=== PATIENT | male | born 1950 | race Caucasian/White ===

== ENCOUNTER 2020-01-12 07:52 | Outpatient (REF) | payer MEDICARE, MEDICAID, SELFPAY ==
[2020-01-12 09:15] LABS: MANUAL DIFF FLAG NO
[2020-01-12 09:18] LABS: Basophils Percent Auto 0.4 % (0-2); Eosinophils Percent Auto 0.8 % (0-4); Hematocrit 39.1 % (42-52); Imm Gran Abs Auto 0.02 X10*3/uL (0.00-0.03); Imm Gran Pct Auto 0.4 % (0.0-0.4); Lymphocytes Percent Auto 39.5 % (20-40); Mean Corpuscular HGB Conc 33.2 g/dl (31.0-36.0); Mean Corpuscular Hemoglobin 30.1 pg (27.0-33.0); Mean Corpuscular Volume 90.5 fL (80-98); Mean Platelet Volume 9.6 fL (9.4-12.4); Monocytes Absolute Auto 0.5 X10*3/uL (0.1-1.2); Monocytes Percent Auto 10.1 % (2-11); Neutrophils Absolute Auto 2.5 X10*3/uL (2.0-8.3); Neutrophils Percent Auto 48.8 % (45-73); Platelet Count 199 X10*3/uL (160-400); Red Blood Count 4.32 X10*6/uL (4.60-5.80); Red Cell Distribution Width 13.1 % (11.0-16.0); White Blood Count 5.2 X10*3/uL (4.8-10.8)
[2020-01-12 09:48] LABS: Creatinine Urine 92.76 mg/dL; Microalbum/Creatinine Ratio Ur 150.9 ug/mg cr
[2020-01-12 09:52] LABS: Alanine Aminotransferase 14 U/L (0-40); Albumin Level 4.2 g/dL (3.5-5.0); Alkaline Phosphatase 77 U/L (39-117); Anion Gap 11 (12-20); Aspartate Amino Transferase 18 U/L (5-37); Bilirubin Total 0.4 mg/dL (0.0-1.0); Blood Urea Nitrogen 15 mg/dL (9-16); Carbon Dioxide 27 mmol/L (22-29); Chloride 103 mmol/L (96-108); Estimated Glomerular Filt Rate > 60; Glucose Random 216 mg/dL (60-115); Potassium 4.4 mmol/l (3.3-5.1); Sodium 137 mmol/L (135-145); Total Protein 7.3 g/dL (6.5-8.0)
[2020-01-12 10:06] LABS: Thyroid Stimulating Hormone 3.19 mIU/mL (0.32-4.0)
[2020-01-12 10:07] LABS: Cholesterol 88 mg/dL; HDL Cholesterol 32 mg/dL; LDL Cholesterol Calculated 35 mg/dl; Triglycerides 107 mg/dL
[2020-01-12 10:44] LABS: Estimated Average Glucose 240 mg/dL
== END 2020-01-12 07:53 | disposition home or self-care (01) ==
LOC: HO.LAB 07:52
PROVIDERS: PCP Internal Medicine; Visit Provider Internal Medicine
DX: E11.69 Type 2 diabetes mellitus with other specified complication (principal); M54.2 Cervicalgia; N43.3 Hydrocele, unspecified
CPT/HCPCS: 36415; 80053; 80061; 82043; 83036; 84443; 85025

== ENCOUNTER → 2020-03-01 14:32 | Outpatient (BNVA) | payer MEDICARE, MEDICAID, SELFPAY | PROVIDERS: Visit Provider Student in an Organized Health Care Education/Training Program | DX: M65.312 Trigger thumb, left thumb (principal) | CPT/HCPCS: 20550; 99211 ==

== ENCOUNTER 2020-05-03 15:25 | Emergency (ER) | payer MEDICARE, MEDICAID, SELFPAY ==
[2020-05-03 15:38] VITALS: BP 126/69; BP 128/60; PULSE 85; PULSE 86; RESP 16; TEMP 37.4; O2SAT 97; O2SAT 99; BMI 25.8
--- NOTE | 2020-05-03 16:22 | XR_ITS ---
EXAMINATION: XR CHEST CLINICAL INFORMATION: Cough, assess for pneumonia. COMPARISON: None TECHNIQUE: Portable upright AP view of the chest was obtained. FINDINGS: Patient is slightly rotated. There is no airspace consolidation or groundglass opacity. Tapering right cardiophrenic angle is consistent with areolar tissue on slightly rotated image. The heart is normal in size. The vascularity is normal. The costophrenic sulci are clear. The hilar and mediastinal contours are normal. There are degenerative changes thoracic spine. XR/XR chest 1V IMPRESSION: Unremarkable examination.
--- NOTE | 2020-05-03 16:27 | ED.GENADULT ---
HPI - General Adult General Chief complaint: General Medical Stated complaint: fever chills Time Seen by Provider: 05/03/20 16:17 Source: patient Mode of arrival: ambulatory Limitations: no limitations History of Present Illness HPI narrative: 69-year-old male with a past medical history of diabetes and high cholesterol here with tactile temp, chills, headache, cough, body aches times 24 hours. No shortness of breath, chest pain, vomiting, diarrhea, abdominal pain. Onset (ago): hour(s) Related Data Home Medications Medication Instructions Recorded Confirmed clonazepam 1 mg tablet 1 mg PO BEDTIME 03/01/20 03/01/20 gabapentin 300 mg capsule 300 mg PO TID 03/01/20 03/01/20 insulin glargine 100 unit/mL 1 unit SUBCUT DIRECTED ml 03/01/20 03/01/20 subcutaneous solution insulin lispro 100 unit/mL 1 sliding scale dose SUBCUT 03/01/20 03/01/20 subcutaneous solution USEASDIRECTD lisinopril 10 mg tablet 10 mg PO DAILY 03/01/20 03/01/20 metformin 1,000 mg tablet 1,000 mg PO BID 03/01/20 03/01/20 quetiapine 100 mg tablet 100 mg PO BEDTIME 03/01/20 03/01/20 rosuvastatin 10 mg tablet 10 mg PO DAILY 03/01/20 03/01/20 Allergies Allergy/AdvReac Type Severity Reaction Status Date / Time No Known Allergies Allergy Verified 05/03/20 15:41 [No Known Allergies*] Review of Systems Review of Systems: Yes all other systems are reviewed and are negative Constitutional: Constitutional: Reports no additional constitutional complaints, Reports body ache(s), Reports chills, Reports fever(s), Reports headache(s) and Denies weakness Eyes: Eyes: Reports no additional eye complaints and Denies change in vision ENT: Reports system reviewed and no additional complaints, except as documented, Denies dizziness, Reports headache(s), Denies nasal congestion, Denies nasal discharge and Denies neck pain Cardiovascular: Cardiovascular: Reports no additional cardiovascular complaints, Denies chest pain, Denies leg edema and Denies dyspnea Respiratory: Respiratory: Reports no additional respiratory complaints, Reports cough and Denies dyspnea Gastrointestinal: Gastrointestinal: Reports no additional gastrointestinal complaints, Denies abdominal pain, Denies diarrhea, Denies nausea and Denies vomiting Genitourinary: Genitourinary: Denies urinary incontinence Musculoskeletal: Musculoskeletal: Reports no additional musculoskeletal complaints, Denies back pain, Denies arthralgias, Denies joint swelling, Denies neck pain, Denies numbness and Denies tingling Integumentary/Breasts: Skin/Breast: Reports system reviewed and no additional complaints, except as docu and Denies rash Neurologic: Reports system reviewed and no additional complaints, except as documented, Denies Abnormal speech present, Denies dizziness, Reports headache(s), Denies numbness, Denies tingling and Denies weakness REPLACED BY [facility] Past Medical History Attestation statement: The following information was validated with the patient. Source: old records reviewed and nursing notes reviewed Medical History Diabetes High cholesterol Social History Social History Alcohol intake: never Smoking Status: Never smoker Use of substances other than those prescribed or required for medical reasons: No Advance Directives: No Advance Directives Information Provided: Yes Physical Exam Vital Signs: Vital Signs: Last Vital Signs Temp 99.3 F 05/03/20 15:38 Pulse 86 05/03/20 15:38 Resp 16 05/03/20 15:38 BP 126/69 05/03/20 15:38 Pulse Ox 99 05/03/20 15:38 Body Mass Index 25.8 Const: General: cooperative, healthy appearing, comfortable and no acute distress Orientation/consciousness: patient oriented x3 Limitations: no limitations HENMT: Head: Yes normal to inspection Ears: hearing grossly normal bilaterally General nose exam: Normal external nose present Face and sinus: Yes normal facial exam Mouth: Normal oral and palatal mucosa present Throat: Yes posterior oropharynx normal Eyes: General: appearance normal, both eyes and all related structures Pupils: Equal, round and reactive pupils present Neck: Neck: Yes normal visual inspection Chest: Chest palpation & inspection: normal inspection of the chest Resp: Effort & Inspection: normal respiratory effort Auscultation: clear to auscultation bilaterally Cardio: Rate: regular rate Rhythm: regular rhythm Peripheral pulses: Peripheral pulses 2+ throughout GI: Inspection: Yes normal to inspection Palpation (GI): Soft to palpation and nontender Auscultation: normal bowel sounds Back/Spine/Pelvis: Thoracic/Lumbar Spine: thoracic and lumbar spine normal to inspection Skin: General skin exam: no rashes or lesions noted Neuro: General: patient oriented x3, no focal motor deficits and normal sensation to monofilament Cranial nerves: Yes Equal, round and reactive pupils present Cognition (Neuro): normal cognition Speech: No Abnormal speech present Gait exam (Neuro): Normal gait present Motor exam (neuro): 5/5 motor strength present throughout Extrem: General: Yes normal to inspection Course Course Course Narrative: 69-year-old male here with tactile temps, chills, cough, body aches x1 day. Will need COVID test, chest x-ray, labs. 1745-COVID test positive. Chest x-ray unremarkable for underlying infection. Labs show mild leukopenia and mild thrombocytopenia which are consistent with a viral infection. No other acute findings. Stable saturations with oxygen greater than 98%. No tachypnea. Well appearing. Reviewed worrisome signs and symptoms and when to return to the emergency department. Comfortable discharge home. Medical Decision Making Medical Records Medical records reviewed: Yes I reviewed the patient's medical records. Lab Data Lab results reviewed: Yes I reviewed the patient's lab results. Result diagrams: 05/03/20 17:00 05/03/20 17:00 Labs: Lab Results 05/03/20 05/03/20 05/03/20 Range/Units 16:29 17:00 17:00 WBC 3.2 L (4.8-10.8) X10*3/uL RBC 4.05 L (4.60-5.80) X10*6/uL Hgb 12.3 L (14.0-18.0) g/dl Hct 37.0 L (42-52) % MCV 91.4 (80-98) fL MCH 30.4 (27.0-33.0) pg MCHC 33.2 (31.0-36.0) g/dl RDW 13.2 (11.0-16.0) % Plt Count 152 L (160-400) X10*3/uL MPV 9.5 (9.4-12.4) fL Immature Gran % (Auto) 0.3 (0.0-0.4) % Neut % (Auto) 57.1 (45-73) % Lymph % (Auto) 23.5 (20-40) % [place] % (Auto) 17.9 H (2-11) % Eos % (Auto) 0.3 (0-4) % Baso % (Auto) 0.9 (0-2) % Lymph # (Auto) 0.8 L (1.2-4.9) X10*3/uL [place] # (Auto) 0.6 (0.1-1.2) X10*3/uL Eos # (Auto) 0.0 (0.0-0.4) X10*3/uL Baso # (Auto) 0.0 (0.0-0.2) X10*3/uL Abs Immat Gran (auto) 0.01 (0.00-0.03) X10*3/uL Absolute Neuts (auto) 1.8 L (2.0-8.3) X10*3/uL Absolute Nucleated RBC 0.000 (0.0-0.012) X10*3/uL Nucleated RBC % (auto) 0.0 (0.0-0.2) /100WBC Sodium 135 (135-145) mmol/L Potassium 4.6 (3.3-5.1) mmol/l Chloride 102 (96-108) mmol/L Carbon Dioxide 26 (22-29) mmol/L Anion Gap 12 (12-20) BUN 17 H (9-16) mg/dL Creatinine 0.92 (0.5-1.4) mg/dL Estim Creat Clear Calc 75.3 Estimated GFR > 60 Random Glucose 218 H (60-115) mg/dL Calcium 8.6 (8.4-10.2) mg/dL COVID-19 (MYRNA) Positive A (Negative) COVID-19 Clin Com See Note Imaging Data Chest x-ray: Attestation: I personally reviewed and interpreted this imaging study as follows: Radiologist's impression: [address] [id number] ReportSigned Patient: Sudhakar GarciaDominick#: [id number]: 3Acct:[id number]/Sex: 69 / MADM Date: 05/03/20Loc: Rachna Alvarez: Ordering Physician: POOJA GOMEZ NP Date of Service: 05/03/20 Procedure(s): XR chest 1V Accession Number(s): [id number] cc: POOJA GOMEZ NP~ EXAMINATION: XR CHEST CLINICAL INFORMATION: Cough, assess for pneumonia. COMPARISON: None TECHNIQUE: Portable upright AP view of the chest was obtained. FINDINGS: Patient is slightly rotated. There is no airspace consolidation or groundglass opacity. Tapering right cardiophrenic angle is consistent with areolar tissue on slightly rotated image. The heart is normal in size. The vascularity is normal. The costophrenic sulci are clear. The hilar and mediastinal contours are normal. There are degenerative changes thoracic spine. XR/XR chest 1V IMPRESSION: Unremarkable examination. Discharge Plan Discharge Clinical Impression: COVID-19 Patient Disposition: Home, Self-Care Instructions: COVID-19 (Coronavirus Disease 2019) (ED) Additional Instructions: You tested positive today for COVID-19. This is a viral infection will self resolve. You need to quarantine in your home for 10 days and your symptoms resolve for 24 hours. Take Motrin or Tylenol if able as needed for pain or fever Increase fluids, rest Return for severe shortness of breath or chest pain or fever which does not respond to Motrin or Tylenol Consider buying a pulse oximeter and monitoring your oxygen levels at home and returning to the emergency department if your levels drop below 90% Prescriptions: No Action quetiapine [Seroquel] 100 mg tablet 100 mg PO BEDTIME RF: 0 lisinopril 10 mg tablet 10 mg PO DAILY RF: 0 metformin 1,000 mg tablet 1,000 mg PO BID RF: 0 gabapentin 300 mg capsule 300 mg PO TID RF: 0 rosuvastatin 10 mg tablet 10 mg PO DAILY RF: 0 clonazepam 1 mg tablet 1 mg PO BEDTIME RF: 0 insulin lispro [Humalog U-100 Insulin] 100 unit/mL solution 1 sliding scale dose subcut USEASDIRECTD RF: 0 Lantus U-100 Insulin 100 unit/mL solution 1 unit subcut DIRECTED RF: 0 Referrals: Carine Chamberlain MD [Primary Care Provider] - 2 days Interventions: ED Discharge Assessment Last Done: 05/03/20 18:18 Discharge Date/Time: 05/03/20 18:10 Print Language: American
[2020-05-03 16:51] LABS: COVID-19 Test Positive (Negative); IDNOW Serial# 9DD0AD1C
[2020-05-03 17:20] LABS: MANUAL DIFF FLAG NO
[2020-05-03 17:23] LABS: Basophils Percent Auto 0.9 % (0-2); Eosinophils Percent Auto 0.3 % (0-4); Hemoglobin 12.3 g/dl (14.0-18.0); Imm Gran Abs Auto 0.01 X10*3/uL (0.00-0.03); Imm Gran Pct Auto 0.3 % (0.0-0.4); Lymphocytes Absolute Auto 0.8 X10*3/uL (1.2-4.9); Lymphocytes Percent Auto 23.5 % (20-40); Mean Corpuscular HGB Conc 33.2 g/dl (31.0-36.0); Mean Corpuscular Hemoglobin 30.4 pg (27.0-33.0); Mean Corpuscular Volume 91.4 fL (80-98); Mean Platelet Volume 9.5 fL (9.4-12.4); Monocytes Absolute Auto 0.6 X10*3/uL (0.1-1.2); Monocytes Percent Auto 17.9 % (2-11); Neutrophils Absolute Auto 1.8 X10*3/uL (2.0-8.3); Neutrophils Percent Auto 57.1 % (45-73); Platelet Count 152 X10*3/uL (160-400); Red Blood Count 4.05 X10*6/uL (4.60-5.80); Red Cell Distribution Width 13.2 % (11.0-16.0); White Blood Count 3.2 X10*3/uL (4.8-10.8)
[2020-05-03 17:43] LABS: Anion Gap 12 (12-20); Blood Urea Nitrogen 17 mg/dL (9-16); Calcium 8.6 mg/dL (8.4-10.2); Carbon Dioxide 26 mmol/L (22-29); Chloride 102 mmol/L (96-108); Creatinine Clr Calc Pharmacy 75.3; Estimated Glomerular Filt Rate > 60; Glucose Random 218 mg/dL (60-115); Potassium 4.6 mmol/l (3.3-5.1); Sodium 135 mmol/L (135-145)
== END 2020-05-03 18:10 | disposition home or self-care (01) ==
PROVIDERS: Nurse Practitioner Family; Emergency Provider Internal Medicine; PCP Internal Medicine
DX: U07.1 COVID-19 (principal); E11.9 Type 2 diabetes mellitus without complications; Z79.4 Long term (current) use of insulin
CPT/HCPCS: 36415; 71045; 80048; 85025; 87635; 99283; 99284

== ENCOUNTER 2020-05-10 15:58 | Emergency (ER) | payer MEDICARE, MEDICAID, SELFPAY ==
[2020-05-10 16:01] VITALS: BP 119/70; BP 140/72; PULSE 106; PULSE 115; RESP 35; TEMP 37.9; O2SAT 96; BMI 27.4
--- NOTE | 2020-05-10 16:08 | ED.SOB ---
HPI - SOB/Dyspnea General Stated Complaint: tachycardia covid Time Seen by Provider: 05/10/20 16:00 Related Data Home Medications Medication Instructions Recorded Confirmed clonazepam 1 mg tablet 1 mg PO BEDTIME 03/01/20 03/01/20 gabapentin 300 mg capsule 300 mg PO TID 03/01/20 03/01/20 insulin glargine 100 unit/mL 1 unit SUBCUT DIRECTED ml 03/01/20 03/01/20 subcutaneous solution insulin lispro 100 unit/mL 1 sliding scale dose SUBCUT 03/01/20 03/01/20 subcutaneous solution USEASDIRECTD lisinopril 10 mg tablet 10 mg PO DAILY 03/01/20 03/01/20 metformin 1,000 mg tablet 1,000 mg PO BID 03/01/20 03/01/20 quetiapine 100 mg tablet 100 mg PO BEDTIME 03/01/20 03/01/20 rosuvastatin 10 mg tablet 10 mg PO DAILY 03/01/20 03/01/20 Allergies Allergy/AdvReac Type Severity Reaction Status Date / Time No Known Allergies Allergy Verified 05/03/20 15:41 [No Known Allergies*] [facility] Past Medical History Medical History Diabetes High cholesterol Social History Social History Alcohol intake: never Smoking Status: Never smoker Discharge Plan Discharge Prescriptions: No Action quetiapine [Seroquel] 100 mg tablet 100 mg PO BEDTIME RF: 0 lisinopril 10 mg tablet 10 mg PO DAILY RF: 0 metformin 1,000 mg tablet 1,000 mg PO BID RF: 0 gabapentin 300 mg capsule 300 mg PO TID RF: 0 rosuvastatin 10 mg tablet 10 mg PO DAILY RF: 0 clonazepam 1 mg tablet 1 mg PO BEDTIME RF: 0 insulin lispro [Humalog U-100 Insulin] 100 unit/mL solution 1 sliding scale dose subcut USEASDIRECTD RF: 0 Lantus U-100 Insulin 100 unit/mL solution 1 unit subcut DIRECTED RF: 0
--- NOTE | 2020-05-10 16:20 | ED_ITS ---
HPI - General Adult General Chief complaint: Fever Stated complaint: tachycardia covid Time Seen by Provider: 05/10/20 16:00 Source: patient Mode of arrival: EMS Limitations: language barrier History of Present Illness HPI narrative: Patient COVID positive for last 1 week comes here for weakness body aches fever of reaching to 103 degrees F dry cough mild shortness of breath malaise and not feeling good checked his blood sugar was less than 200. Patient denies any nausea/vomiting/diarrhea no loss of taste sensations no loss of smell ambulatory as such Related Data Home Medications Medication Instructions Recorded Confirmed clonazepam 1 mg tablet 1 mg PO BEDTIME 03/01/20 03/01/20 gabapentin 300 mg capsule 300 mg PO TID 03/01/20 03/01/20 insulin glargine 100 unit/mL 1 unit SUBCUT DIRECTED ml 03/01/20 03/01/20 subcutaneous solution insulin lispro 100 unit/mL 1 sliding scale dose SUBCUT 03/01/20 03/01/20 subcutaneous solution USEASDIRECTD lisinopril 10 mg tablet 10 mg PO DAILY 03/01/20 03/01/20 metformin 1,000 mg tablet 1,000 mg PO BID 03/01/20 03/01/20 quetiapine 100 mg tablet 100 mg PO BEDTIME 03/01/20 03/01/20 rosuvastatin 10 mg tablet 10 mg PO DAILY 03/01/20 03/01/20 Allergies Allergy/AdvReac Type Severity Reaction Status Date / Time No Known Allergies Allergy Verified 05/03/20 15:41 [No Known Allergies*] Review of Systems Review of Systems: Constitutional : No Weight loss, ++ Fever, No Chills ENT/Mouth : No sore throat, No Rhinorrhea Eyes: No Eye Pain, No Swelling Cardiovascular : No Chest Pain, no palpitations Respiratory : No Cough, No Sputum, no shortness of breath Gastrointestinal : no Nausea, No Vomiting, No Diarrhea, No abdominal Pain, no black stools Genitourinary : No Dysuria, No Urinary Frequency Musculoskeletal : No joint pain, No Myalgias, No Joint Swelling Skin : No Skin Lesions, No rash Neuro : ++ Weakness, No Numbness, No Dizziness, No Headache Psych : No Anxiety/Panic, No Depression Heme/Lymph: No Bruising, No Lymphadenopathy Endocrine : No Polyuria, No Polydipsia All other systems reviewed and are negative PMFSH Past Medical History Medical History Anxiety Arthritis Diabetes High cholesterol HTN (hypertension) Social History Social History Alcohol intake: never Smoking Status: Never smoker Use of substances other than those prescribed or required for medical reasons: No Advance Directives: No Advance Directives Information Provided: No Physical Exam Vital Signs: Vital Signs: Last Vital Signs Temp 99.4 F 05/10/20 17:56 Pulse 89 05/10/20 17:56 Resp 16 05/10/20 17:56 BP 134/89 05/10/20 17:56 Pulse Ox 99 05/10/20 17:56 Body Mass Index 27.4 Appearance: Alert. Oriented X3. No acute distress. Febrile Eyes: Pupils equal, round and reactive to light. ENT: Pharynx normal. Neck: Normal inspection. Neck supple. CVS: Sinus tachycardia no murmur. Pulses normal. Respiratory: No respiratory distress. Breath sounds normal. Abdomen: Soft and nontender. Bowel sounds are present, no mass palpable, no CVA tenderness Skin: Skin warm and dry. Normal skin color. Normal skin turgor. Extremities: No lower extremity edema. Neuro: Oriented X 3. No motor deficit. No sensory deficit. Course Course Course Narrative: Patient with COVID infection for last 1 week x-ray negative no shortness of breath labs are stable still having the fever and malaise which is part of the COVID infection patient advised to rest at home drink plenty of fluid will discharge patient home Medical Decision Making MDM Narrative Medical decision making narrative: Patient with COVID-19 infection workup is essentially negative chest x-ray negative no shortness of breath saturating 96% at room air will discharge patient home Lab Data Lab results reviewed: Yes I reviewed the patient's lab results. Result diagrams: 05/10/20 16:54 05/10/20 16:54 Labs: Lab Results 05/10/20 05/10/20 05/10/20 Range/Units 16:54 16:54 16:54 WBC 2.9 L (4.8-10.8) X10*3/uL RBC 3.80 L (4.60-5.80) X10*6/uL Hgb 11.5 L (14.0-18.0) g/dl Hct 35.1 L (42-52) % MCV 92.4 (80-98) fL MCH 30.3 (27.0-33.0) pg MCHC 32.8 (31.0-36.0) g/dl RDW 13.2 (11.0-16.0) % Plt Count 152 L (160-400) X10*3/uL MPV 9.2 L (9.4-12.4) fL Immature Gran % (Auto) 0.3 (0.0-0.4) % Neut % (Auto) 59.5 (45-73) % Lymph % (Auto) 29.3 (20-40) % [place] % (Auto) 9.2 (2-11) % Eos % (Auto) 1.4 (0-4) % Baso % (Auto) 0.3 (0-2) % Lymph # (Auto) 0.9 L (1.2-4.9) X10*3/uL [place] # (Auto) 0.3 (0.1-1.2) X10*3/uL Eos # (Auto) 0.0 (0.0-0.4) X10*3/uL Baso # (Auto) 0.0 (0.0-0.2) X10*3/uL Abs Immat Gran (auto) 0.01 (0.00-0.03) X10*3/uL Absolute Neuts (auto) 1.8 L (2.0-8.3) X10*3/uL Absolute Nucleated RBC 0.000 (0.0-0.012) X10*3/uL Nucleated RBC % (auto) 0.0 (0.0-0.2) /100WBC Sodium 136 (135-145) mmol/L Potassium 4.5 (3.3-5.1) mmol/L Chloride 104 (96-108) mmol/L Carbon Dioxide 25 (22-29) mmol/L Anion Gap 12 (12-20) BUN 14 (9-16) mg/dL Creatinine 1.00 (0.5-1.4) mg/dL Estim Creat Clear Calc 69.3 Estimated GFR > 60 Random Glucose 199 H (60-115) mg/dL Lactic Acid 1.1 (0.5-2.0) mmol/L Calcium 7.9 L D (8.4-10.2) mg/dL Total Bilirubin 0.6 (0.0-1.0) mg/dL Direct Bilirubin 0.2 (0.0-0.5) mg/dL AST 46 H D (5-37) U/L ALT 21 (0-40) U/L Alkaline Phosphatase 66 (39-117) U/L Total Protein 6.6 (6.5-8.0) g/dL Albumin 3.7 (3.5-5.0) g/dL Lipase 38 (8-78) U/L 05/10/20 Range/Units 16:54 WBC (4.8-10.8) X10*3/uL RBC (4.60-5.80) X10*6/uL Hgb (14.0-18.0) g/dl Hct (42-52) % MCV (80-98) fL MCH (27.0-33.0) pg MCHC (31.0-36.0) g/dl RDW (11.0-16.0) % Plt Count (160-400) X10*3/uL MPV (9.4-12.4) fL Immature Gran % (Auto) (0.0-0.4) % Neut % (Auto) (45-73) % Lymph % (Auto) (20-40) % [place] % (Auto) (2-11) % Eos % (Auto) (0-4) % Baso % (Auto) (0-2) % Lymph # (Auto) (1.2-4.9) X10*3/uL [place] # (Auto) (0.1-1.2) X10*3/uL Eos # (Auto) (0.0-0.4) X10*3/uL Baso # (Auto) (0.0-0.2) X10*3/uL Abs Immat Gran (auto) (0.00-0.03) X10*3/uL Absolute Neuts (auto) (2.0-8.3) X10*3/uL Absolute Nucleated RBC (0.0-0.012) X10*3/uL Nucleated RBC % (auto) (0.0-0.2) /100WBC Sodium (135-145) mmol/L Potassium (3.3-5.1) mmol/L Chloride (96-108) mmol/L Carbon Dioxide (22-29) mmol/L Anion Gap (12-20) BUN (9-16) mg/dL Creatinine (0.5-1.4) mg/dL Estim Creat Clear Calc Estimated GFR Random Glucose (60-115) mg/dL Lactic Acid (0.5-2.0) mmol/L Calcium (8.4-10.2) mg/dL Total Bilirubin (0.0-1.0) mg/dL Direct Bilirubin (0.0-0.5) mg/dL AST (5-37) U/L ALT (0-40) U/L Alkaline Phosphatase (39-117) U/L Total Protein (6.5-8.0) g/dL Albumin (3.5-5.0) g/dL Lipase Cancelled (8-78) U/L ECG Data Attestation: I personally reviewed and interpreted this ECG as follows: Interpretation: Normal sinus rhythm sinus tachycardia heart rate of 104 normal intervals normal axis no acute ST T wave changes impression sinus tachycardia no acute ischemia Discharge Plan Discharge Clinical Impression: COVID-19 Patient Disposition: Home, Self-Care Instructions: COVID-19 (Coronavirus Disease 2019) (ED) Additional Instructions: Eat well, drink plenty of fluids Take Tylenol for fever and body aches. Report to the ER if any increased shortness of breath Prescriptions: No Action quetiapine [Seroquel] 100 mg tablet 100 mg PO BEDTIME RF: 0 lisinopril 10 mg tablet 10 mg PO DAILY RF: 0 metformin 1,000 mg tablet 1,000 mg PO BID RF: 0 gabapentin 300 mg capsule 300 mg PO TID RF: 0 rosuvastatin 10 mg tablet 10 mg PO DAILY RF: 0 clonazepam 1 mg tablet 1 mg PO BEDTIME RF: 0 insulin lispro [Humalog U-100 Insulin] 100 unit/mL solution 1 sliding scale dose subcut USEASDIRECTD RF: 0 Lantus U-100 Insulin 100 unit/mL solution 1 unit subcut DIRECTED RF: 0 Interventions: ED Discharge Assessment Last Done: 05/10/20 17:58 Discharge Date/Time: 05/10/20 18:10
--- NOTE | 2020-05-10 16:21 | XR_ITS ---
EXAMINATION: XR CHEST CLINICAL INFORMATION: COVID positive. COMPARISON: 05/03/2020 portable chest. TECHNIQUE: Frontal view of the chest was obtained. FINDINGS: No significant abnormality is noted involving the heart, lungs, mediastinum, bony thorax or soft tissues. XR/XR chest 1V IMPRESSION: No acute cardiopulmonary process.
--- NOTE | 2020-05-10 16:21 | ECG_ITS ---
Test Reason : SOB Blood Pressure : / mmHG Vent. Rate : 104 BPM Atrial Rate : 104 BPM P-R Int : 144 ms QRS Dur : 088 ms QT Int : 322 ms P-R-T Axes : 063 047 061 degrees QTc Int : 423 ms Sinus tachycardia Otherwise normal ECG When compared to the previous EKG of Sinus tachycardia present Referred By: Herb Daley Electronically Signed By:Shamir Lozano
[2020-05-10] MEDS: 0.9 % Sodium Chloride 1,000 ML 999 ML IVCONT (16:58)
[2020-05-10] MEDS: Acetaminophen 325 MG TABLET 650 MG PO (17:00)
[2020-05-10 17:01] LABS: MANUAL DIFF FLAG NO
[2020-05-10 17:03] LABS: Basophils Percent Auto 0.3 % (0-2); Eosinophils Percent Auto 1.4 % (0-4); Hematocrit 35.1 % (42-52); Hemoglobin 11.5 g/dl (14.0-18.0); Imm Gran Abs Auto 0.01 X10*3/uL (0.00-0.03); Imm Gran Pct Auto 0.3 % (0.0-0.4); Lymphocytes Absolute Auto 0.9 X10*3/uL (1.2-4.9); Lymphocytes Percent Auto 29.3 % (20-40); Mean Corpuscular HGB Conc 32.8 g/dl (31.0-36.0); Mean Corpuscular Hemoglobin 30.3 pg (27.0-33.0); Mean Corpuscular Volume 92.4 fL (80-98); Mean Platelet Volume 9.2 fL (9.4-12.4); Monocytes Absolute Auto 0.3 X10*3/uL (0.1-1.2); Monocytes Percent Auto 9.2 % (2-11); Neutrophils Absolute Auto 1.8 X10*3/uL (2.0-8.3); Neutrophils Percent Auto 59.5 % (45-73); Platelet Count 152 X10*3/uL (160-400); Red Cell Distribution Width 13.2 % (11.0-16.0); White Blood Count 2.9 X10*3/uL (4.8-10.8)
[2020-05-10 17:22] VITALS: BP 129/74; PULSE 98; RESP 30; O2SAT 97
[2020-05-10 17:25] LABS: Alanine Aminotransferase 21 U/L (0-40); Albumin Level 3.7 g/dL (3.5-5.0); Alkaline Phosphatase 66 U/L (39-117); Anion Gap 12 (12-20); Aspartate Amino Transferase 46 U/L (5-37); Bilirubin Direct 0.2 mg/dL (0.0-0.5); Bilirubin Total 0.6 mg/dL (0.0-1.0); Blood Urea Nitrogen 14 mg/dL (9-16); Calcium 7.9 mg/dL (8.4-10.2); Carbon Dioxide 25 mmol/L (22-29); Chloride 104 mmol/L (96-108); Creatinine Clr Calc Pharmacy 69.3; Estimated Glomerular Filt Rate > 60; Glucose Random 199 mg/dL (60-115); Lipase 38 U/L (8-78); Potassium 4.5 mmol/L (3.3-5.1); Sodium 136 mmol/L (135-145); Total Protein 6.6 g/dL (6.5-8.0)
[2020-05-10 17:33] LABS: Lactic Acid 1.1 mmol/L (0.5-2.0)
[2020-05-10 17:56] VITALS: BP 134/89; PULSE 89; RESP 16; TEMP 37.4; O2SAT 99
== END 2020-05-10 18:10 | disposition home or self-care (01) ==
PROVIDERS: Emergency Provider Internal Medicine
DX: U07.1 COVID-19 (principal); R50.9 Fever, unspecified; M79.10 Myalgia, unspecified site
CPT/HCPCS: 36415; 71045; 80048; 80076; 83605; 83690; 85025; 87040; 93005; 96360; 99284

== ENCOUNTER 2020-05-24 15:15 | Outpatient (REF) | payer MEDICARE, MEDICAID, SELFPAY | END 2020-05-24 15:16 | disposition home or self-care (01) | LOC: HO.LAB 15:15 | PROVIDERS: Visit Provider Internal Medicine | DX: Z20.822 Contact with and (suspected) exposure to COVID-19 (principal) | CPT/HCPCS: 36415; C9803; U0003; U0005 ==

== ENCOUNTER 2020-05-28 11:22 | Outpatient (REF) | payer MEDICARE, MEDICAID, SELFPAY | END 2020-05-28 11:23 | disposition home or self-care (01) | LOC: HO.LAB 11:22 | PROVIDERS: PCP Internal Medicine; Visit Provider Internal Medicine | DX: Z20.822 Contact with and (suspected) exposure to COVID-19 (principal) | CPT/HCPCS: 36415; C9803; U0003; U0005 ==

== ENCOUNTER 2020-06-27 08:20 | Outpatient (REF) | payer MEDICARE, MEDICAID, SELFPAY ==
[2020-06-27 09:07] LABS: MANUAL DIFF FLAG NO
[2020-06-27 09:10] LABS: Basophils Percent Auto 0.6 % (0-2); Eosinophils Absolute Auto 0.1 X10*3/uL (0.0-0.4); Imm Gran Abs Auto 0.01 X10*3/uL (0.00-0.03); Imm Gran Pct Auto 0.2 % (0.0-0.4); Lymphocytes Absolute Auto 2.5 X10*3/uL (1.2-4.9); Mean Corpuscular HGB Conc 33.3 g/dl (31.0-36.0); Mean Platelet Volume 9.6 fL (9.4-12.4); Monocytes Absolute Auto 0.6 X10*3/uL (0.1-1.2); Monocytes Percent Auto 12.2 % (2-11); Neutrophils Absolute Auto 1.8 X10*3/uL (2.0-8.3); Platelet Count 194 X10*3/uL (160-400); Red Cell Distribution Width 13.3 % (11.0-16.0)
[2020-06-27 09:25] LABS: Estimated Average Glucose 252 mg/dL; Hemoglobin A1c % 10.4 %
[2020-06-27 09:49] LABS: Alanine Aminotransferase 8 U/L (0-40); Alkaline Phosphatase 85 U/L (39-117); Anion Gap 13 (12-20); Aspartate Amino Transferase 14 U/L (5-37); Bilirubin Total 0.6 mg/dL (0.0-1.0); Blood Urea Nitrogen 13 mg/dL (9-16); Calcium 8.7 mg/dL (8.4-10.2); Carbon Dioxide 27 mmol/L (22-29); Chloride 99 mmol/L (96-108); Estimated Glomerular Filt Rate > 60; Glucose Fasting 340 mg/dL (60-99); Potassium 4.5 mmol/L (3.3-5.1); Sodium 134 mmol/L (135-145); Total Protein 7.2 g/dL (6.5-8.0)
== END 2020-06-27 08:21 | disposition home or self-care (01) ==
LOC: HO.LAB 08:20
PROVIDERS: PCP Internal Medicine; Visit Provider Internal Medicine
DX: E11.9 Type 2 diabetes mellitus without complications (principal); R05 Cough; R10.30 Lower abdominal pain, unspecified; R21 Rash and other nonspecific skin eruption; R42 Dizziness and giddiness
CPT/HCPCS: 36415; 80053; 83036; 85025

== ENCOUNTER 2020-08-05 08:09 | Outpatient (REF) | payer MEDICARE, MEDICAID, SELFPAY ==
[2020-08-05 08:45] LABS: MANUAL DIFF FLAG NO
[2020-08-05 08:51] LABS: Basophils Percent Auto 0.2 % (0-2); Eosinophils Absolute Auto 0.1 X10*3/uL (0.0-0.4); Eosinophils Percent Auto 2.5 % (0-4); Hematocrit 37.8 % (42-52); Hemoglobin 12.4 g/dl (14.0-18.0); Imm Gran Abs Auto 0.01 X10*3/uL (0.00-0.03); Imm Gran Pct Auto 0.2 % (0.0-0.4); Lymphocytes Percent Auto 41.3 % (20-40); Mean Corpuscular HGB Conc 32.8 g/dl (31.0-36.0); Mean Corpuscular Hemoglobin 29.5 pg (27.0-33.0); Mean Platelet Volume 9.7 fL (9.4-12.4); Monocytes Absolute Auto 0.4 X10*3/uL (0.1-1.2); Monocytes Percent Auto 9.2 % (2-11); Neutrophils Absolute Auto 2.2 X10*3/uL (2.0-8.3); Neutrophils Percent Auto 46.6 % (45-73); Platelet Count 199 X10*3/uL (160-400); Red Cell Distribution Width 13.4 % (11.0-16.0); White Blood Count 4.8 X10*3/uL (4.8-10.8)
[2020-08-05 09:15] LABS: Alanine Aminotransferase 11 U/L (0-40); Albumin Level 4.1 g/dL (3.5-5.0); Alkaline Phosphatase 82 U/L (39-117); Anion Gap 14 (12-20); Aspartate Amino Transferase 21 U/L (5-37); Bilirubin Total 0.4 mg/dL (0.0-1.0); Blood Urea Nitrogen 14 mg/dL (9-16); Calcium 9.2 mg/dL (8.4-10.2); Carbon Dioxide 24 mmol/L (22-29); Chloride 101 mmol/L (96-108); Estimated Glomerular Filt Rate > 60; Glucose Fasting 313 mg/dL (60-99); Potassium 4.1 mmol/L (3.3-5.1); Sodium 135 mmol/L (135-145); Total Protein 7.2 g/dL (6.5-8.0)
[2020-08-05 09:17] LABS: Estimated Average Glucose 255 mg/dL; Hemoglobin A1c % 10.5 %
[2020-08-05 10:39] LABS: Vitamin B12 374 pg/mL (200-900)
== END 2020-08-05 08:10 | disposition home or self-care (01) ==
LOC: HO.LAB 08:09
PROVIDERS: PCP Internal Medicine; Visit Provider Internal Medicine
DX: D64.89 Other specified anemias (principal); E11.65 Type 2 diabetes mellitus with hyperglycemia; I10 Essential (primary) hypertension; R53.83 Other fatigue
CPT/HCPCS: 36415; 80053; 82607; 83036; 85025

== ENCOUNTER 2020-10-29 08:46 | Emergency (ER) | payer MEDICARE, MEDICAID, SELFPAY ==
--- NOTE | ~2020-10-29 | XR_ITS ---
EXAMINATION: XR CHEST CLINICAL INFORMATION: Upper back pain COMPARISON: Previous chest x-ray most recent April 2020 TECHNIQUE: 2 views of the chest were obtained. FINDINGS: The cardiac and mediastinal contours are stable. There is question of mild bronchial wall thickening in the right upper lobe, for example in between the right first and second anterior ribs. The lungs are otherwise clear. There is no pleural effusion or pneumothorax. There are degenerative changes of the spine. Bony structures are otherwise unremarkable. XR/XR chest 2V IMPRESSION: Question mild bronchial wall thickening in the right upper lobe. Degenerative changes of the spine.
--- NOTE | 2020-10-29 09:19 | ED.BACK ---
HPI - Back Pain/Injury General Chief Complaint: Back Pain/Injury Stated Complaint: Severe back Pain Time Seen by Provider: 10/29/20 09:19 Source: patient Mode of arrival: ambulatory Limitations: no limitations History of Present Illness HPI Narrative: Patient with one week of left upper back pain. Denies fever or cough. Denies injury, no prior injury. Patient sugar has been high. Hurts more with movement. MD elicited complaint: back pain Related Data Home Medications Medication Instructions Recorded Confirmed clonazepam 1 mg tablet 1 mg PO BEDTIME 03/01/20 03/01/20 gabapentin 300 mg capsule 300 mg PO TID 03/01/20 03/01/20 insulin glargine 100 unit/mL 1 unit SUBCUT DIRECTED ml 03/01/20 03/01/20 subcutaneous solution insulin lispro 100 unit/mL 1 sliding scale dose SUBCUT 03/01/20 03/01/20 subcutaneous solution USEASDIRECTD lisinopril 10 mg tablet 10 mg PO DAILY 03/01/20 03/01/20 metformin 1,000 mg tablet 1,000 mg PO BID 03/01/20 03/01/20 quetiapine 100 mg tablet 100 mg PO BEDTIME 03/01/20 03/01/20 rosuvastatin 10 mg tablet 10 mg PO DAILY 03/01/20 03/01/20 Previous Rx's Medication Instructions Recorded tamsulosin 0.4 mg capsule 0.4 mg PO DAILY 90 Days #90 cap 08/22/20 naproxen [Naprosyn] 500 mg PO BID #20 tab 10/29/20 Allergies Allergy/AdvReac Type Severity Reaction Status Date / Time No Known Allergies Allergy Verified 05/03/20 15:41 [No Known Allergies*] Review of Systems Constitutional: Constitutional: Reports no additional constitutional complaints Eyes: Eyes: Reports no additional eye complaints ENT: Denies dizziness Cardiovascular: Cardiovascular: Reports no additional cardiovascular complaints Respiratory: Respiratory: Reports as per HPI Gastrointestinal: Gastrointestinal: Reports no additional gastrointestinal complaints Musculoskeletal: Musculoskeletal: Reports no additional musculoskeletal complaints Integumentary/Breasts: Skin/Breast: Denies rash Neurologic: Denies dizziness and Denies Sensory deficit (Neuro) Psychiatric: Psychiatric: Denies anxiety PMFSH Past Medical History Medical History Anxiety Arthritis Diabetes High cholesterol HTN (hypertension) Social History Social History Alcohol intake: never Advance Directives: No Advance Directives Information Provided: No Physical Exam Vital Signs: Vital Signs: Last Vital Signs Temp 98.1 F 10/29/20 09:22 Pulse 84 10/29/20 09:22 Resp 20 10/29/20 09:22 BP 113/53 L 10/29/20 09:22 Pulse Ox 98 10/29/20 09:22 Body Mass Index 30.4 Const: General: healthy appearing Nutritional Appearance: average body habitus Orientation/consciousness: oriented to person and patient oriented x3 Limitations: no limitations HENMT: Head: Yes normal to inspection Ears: external ears normal General nose exam: Normal external nose present Mouth: Normal oral and palatal mucosa present and oropharynx normal Throat: Yes posterior oropharynx normal Eyes: General: appearance normal, both eyes and all related structures Neck: Other: supple Neck: Yes normal visual inspection Chest: Chest palpation & inspection: normal inspection of the chest Resp: Auscultation: clear to auscultation bilaterally Cardio: Jugular venous distension: no JVD Rate: regular rate Rhythm: regular rhythm Heart sounds: S1 normal heart sound present and S2 normal heart sound present GI: Inspection: Yes normal to inspection Palpation (GI): Soft to palpation, nontender and No hepatosplenomegaly present Auscultation: normal bowel sounds : General: Yes no CVA tenderness Back/Spine/Pelvis: Back: no CVA tenderness Skin: General skin exam: no rashes or lesions noted Neuro: General: oriented to person and patient oriented x3 Cranial nerves: Yes CN's II-XII intact bilaterally Motor exam (neuro): 5/5 motor strength present throughout Sensory Exam: No Sensory deficit (Neuro) Extrem: General: Yes normal to inspection Psych: Appearance: grossly normal Course Reevaluation(s) Reevaluation #1: no lung pathology, UA negative, glu 116 will dc patient home on NSAIds for his back pain Time: 11:46 MDM - Back Pain/Injury Lab Data Labs: Lab Results 10/29/20 10/29/20 Range/Units 09:50 09:54 POC Glucose 116 H (60-115) mg/dL Urine Color YELLOW Urine Appearance CLEAR Urine pH 7.0 (5.0-8.0) Ur Specific [place] 1.020 (1.005-1.025) Urine Protein 2+ H (NEG-TRACE) MG/DL Urine Glucose (UA) 250 H (NEG) MG/DL Urine Ketones NEG (NEG) MG/DL Urine Blood NEG (NEG) Urine Nitrite NEG (NEG) Ur Leukocyte Esterase NEG (NEG) Urine RBC 0-2 (0) /HPF Urine WBC 0-2 (0-4) /HPF Ur Squamous Epith Cells NONE /LPF Amorphous Sediment 1+ /LPF Urine Bacteria TRACE /LPF Urine Mucus TRACE /LPF Imaging Data Chest x-ray: Radiologist's impression: IMPRESSION: Question mild bronchial wall thickening in the right upper lobe. Degenerative changes of the spine. Discharge Plan Discharge Clinical Impression: Thoracic back pain Qualifiers: Chronicity: acute Back pain laterality: left Qualified Code(s): M54.6 - Pain in thoracic spine Patient Disposition: Home, Self-Care Instructions: Thoracic Pain (ED) Prescriptions: New naproxen [Naprosyn] 500 mg tablet 500 mg PO BID Qty: 20 RF: 0 No Action tamsulosin 0.4 mg capsule 0.4 mg PO DAILY 90 Days Qty: 90 RF: 2 quetiapine [Seroquel] 100 mg tablet 100 mg PO BEDTIME RF: 0 lisinopril 10 mg tablet 10 mg PO DAILY RF: 0 metformin 1,000 mg tablet 1,000 mg PO BID RF: 0 gabapentin 300 mg capsule 300 mg PO TID RF: 0 rosuvastatin 10 mg tablet 10 mg PO DAILY RF: 0 clonazepam 1 mg tablet 1 mg PO BEDTIME RF: 0 insulin lispro [Humalog U-100 Insulin] 100 unit/mL solution 1 sliding scale dose subcut USEASDIRECTD RF: 0 Lantus U-100 Insulin 100 unit/mL solution 1 unit subcut DIRECTED RF: 0
[2020-10-29 09:22] VITALS: BP 113/53; PULSE 84; RESP 20; TEMP 36.7; O2SAT 98; BMI 30.4
--- NOTE | 2020-10-29 09:43 | PC.NURSE ---
PT ASSESSMENT DONE WITH DR FISHMAN WITH STAFF ACADEMIC ADVISING DIRECTOR PLAN FOR XRAY POC AND URINE
[2020-10-29 09:55] LABS: Glucose, Whole Blood 116 mg/dL (60-115)
[2020-10-29 10:03] LABS: Glucose Urine UA 250 MG/DL (NEG); Leukocyte Esterase Urine NEG (NEG); Nitrite Urine NEG (NEG); Urine Blood NEG (NEG); Urine Ketones NEG (NEG); Urine Protein 2+ MG/DL (NEG-TRACE)
[2020-10-29 10:04] LABS: Appearance Urine CLEAR; Color Urine YELLOW
[2020-10-29 10:15] LABS: Bacteria Urine TRACE /LPF; Mucus Urine TRACE /LPF; RBC Urine 0-2 /HPF (0); WBC Urine 0-2 /HPF (0-4)
[2020-10-29 10:16] LABS: Amorphous Sediment Urine 1+ /LPF
== END 2020-10-29 12:08 | disposition home or self-care (01) ==
PROVIDERS: Emergency Provider Emergency Medicine; PCP Internal Medicine
DX: M54.6 Pain in thoracic spine (principal); E11.9 Type 2 diabetes mellitus without complications; I10 Essential (primary) hypertension; Z79.4 Long term (current) use of insulin; Z79.899 Other long term (current) drug therapy
CPT/HCPCS: 71046; 81001; 81003; 82947; 99283

== ENCOUNTER 2020-11-11 08:40 | Emergency (ER) | payer MEDICARE, MEDICAID, SELFPAY ==
--- NOTE | ~2020-11-11 | US_ITS ---
EXAMINATION: US SCROTUM CLINICAL INFORMATION: Bilateral pain. COMPARISON: None TECHNIQUE: A sonogram of the scrotum was performed assessing barrera-scale appearance and color Doppler flow. Spectral Doppler analysis of the arterial and venous flow were performed in the testes bilaterally. FINDINGS: RIGHT: Right testicle measures 2.9 x 2.4 x 2.6 cm, volume 9.5 mL. No focal testicular parenchymal lesions are visualized. Spectral Doppler analysis of the arterial and venous flow is normal in the right testis. Right epididymal head is normal in size. There is moderate size hydrocele greater than 42 mL.. No Varicocele is seen. Right epididymal Doppler flow is normal. There are echogenic calcifications measuring 0.4 0.4-0.4 cm. LEFT: Left testicle measures 3.0 x 2.1 x 2.2 cm, volume 7.2 mL. No focal testicular parenchymal lesions are visualized except for microlithiasis.. Spectral Doppler analysis of the arterial and venous flow is normal in the left testis. Left epididymal head is normal in size. There are 2 left epididymal cyst measuring 0.6 x 0.6 x 0.5 cm and 0.4 x 0.3 x 0.3 cm. There is a small epididymal appendix measuring 0.5 x 0.5 x 0.7 cm. There is a small left hydrocele measuring 6.2 mL. No varicocele is seen. Left epididymal Doppler flow is normal. US/US scrotum IMPRESSION: Bilateral hydrocele. Left epididymal 2 cysts are seen. Incidental finding of left epididymis appendix. There is bilateral echogenic calcifications and left testicular microlithiasis.
[2020-11-11 09:07] VITALS: BP 127/74; PULSE 86; RESP 18; TEMP 36.1; O2SAT 98; BMI 27.9
--- NOTE | 2020-11-11 09:39 | ED_ITS ---
HPI - Male Genitourinary General Chief complaint: Urogenital-Male Stated complaint: not feeling too good Time Seen by Provider: 11/11/20 09:37 Source: patient and acting section chief Mode of arrival: ambulatory Limitations: no limitations History of Present Illness MD Complaint: testicle pain, dysuria and other (pelvic pain) Onset (ago): day(s) (2) Duration: constant Location: right testicle and left testicle Severity: moderate Quality: aching and burning Relieving factors: none Exacerbating factors: palpation Associated symptoms: Reports dysuria Related Data Home Medications Medication Instructions Recorded Confirmed clonazepam 1 mg tablet 1 mg PO BEDTIME 03/01/20 03/01/20 gabapentin 300 mg capsule 300 mg PO TID 03/01/20 03/01/20 insulin glargine 100 unit/mL 1 unit SUBCUT DIRECTED ml 03/01/20 03/01/20 subcutaneous solution (Lantus U-100 Insulin) insulin lispro 100 unit/mL 1 sliding scale dose SUBCUT 03/01/20 03/01/20 subcutaneous solution (Humalog USEASDIRECTD U-100 Insulin) lisinopril 10 mg tablet 10 mg PO DAILY 03/01/20 03/01/20 metformin 1,000 mg tablet 1,000 mg PO BID 03/01/20 03/01/20 quetiapine 100 mg tablet (Seroquel) 100 mg PO BEDTIME 03/01/20 03/01/20 rosuvastatin 10 mg tablet 10 mg PO DAILY 03/01/20 03/01/20 Previous Rx's Medication Instructions Recorded tamsulosin 0.4 mg capsule 0.4 mg PO DAILY 90 Days #90 cap 08/22/20 naproxen 500 mg tablet (Naprosyn) 500 mg PO BID #20 tab 10/29/20 cefuroxime axetil 500 mg tablet 500 mg PO BID 7 Days #14 tab 11/11/20 hydrocodone 5 mg-acetaminophen 325 1 tab PO Q6H PRN #12 tab 11/11/20 mg tablet Allergies Allergy/AdvReac Type Severity Reaction Status Date / Time No Known Allergies Allergy Verified 05/03/20 15:41 [No Known Allergies*] Review of Systems Review of Systems: Constitutional : No Weight loss, No Fever, No Chills, No Fatigue, No Malaise ENT/Mouth : No sore throat, No Rhinorrhea Eyes: No Eye Pain, No Swelling, No Redness Cardiovascular : No Chest Pain, No SOB, No Dyspnea on Exertion, No Orthopnea, No Edema, No Palpitations Respiratory : No Cough, No Sputum, No Wheezing Gastrointestinal : No Nausea, No Vomiting, No Diarrhea, No Constipation, No abdominal Pain, No Hematochezia, No Melena Genitourinary : pos Dysuria, No Urinary Frequency, No Hematuria, pos pelvic pain, pos testicle pain Musculoskeletal : No joint pain, No Myalgias, No Joint Swelling Skin : No Skin Lesions, No rash Neuro : No Weakness, No Numbness, No Dizziness, No Headache Psych : No Anxiety/Panic, No Depression Heme/Lymph: No Bruising, No Bleeding,No Lymphadenopathy Endocrine : No Polyuria, No Polydipsia All other systems reviewed and are negative [facility] Past Medical History Attestation statement: The following information was validated with the patient. Medical History Anxiety Arthritis Diabetes High cholesterol HTN (hypertension) Social History Social History (Updated 11/11/20 @ 10:02 by Chelly Stanford DO) Alcohol intake: never Patient Tobacco Use Status: Never used Tobacco Advance Directives: Yes Advance Directives Information Provided: Yes Advance Directives on File: No Physical Exam Vital Signs: Vital Signs: Last Vital Signs Temp 98.4 F 11/11/20 12:11 Pulse 72 11/11/20 12:11 Resp 16 11/11/20 12:11 BP 115/71 11/11/20 12:11 Pulse Ox 97 11/11/20 12:11 Body Mass Index 27.9 Appearance: Alert. Oriented X3. No acute distress. Eyes: Pupils equal, round and reactive to light. ENT: Pharynx normal. Neck: Normal inspection. Neck supple. CVS: Normal heart rate and rhythm. Pulses normal. Respiratory: No respiratory distress. Breath sounds normal. Abdomen: Soft and very mild suprapubic ttp no rebound or guarding : normal appearance of scrotum, no mass felt ttp along R spermatic cord Skin: Skin warm and dry. Normal skin color. Normal skin turgor. Extremities: No lower extremity edema. No calf ttp Neuro: Oriented X 3. No motor deficit. No sensory deficit. Course Course Course Narrative: will treat as cystitis, pain control referral to urology [facility] - Male Genitourinary MDM Narrative Medical decision making narrative: 70 yo male with hx of back pain, DM, HLD, BPH here with suprapubic pain that is mild but c/o dysuria and testicular pain - at this time no flank pain no fevers, n/v, overall abdomen is benign he is tender over R epididymis - will obtain basic labs, US of scrotum to assess for inflammation, dispo per results and findings. Lab Data Result diagrams: 11/11/20 10:05 11/11/20 10:05 Labs: Lab Results 11/11/20 11/11/20 11/11/20 Range/Units 10:00 10:05 10:05 WBC 6.7 (4.8-10.8) X10*3/uL RBC 4.39 L (4.60-5.80) X10*6/uL Hgb 12.7 L (14.0-18.0) g/dl Hct 38.2 L (42-52) % MCV 87.0 (80-98) fL MCH 28.9 (27.0-33.0) pg MCHC 33.2 (31.0-36.0) g/dl RDW 13.7 (11.0-16.0) % Plt Count 159 L (160-400) X10*3/uL MPV 9.5 (9.4-12.4) fL Immature Gran % (Auto) 0.3 (0.0-0.4) % Neut % (Auto) 56.8 (45-73) % Lymph % (Auto) 32.2 (20-40) % [place] % (Auto) 9.9 (2-11) % Eos % (Auto) 0.4 (0-4) % Baso % (Auto) 0.4 (0-2) % Lymph # (Auto) 2.2 (1.2-4.9) X10*3/uL [place] # (Auto) 0.7 (0.1-1.2) X10*3/uL Eos # (Auto) 0.0 (0.0-0.4) X10*3/uL Baso # (Auto) 0.0 (0.0-0.2) X10*3/uL Abs Immat Gran (auto) 0.02 (0.00-0.03) X10*3/uL Absolute Neuts (auto) 3.8 (2.0-8.3) X10*3/uL Absolute Nucleated RBC 0.000 (0.0-0.012) X10*3/uL Nucleated RBC % (auto) 0.0 (0.0-0.2) /100WBC Sodium 134 L (135-145) mmol/L Potassium 4.3 (3.3-5.1) mmol/L Chloride 102 (96-108) mmol/L Carbon Dioxide 23 (22-29) mmol/L Anion Gap 13 (12-20) BUN 13 (9-16) mg/dL Creatinine 0.82 (0.5-1.4) mg/dL Estim Creat Clear Calc 84.9 Estimated GFR > 60 POC Glucose (60-115) mg/dL Random Glucose 202 H (60-115) mg/dL Calcium 9.3 (8.4-10.2) mg/dL Urine Color YELLOW Urine Appearance CLEAR Urine pH 6.5 (5.0-8.0) Ur Specific [place] 1.025 (1.005-1.025) Urine Protein 1+ H (NEG-TRACE) MG/DL Urine Glucose (UA) 250 H (NEG) MG/DL Urine Ketones NEG (NEG) MG/DL Urine Blood NEG (NEG) Urine Nitrite NEG (NEG) Ur Leukocyte Esterase NEG (NEG) Urine RBC 0-2 (0) /HPF Urine WBC 0-2 (0-4) /HPF Ur Squamous Epith Cells NONE /LPF Urine Bacteria NONE /LPF 11/11/20 Range/Units 12:07 WBC (4.8-10.8) X10*3/uL RBC (4.60-5.80) X10*6/uL Hgb (14.0-18.0) g/dl Hct (42-52) % MCV (80-98) fL MCH (27.0-33.0) pg MCHC (31.0-36.0) g/dl RDW (11.0-16.0) % Plt Count (160-400) X10*3/uL MPV (9.4-12.4) fL Immature Gran % (Auto) (0.0-0.4) % Neut % (Auto) (45-73) % Lymph % (Auto) (20-40) % [place] % (Auto) (2-11) % Eos % (Auto) (0-4) % Baso % (Auto) (0-2) % Lymph # (Auto) (1.2-4.9) X10*3/uL [place] # (Auto) (0.1-1.2) X10*3/uL Eos # (Auto) (0.0-0.4) X10*3/uL Baso # (Auto) (0.0-0.2) X10*3/uL Abs Immat Gran (auto) (0.00-0.03) X10*3/uL Absolute Neuts (auto) (2.0-8.3) X10*3/uL Absolute Nucleated RBC (0.0-0.012) X10*3/uL Nucleated RBC % (auto) (0.0-0.2) /100WBC Sodium (135-145) mmol/L Potassium (3.3-5.1) mmol/L Chloride (96-108) mmol/L Carbon Dioxide (22-29) mmol/L Anion Gap (12-20) BUN (9-16) mg/dL Creatinine (0.5-1.4) mg/dL Estim Creat Clear Calc Estimated GFR POC Glucose 149 H (60-115) mg/dL Random Glucose (60-115) mg/dL Calcium (8.4-10.2) mg/dL Urine Color Urine Appearance Urine pH (5.0-8.0) Ur Specific [place] (1.005-1.025) Urine Protein (NEG-TRACE) MG/DL Urine Glucose (UA) (NEG) MG/DL Urine Ketones (NEG) MG/DL Urine Blood (NEG) Urine Nitrite (NEG) Ur Leukocyte Esterase (NEG) Urine RBC (0) /HPF Urine WBC (0-4) /HPF Ur Squamous Epith Cells /LPF Urine Bacteria /LPF Discharge Plan Discharge Clinical Impression: Bilateral hydrocele, Cystitis Patient Disposition: Home, Self-Care Instructions: Hydrocele (ED), Urinary Tract Infection in Men (ED) Additional Instructions: return to ED for any worsening symptoms or concerns wear supportive underwear Prescriptions: New hydrocodone-acetaminophen 5-325 mg tablet 1 tab PO Q6H PRN (Reason: pain) Qty: 12 RF: 0 cefuroxime axetil 500 mg tablet 500 mg PO BID 7 Days Qty: 14 RF: 0 No Action tamsulosin 0.4 mg capsule 0.4 mg PO DAILY 90 Days Qty: 90 RF: 2 naproxen [Naprosyn] 500 mg tablet 500 mg PO BID Qty: 20 RF: 0 quetiapine [Seroquel] 100 mg tablet 100 mg PO BEDTIME RF: 0 lisinopril 10 mg tablet 10 mg PO DAILY RF: 0 metformin 1,000 mg tablet 1,000 mg PO BID RF: 0 gabapentin 300 mg capsule 300 mg PO TID RF: 0 rosuvastatin 10 mg tablet 10 mg PO DAILY RF: 0 clonazepam 1 mg tablet 1 mg PO BEDTIME RF: 0 insulin lispro [Humalog U-100 Insulin] 100 unit/mL solution 1 sliding scale dose subcut USEASDIRECTD RF: 0 Lantus U-100 Insulin 100 unit/mL solution 1 unit subcut DIRECTED RF: 0 Referrals: Christian Lopez MD [Physician] - 2 weeks Print Language: Polish
[2020-11-11 10:19] LABS: MANUAL DIFF FLAG NO
[2020-11-11 10:23] LABS: Basophils Percent Auto 0.4 % (0-2); Eosinophils Percent Auto 0.4 % (0-4); Hematocrit 38.2 % (42-52); Hemoglobin 12.7 g/dl (14.0-18.0); Imm Gran Abs Auto 0.02 X10*3/uL (0.00-0.03); Imm Gran Pct Auto 0.3 % (0.0-0.4); Lymphocytes Absolute Auto 2.2 X10*3/uL (1.2-4.9); Lymphocytes Percent Auto 32.2 % (20-40); Mean Corpuscular HGB Conc 33.2 g/dl (31.0-36.0); Mean Corpuscular Hemoglobin 28.9 pg (27.0-33.0); Mean Platelet Volume 9.5 fL (9.4-12.4); Monocytes Absolute Auto 0.7 X10*3/uL (0.1-1.2); Monocytes Percent Auto 9.9 % (2-11); Neutrophils Absolute Auto 3.8 X10*3/uL (2.0-8.3); Neutrophils Percent Auto 56.8 % (45-73); Platelet Count 159 X10*3/uL (160-400); Red Blood Count 4.39 X10*6/uL (4.60-5.80); Red Cell Distribution Width 13.7 % (11.0-16.0); White Blood Count 6.7 X10*3/uL (4.8-10.8)
[2020-11-11 10:26] LABS: Glucose Urine UA 250 MG/DL (NEG); Leukocyte Esterase Urine NEG (NEG); Nitrite Urine NEG (NEG); PH 6.5 (5.0-8.0); Specific Gravity - Urine 1.025 (1.005-1.025); UACC Culture Trigger NO; Urine Blood NEG (NEG); Urine Ketones NEG (NEG); Urine Protein 1+ MG/DL (NEG-TRACE)
[2020-11-11 10:33] LABS: Appearance Urine CLEAR; Color Urine YELLOW
[2020-11-11 10:50] LABS: RBC Urine 0-2 /HPF (0); WBC Urine 0-2 /HPF (0-4)
[2020-11-11 10:59] LABS: Anion Gap 13 (12-20); Blood Urea Nitrogen 13 mg/dL (9-16); Calcium 9.3 mg/dL (8.4-10.2); Carbon Dioxide 23 mmol/L (22-29); Chloride 102 mmol/L (96-108); Creatinine Clr Calc Pharmacy 84.9; Estimated Glomerular Filt Rate > 60; Glucose Random 202 mg/dL (60-115); Potassium 4.3 mmol/L (3.3-5.1); Sodium 134 mmol/L (135-145)
[2020-11-11] MEDS: HYDROcodone Bit/Acetam 5/325 TABLET 1 TAB PO (11:02)
[2020-11-11] MEDS: Ondansetron ODT 4 MG TAB.RAPDIS TRANSLINGU (11:02)
--- NOTE | 2020-11-11 12:08 | PC.NURSE ---
RN aware of POC 149
[2020-11-11 12:11] VITALS: BP 115/71; PULSE 72; RESP 16; TEMP 36.9; O2SAT 97
[2020-11-11 12:15] LABS: Glucose, Whole Blood 149 mg/dL (60-115)
--- NOTE | 2020-11-11 12:37 | PC.NURSE ---
PT HERE FOR TESTICULAR PAIN, LABS DONE, PT CURRENTLY IN ULTRASOUND. LUNCH ORDERED FOR RAO
== END 2020-11-11 14:03 | disposition home or self-care (01) ==
PROVIDERS: Emergency Provider Emergency Medicine; PCP Internal Medicine
DX: N43.3 Hydrocele, unspecified (principal); N30.90 Cystitis, unspecified without hematuria; E11.9 Type 2 diabetes mellitus without complications; I10 Essential (primary) hypertension; Z79.4 Long term (current) use of insulin; Z79.899 Other long term (current) drug therapy
CPT/HCPCS: 36415; 76870; 80048; 81001; 82947; 85025; 99284

== ENCOUNTER → 2020-12-05 14:30 | Outpatient (BNVA) | payer MEDICARE, MEDICAID, SELFPAY | PROVIDERS: PCP Internal Medicine; Visit Provider Urology | DX: N50.811 Right testicular pain (principal); N43.3 Hydrocele, unspecified; E11.9 Type 2 diabetes mellitus without complications; E78.00 Pure hypercholesterolemia, unspecified; I10 Essential (primary) hypertension | CPT/HCPCS: 99202 ==

== ENCOUNTER 2020-12-19 07:44 | Outpatient (REF) | payer MEDICARE, MEDICAID, SELFPAY ==
[2020-12-19 08:27] LABS: Alanine Aminotransferase 10 U/L (0-40); Albumin Level 4.1 g/dL (3.5-5.0); Alkaline Phosphatase 89 U/L (39-117); Anion Gap 12 (12-20); Aspartate Amino Transferase 16 U/L (5-37); Bilirubin Total 0.4 mg/dL (0.0-1.0); Blood Urea Nitrogen 13 mg/dL (9-16); Calcium 9.1 mg/dL (8.4-10.2); Carbon Dioxide 26 mmol/L (22-29); Chloride 102 mmol/L (96-108); Estimated Glomerular Filt Rate > 60; Glucose Random 288 mg/dL (60-115); Potassium 4.8 mmol/L (3.3-5.1); Sodium 135 mmol/L (135-145); Total Protein 6.9 g/dL (6.5-8.0)
[2020-12-19 08:47] LABS: Estimated Average Glucose 249 mg/dL; Hemoglobin A1c % 10.3 %
== END 2020-12-19 07:45 | disposition home or self-care (01) ==
LOC: HO.LAB 07:44
PROVIDERS: PCP Internal Medicine; Visit Provider Internal Medicine
DX: D17.9 Benign lipomatous neoplasm, unspecified (principal); E11.65 Type 2 diabetes mellitus with hyperglycemia; I10 Essential (primary) hypertension; R80.8 Other proteinuria
CPT/HCPCS: 36415; 80053; 83036

== ENCOUNTER 2021-01-13 05:52 | Day surgery (SDC) | payer MEDICARE, MEDICAID, SELFPAY ==
[2021-01-08 10:58] VITALS: BMI 27.9
[2021-01-08 11:22] VITALS: BMI 27.9
[2021-01-13] VITALS (10 sets, daily range): BP systolic 128–158; BP diastolic 69–89; PULSE 59–87; RESP 16–18; TEMP 36.4–36.7; O2SAT 94–99
[2021-01-13 06:33] LABS: Glucose, Whole Blood 217 mg/dL (60-115)
--- NOTE | 2021-01-13 06:52 | PC.NURSE ---
used [employer] [id number] [employer].
[2021-01-13] MEDS: Lactated Ringers 1,000 ML 100 ML IVCONT (06:55)
--- NOTE | 2021-01-13 07:13 | HO.ANESPROP2 ---
[facility] Active Problems Active Problems: All Active Problems (Updated 01/07/21 @ 15:11 by Kim Valadez RN) Trigger thumb of left hand (Acute) COVID-19 (Acute) COVID-19 (Acute) Hydrocele in adult (Acute) Past Medical History Medical History (Updated 01/07/21 @ 15:11 by Kim Valadez RN) Anxiety Arthritis Diabetes High cholesterol History of COVID-19 HTN (hypertension) Surgical History Surgical History (Updated 01/07/21 @ 15:14 by Kim Valadez RN) H/O colonoscopy History of esophagogastroduodenoscopy (EGD) Social History Social History Alcohol intake: never Patient Tobacco Use Status: Never used Tobacco Advance Directives Information Provided: Yes (informational brochure mailed w/pre-op instructions) Advance Directives on File: No Meds Allergies Allergy/AdvReac Type Severity Reaction Status Date / Time No Known Allergies Allergy Verified 12/05/20 14:47 [No Known Allergies*] Home Medications Medication Instructions Recorded Confirmed Last Taken Type clonazepam 1 mg tablet 1 mg PO BEDTIME 03/01/20 03/01/20 Unknown History insulin glargine 100 unit/mL 1 unit SUBCUT DIRECTED ml 03/01/20 03/01/20 Unknown History subcutaneous solution (Lantus U-100 Insulin) insulin lispro 100 unit/mL 1 sliding scale dose SUBCUT 03/01/20 03/01/20 Unknown History subcutaneous solution (Humalog USEASDIRECTD U-100 Insulin) metformin 1,000 mg tablet 1,000 mg PO BID 03/01/20 03/01/20 Unknown History quetiapine 100 mg tablet (Seroquel) 100 mg PO BEDTIME 03/01/20 03/01/20 Unknown History empagliflozin 25 mg tablet 25 mg PO DAILY 12/05/20 Unknown History (Jardiance) gabapentin 600 mg tablet 600 mg PO TID 12/05/20 Unknown History insulin aspart U-100 100 unit/mL 40 unit SUBCUT TID 12/05/20 Unknown History subcutaneous solution (Novolog U-100 Insulin aspart) insulin detemir U-100 100 unit/mL 55 unit SUBCUT BID 12/05/20 Unknown History subcutaneous solution (Levemir U-100 Insulin) insulin syringe-needle U-100 0.5 #10 ea 12/05/20 Unknown History mL 30 gauge x 1/2 (BD Insulin Syringe Ultra-Fine) lisinopril 5 mg tablet 5 mg PO DAILY 12/05/20 Unknown History rosuvastatin 40 mg tablet 40 mg PO BEDTIME 12/05/20 Unknown History sitagliptin 100 mg tablet (Januvia) 100 mg PO DAILY 12/05/20 Unknown History Exam Exam Date and Time: January 13, 202113 Height,Weight and Vital Signs: Height 5 ft 6 in Weight 78.471 kg Last Vital Signs Temp 97.8 F 01/13/21 06:32 Pulse 87 01/13/21 06:32 Resp 16 01/13/21 06:32 BP 128/69 01/13/21 06:32 Pulse Ox 97 01/13/21 06:32 Pertinent Lab Results Pertinent Lab Results: Laboratory Tests 01/13/21 06:25 POC Glucose 217 H Airway Mallampati Class: II TM Dist: >3cm Neck ROM: Full Denture: Upper and Lower
--- NOTE | 2021-01-13 08:16 | MHC.SHP ---
Pre-Procedural Eval Section A Date of Service: 01/13/21 Section B Chief Complaint: hydrocele Details of Present Illness: Hydrocele right sided hydrocele Relevant Social History: None Present Medications: see Short Stay Collaborative assessment Medical History: Significant History History of Previous Operations: No relevant previous surgery Allergies: Allergies Allergy/AdvReac Type Severity Reaction Status Date / Time No Known Allergies Allergy Verified 12/05/20 14:47 [No Known Allergies*] Review of Systems Sugical H&P ROS: Negative: Constitution, Cardiovascular, Respiratory, Neurological, Psychiatric, Hem-Onc, Allergic/Immunologic, Gastrointestinal, Genitourinary, Musculoskeletal, Integumentary, Endocrine and Eyes/Ears/Nose/Throat Exam Surgical H&P Exam: Normal: HEENT, Normal: Heart, Normal: Lungs, Normal: Extremities, Normal: Abdomen, Normal: Skin and Normal: Neurological Plan Diagnosis/Plan: Unchanged (Right-sided hydrocele repair) I have reviewed the history and physical and performed a pertinent physical examination on my patient. No changes have occurred unless specified.
--- NOTE | 2021-01-13 08:17 | W.PM.OPN ---
Operative Note Operative Note Date of Service: 01/13/21 Narrative: PreOperative Diagnosis: Right-sided hydrocele Post Operative Diagnosis: Right-sided hydrocele Procedure: Hydrocelectomy Surgeon: Dr Christian Lopez Anesthesia: General Indications for procedure: Right-sided hydrocele with persistent discomfort Procedure: After informed consent was verified the patient was brought to the operating room and placed in a supine position. Anesthesia was administered per protocol. Patient was appropriately shaved and genitals were prepped and draped in sterile fashion. Safety pause time-out was performed. Antibiotics being given. Local anesthetic was infiltrated under the skin in a horizontal fashion on the scrotum. Skin incision was made using a blade through the subdermal layer. The tunica around the testicle was elevated and dissected free from surrounding tissue. The testicle was delivered out of the scrotum and opened. Fluid was removed. The testicle sac was inverted and a bottle neck procedure was performed using a running 3-0 Vicryl suture. Skin edges of the tunica were cauterized carefully in order to try to minimize postprocedure hematoma. Small accessory appendices were removed from the head of epididymis. Were after excess skin had been trimmed in edges fully controlled the scrotum was placed back into a dependent portion of the scrotum. Overlying layer was closed with a running 3-0 Vicryl suture. Skin was closed with interrupted 4-0 chromic sutures. Patient tolerated procedure well was extubated in operating room transferred in stable condition to the recovery area Pathology: Hydrocele sac Drains: None
[2021-01-13] MEDS: fentaNYL citrate/PF 100 MCG/2 ML VIAL 50 MCG IVPUSH (08:34)
[2021-01-13] MEDS: traMADoL HCL 50 MG TABLET PO (08:48)
== END 2021-01-13 09:42 | disposition home or self-care (01) ==
PROVIDERS: PCP Internal Medicine; Visit Provider Urology
PROC: (CPT 55060; principal; 2021-01-13 07:30)
DX: N43.3 Hydrocele, unspecified (principal); I10 Essential (primary) hypertension; E11.9 Type 2 diabetes mellitus without complications; Z86.16 Personal history of COVID-19; Z79.4 Long term (current) use of insulin; Z79.899 Other long term (current) drug therapy
CPT/HCPCS: 55040; 82947; J0690; J1100; J2250; J2405; J3010

== ENCOUNTER 2021-01-16 11:29 | Emergency (ER) | payer MEDICARE, MEDICAID, SELFPAY ==
--- NOTE | ~2021-01-16 | XR_ITS ---
EXAMINATION: XR CHEST CLINICAL INFORMATION: SOB.. Recent testicular surgery on Wednesday. COMPARISON: None TECHNIQUE: Frontal view of the chest was obtained. FINDINGS: The lungs are well-expanded and clear. Heart size and pulmonary vascularity is normal. No gross bony abnormality seen. XR/XR chest 1V IMPRESSION: Well-expanded lungs without any acute process.
--- NOTE | 2021-01-16 11:34 | ECG_ITS ---
Test Reason : CHEST PAIN Blood Pressure : / mmHG Vent. Rate : 102 BPM Atrial Rate : 102 BPM P-R Int : 136 ms QRS Dur : 090 ms QT Int : 328 ms P-R-T Axes : 067 072 058 degrees QTc Int : 427 ms Sinus tachycardia Otherwise normal ECG When compared with ECG of 10-MAY-2020 16:59, No significant change was found Referred By: Generic ED Physician Electronically Signed By:LORENA THOMAS
[2021-01-16 11:53] LABS: MANUAL DIFF FLAG NO
[2021-01-16 11:54] VITALS: BP 98/57; PULSE 70; RESP 18; TEMP 37.1; O2SAT 98; BMI 28.6
[2021-01-16 11:56] LABS: Basophils Percent Auto 0.4 % (0-2); Eosinophils Percent Auto 0.4 % (0-4); Hematocrit 37.2 % (42-52); Hemoglobin 12.9 g/dl (14.0-18.0); Imm Gran Abs Auto 0.02 X10*3/uL (0.00-0.03); Imm Gran Pct Auto 0.2 % (0.0-0.4); Lymphocytes Absolute Auto 3.2 X10*3/uL (1.2-4.9); Lymphocytes Percent Auto 35.9 % (20-40); Mean Corpuscular HGB Conc 34.7 g/dl (31.0-36.0); Mean Corpuscular Hemoglobin 30.2 pg (27.0-33.0); Mean Corpuscular Volume 87.1 fL (80-98); Mean Platelet Volume 9.5 fL (9.4-12.4); Monocytes Absolute Auto 0.9 X10*3/uL (0.1-1.2); Monocytes Percent Auto 9.5 % (2-11); Neutrophils Absolute Auto 4.8 X10*3/uL (2.0-8.3); Neutrophils Percent Auto 53.6 % (45-73); Platelet Count 206 X10*3/uL (160-400); Red Blood Count 4.27 X10*6/uL (4.60-5.80); Red Cell Distribution Width 13.3 % (11.0-16.0); White Blood Count 8.9 X10*3/uL (4.8-10.8)
[2021-01-16 12:10] LABS: Alanine Aminotransferase 12 U/L (0-40); Albumin Level 4.2 g/dL (3.5-5.0); Alkaline Phosphatase 98 U/L (39-117); Anion Gap 12 (12-20); Aspartate Amino Transferase 19 U/L (5-37); Bilirubin Total < 0.2 mg/dL (0.0-1.0); Blood Urea Nitrogen 15 mg/dL (9-16); Calcium 9.3 mg/dL (8.4-10.2); Carbon Dioxide 24 mmol/L (22-29); Chloride 101 mmol/L (96-108); Creatinine Clr Calc Pharmacy 54.4; Estimated Glomerular Filt Rate 57; Glucose Random 239 mg/dL (60-115); Potassium 3.9 mmol/L (3.3-5.1); Sodium 133 mmol/L (135-145); Total Protein 7.2 g/dL (6.5-8.0)
[2021-01-16 12:20] LABS: Troponin-I High Sensitivity < 3.5 ng/L (<3.5-35.0)
[2021-01-16 12:26] VITALS: BP 105/64; PULSE 101; RESP 16; TEMP 37; O2SAT 98
--- NOTE | 2021-01-16 13:01 | ED_ITS ---
HPI - General Adult General Chief complaint: General Medical Stated complaint: chest pain dizzness Time Seen by Provider: 01/16/21 12:18 Source: patient and family History of Present Illness HPI narrative: This is a 70-year-old male who 3 days ago had surgery on a right- sided hydrocele, by Dr. Lopez. Patient went for a follow-up physical exam by his doctor this morning and was found to be hypotensive with a systolic blood pressure of 90. He also felt weak and a little short of breath. He was sweaty at the time. Patient feels a little short of breath. He denies any cough. He denies any chest pain. He denies any abdominal pain. His last bowel movement was this morning, though he had not had 1 since prior to the surgery. Does note some discomfort with urination. He denies any increased pain at the surgery site on his right scrotum. Denies any pain or swelling in his legs. Patient denies any chest pain at the time of the episode Per the daughter, the patient is on Bactrim 1 pill daily since the surgery. Related Data Home Medications Medication Instructions Recorded Confirmed clonazepam 1 mg tablet 1 mg PO BEDTIME 03/01/20 03/01/20 insulin glargine 100 unit/mL 1 unit SUBCUT DIRECTED ml 03/01/20 03/01/20 subcutaneous solution (Lantus U-100 Insulin) insulin lispro 100 unit/mL 1 sliding scale dose SUBCUT 03/01/20 03/01/20 subcutaneous solution (Humalog USEASDIRECTD U-100 Insulin) metformin 1,000 mg tablet 1,000 mg PO BID 03/01/20 03/01/20 quetiapine 100 mg tablet (Seroquel) 100 mg PO BEDTIME 03/01/20 03/01/20 empagliflozin 25 mg tablet 25 mg PO DAILY 12/05/20 (Jardiance) gabapentin 600 mg tablet 600 mg PO TID 12/05/20 insulin aspart U-100 100 unit/mL 40 unit SUBCUT TID 12/05/20 subcutaneous solution (Novolog U-100 Insulin aspart) insulin detemir U-100 100 unit/mL 55 unit SUBCUT BID 12/05/20 subcutaneous solution (Levemir U-100 Insulin) insulin syringe-needle U-100 0.5 #10 ea 12/05/20 mL 30 gauge x 1/2 (BD Insulin Syringe Ultra-Fine) lisinopril 5 mg tablet 5 mg PO DAILY 12/05/20 rosuvastatin 40 mg tablet 40 mg PO BEDTIME 12/05/20 sitagliptin 100 mg tablet (Januvia) 100 mg PO DAILY 12/05/20 Previous Rx's Medication Instructions Recorded tamsulosin 0.4 mg capsule 0.4 mg PO DAILY 90 Days #90 cap 08/22/20 naproxen 500 mg tablet (Naprosyn) 500 mg PO BID #20 tab 10/29/20 cefuroxime axetil 500 mg tablet 500 mg PO BID 7 Days #14 tab 11/11/20 hydrocodone 5 mg-acetaminophen 325 1 tab PO Q6H PRN #12 tab 11/11/20 mg tablet sulfamethoxazole 400 1 tab PO DAILY 5 Days #5 tab 01/13/21 mg-trimethoprim 80 mg tablet (Bactrim) tramadol 50 mg tablet 50 mg PO Q6H PRN #14 tab 01/13/21 Allergies Allergy/AdvReac Type Severity Reaction Status Date / Time No Known Allergies Allergy Verified 01/16/21 11:54 [No Known Allergies*] Review of Systems Review of Systems: Yes all other systems are reviewed and are negative Constitutional: Constitutional: Reports as per HPI and Denies fever(s) Eyes: Eyes: Reports as per HPI and Reports no additional eye complaints ENT: Reports system reviewed and no additional complaints, except as documented, Reports as per HPI, Denies nasal congestion, Denies nasal discharge and Denies sore throat Cardiovascular: Cardiovascular: Reports as per HPI, Denies chest pain and Reports dyspnea (Mild) Respiratory: Respiratory: Reports as per HPI, Denies cough and Reports dyspnea (Mild) Gastrointestinal: Gastrointestinal: Reports as per HPI, Denies abdominal pain, Denies diarrhea and Denies vomiting Genitourinary: Genitourinary: Reports as per HPI, Denies hematuria, Reports dysuria and Denies urinary frequency Comments: Pain at surgical site right scrotum Musculoskeletal: Musculoskeletal: Reports no additional musculoskeletal co mplaints and Denies numbness Integumentary/Breasts: Skin/Breast: Reports as per HPI and Denies rash Neurologic: Reports as per HPI, Denies focal weakness and Denies numbness Psychiatric: Psychiatric: Reports no additional psychiatric complaints and Reports as per HPI Endocrine: Endocrine: Reports no additional endocrine complaints and Reports as per HPI Hematologic/Lymphatic: Hematologic/Lymphatic: Reports no additional hematologic/lymphatic complaints, Reports as per HPI and Reports other (No peripheral edema) PENDING SALE TO [facility] Past Medical History Medical History (Updated 01/16/21 @ 14:51 by Lino Ramos MD) Anxiety Arthritis Diabetes High cholesterol History of COVID-19 HTN (hypertension) Surgical History H/O colonoscopy History of esophagogastroduodenoscopy (EGD) Social History Social History Alcohol intake: never Patient Tobacco Use Status: Former Tobacco user Advance Directives: Yes Advance Directives Information Provided: Yes Advance Directives on File: No Physical Exam Vital Signs: Vital Signs: Last Vital Signs Temp 98.6 F 01/16/21 12:26 Pulse 94 01/16/21 14:03 Resp 15 01/16/21 14:03 BP 114/60 01/16/21 14:03 Pulse Ox 99 01/16/21 14:03 Body Mass Index 28.6 : Penis: normal penis Scrotum: scrotum abnormal (Mild erythema to right lateral scrotum an area of recent procedure) Medical Decision Making MDM Narrative Medical decision making narrative: Patient was re-evaluated at approximately 14:00, felt better except for some feeling of heartburn. Patient's heart rate is improved, and he is generally feeling better. First troponin and EKG were unremarkable except for borderline tachycardia. Will repeat the troponin. Urinalysis showed 5-10 white cells and red cells per high-power field. Patient is uncircumcised and this may be a slightly contaminated specimen. Discussed case with Dr. Lopez who did not feel any change in management was necessary from a urologic perspective. Patient's 2nd troponin is negative. Patient overall feels better. Patient may have had a vasovagal episode, though he was initially tachycardic. No shortness of breath, EKG normal, do not suspect pulmonary embolism. Recent surgery was on the scrotum and was minimally invasive Lab Data Result diagrams: 01/16/21 11:45 01/16/21 11:45 Labs: Lab Results 01/16/21 01/16/21 01/16/21 Range/Units 11:45 11:45 11:45 WBC 8.9 (4.8-10.8) X10*3/uL RBC 4.27 L (4.60-5.80) X10*6/uL Hgb 12.9 L (14.0-18.0) g/dl Hct 37.2 L (42-52) % MCV 87.1 (80-98) fL MCH 30.2 (27.0-33.0) pg MCHC 34.7 (31.0-36.0) g/dl RDW 13.3 (11.0-16.0) % Plt Count 206 D (160-400) X10*3/uL MPV 9.5 (9.4-12.4) fL Immature Gran % (Auto) 0.2 (0.0-0.4) % Neut % (Auto) 53.6 (45-73) % Lymph % (Auto) 35.9 (20-40) % [place] % (Auto) 9.5 (2-11) % Eos % (Auto) 0.4 (0-4) % Baso % (Auto) 0.4 (0-2) % Lymph # (Auto) 3.2 (1.2-4.9) X10*3/uL [place] # (Auto) 0.9 (0.1-1.2) X10*3/uL Eos # (Auto) 0.0 (0.0-0.4) X10*3/uL Baso # (Auto) 0.0 (0.0-0.2) X10*3/uL Abs Immat Gran (auto) 0.02 (0.00-0.03) X10*3/uL Absolute Neuts (auto) 4.8 (2.0-8.3) X10*3/uL Absolute Nucleated RBC 0.000 (0.0-0.012) X10*3/uL Nucleated RBC % (auto) 0.0 (0.0-0.2) /100WBC Sodium 133 L (135-145) mmol/L Potassium 3.9 (3.3-5.1) mmol/L Chloride 101 (96-108) mmol/L Carbon Dioxide 24 (22-29) mmol/L Anion Gap 12 (12-20) BUN 15 (9-16) mg/dL Creatinine 1.25 (0.5-1.4) mg/dL Estim Creat Clear Calc 54.4 Estimated GFR 57 Random Glucose 239 H (60-115) mg/dL Calcium 9.3 (8.4-10.2) mg/dL Total Bilirubin < 0.2 (0.0-1.0) mg/dL AST 19 (5-37) U/L ALT 12 (0-40) U/L Alkaline Phosphatase 98 (39-117) U/L Troponin I High Sens < 3.5 (<3.5-35.0) ng/L Total Protein 7.2 (6.5-8.0) g/dL Albumin 4.2 (3.5-5.0) g/dL Urine Color Urine Appearance Urine pH (5.0-8.0) Ur Specific [place] (1.005-1.025) Urine Protein (NEG-TRACE) MG/DL Urine Glucose (UA) (NEG) MG/DL Urine Ketones (NEG) MG/DL Urine Blood (NEG) Urine Nitrite (NEG) Ur Leukocyte Esterase (NEG) Urine RBC (0) /HPF Urine WBC (0-4) /HPF Ur Squamous Epith Cells /LPF Urine Bacteria /LPF Urine Mucus /LPF 01/16/21 01/16/21 Range/Units 13:10 14:14 WBC (4.8-10.8) X10*3/uL RBC (4.60-5.80) X10*6/uL Hgb (14.0-18.0) g/dl Hct (42-52) % MCV (80-98) fL MCH (27.0-33.0) pg MCHC (31.0-36.0) g/dl RDW (11.0-16.0) % Plt Count (160-400) X10*3/uL MPV (9.4-12.4) fL Immature Gran % (Auto) (0.0-0.4) % Neut % (Auto) (45-73) % Lymph % (Auto) (20-40) % [place] % (Auto) (2-11) % Eos % (Auto) (0-4) % Baso % (Auto) (0-2) % Lymph # (Auto) (1.2-4.9) X10*3/uL [place] # (Auto) (0.1-1.2) X10*3/uL Eos # (Auto) (0.0-0.4) X10*3/uL Baso # (Auto) (0.0-0.2) X10*3/uL Abs Immat Gran (auto) (0.00-0.03) X10*3/uL Absolute Neuts (auto) (2.0-8.3) X10*3/uL Absolute Nucleated RBC (0.0-0.012) X10*3/uL Nucleated RBC % (auto) (0.0-0.2) /100WBC Sodium (135-145) mmol/L Potassium (3.3-5.1) mmol/L Chloride (96-108) mmol/L Carbon Dioxide (22-29) mmol/L Anion Gap (12-20) BUN (9-16) mg/dL Creatinine (0.5-1.4) mg/dL Estim Creat Clear Calc Estimated GFR Random Glucose (60-115) mg/dL Calcium (8.4-10.2) mg/dL Total Bilirubin (0.0-1.0) mg/dL AST (5-37) U/L ALT (0-40) U/L Alkaline Phosphatase (39-117) U/L Troponin I High Sens < 3.5 (<3.5-35.0) ng/L Total Protein (6.5-8.0) g/dL Albumin (3.5-5.0) g/dL Urine Color YELLOW Urine Appearance CLEAR Urine pH 7.0 (5.0-8.0) Ur Specific [place] 1.020 (1.005-1.025) Urine Protein 2+ H (NEG-TRACE) MG/DL Urine Glucose (UA) 250 H (NEG) MG/DL Urine Ketones NEG (NEG) MG/DL Urine Blood 1+ H (NEG) Urine Nitrite NEG (NEG) Ur Leukocyte Esterase NEG (NEG) Urine RBC 5-9 H (0) /HPF Urine WBC 5-9 H (0-4) /HPF Ur Squamous Epith Cells TRACE /LPF Urine Bacteria NONE /LPF Urine Mucus 1+ /LPF Imaging Data Chest x-ray: Radiologist's impression: FINDINGS: The lungs are well-expanded and clear. Heart size and pulmonary vascularity is normal. No gross bony abnormality seen. ECG Data Attestation: I personally reviewed and interpreted this ECG as follows: Interpretation: Sinus rhythm with a rate of 102. No ST elevation or depression. No T-wave changes. No ectopy. Normal QRS axis Discharge Plan Discharge Clinical Impression: Acute hypotension, Vaso vagal episode Patient Disposition: Home, Self-Care Instructions: Hypotension (ED), Near Syncope (ED) Additional Instructions: Drink plenty of fluids. Continue current medications. Return for any new or worsened symptoms such as shortness of breath, chest pain, fever, increased redness or swelling at the surgical site. Follow up with Dr. Lopez as instructed after surgery. Make sure to take your insulin and other medicines for diabetes to keep your sugar well controlled Prescriptions: No Action tamsulosin 0.4 mg capsule 0.4 mg PO DAILY 90 Days Qty: 90 RF: 2 naproxen [Naprosyn] 500 mg tablet 500 mg PO BID Qty: 20 RF: 0 sulfamethoxazole-trimethoprim [Bactrim] 400-80 mg tablet 1 tab PO DAILY 5 Days Qty: 5 RF: 0 tramadol 50 mg tablet 50 mg PO Q6H PRN (Reason: pain (scale score 4-6)) Qty: 14 RF: 0 hydrocodone-acetaminophen 5-325 mg tablet 1 tab PO Q6H PRN (Reason: pain) Qty: 12 RF: 0 cefuroxime axetil 500 mg tablet 500 mg PO BID 7 Days Qty: 14 RF: 0 quetiapine [Seroquel] 100 mg tablet 100 mg PO BEDTIME RF: 0 metformin 1,000 mg tablet 1,000 mg PO BID RF: 0 clonazepam 1 mg tablet 1 mg PO BEDTIME RF: 0 insulin lispro [Humalog U-100 Insulin] 100 unit/mL solution 1 sliding scale dose subcut USEASDIRECTD RF: 0 Lantus U-100 Insulin 100 unit/mL solution 1 unit subcut DIRECTED RF: 0 Interventions: ED Discharge Assessment Last Done: 01/16/21 15:11 Discharge Date/Time: 01/16/21 15:11
[2021-01-16] MEDS: 0.9 % Sodium Chloride 1,000 ML 999 ML IV (13:36)
[2021-01-16 13:37] VITALS: BP 106/59; PULSE 97; RESP 20; O2SAT 99
[2021-01-16 13:37] LABS: Appearance Urine CLEAR; Color Urine YELLOW; Glucose Urine UA 250 MG/DL (NEG); Leukocyte Esterase Urine NEG (NEG); Nitrite Urine NEG (NEG); UACC Culture Trigger NO; Urine Blood 1+ (NEG); Urine Ketones NEG (NEG); Urine Protein 2+ MG/DL (NEG-TRACE)
--- NOTE | 2021-01-16 13:42 | PC.NURSE ---
pt states he has heartburn. no chest no sob.
[2021-01-16 13:43] LABS: Mucus Urine 1+ /LPF; Squamous Epithelial Cell Urine TRACE /LPF; UACC CULT YES
[2021-01-16 14:03] VITALS: BP 114/60; PULSE 94; RESP 15; O2SAT 99
[2021-01-16] MEDS: Magnesium Hydrox/Alum Hydrox 30 ML ORAL.SUSP PO (14:46)
[2021-01-16 14:48] LABS: Troponin-I High Sensitivity < 3.5 ng/L (<3.5-35.0)
== END 2021-01-16 15:11 | disposition home or self-care (01) ==
PROVIDERS: Emergency Provider Emergency Medicine; PCP Internal Medicine
DX: I95.9 Hypotension, unspecified (principal); R55 Syncope and collapse; E11.9 Type 2 diabetes mellitus without complications; I10 Essential (primary) hypertension
CPT/HCPCS: 36415; 71045; 80053; 81001; 84484; 85025; 87086; 93005; 96360; 99284

== ENCOUNTER → 2021-01-29 14:48 | Outpatient (BNVA) | payer MEDICARE, MEDICAID, SELFPAY | PROVIDERS: PCP Internal Medicine; Visit Provider Urology ==

== ENCOUNTER → 2021-02-14 10:48 | Outpatient (BNVA) | payer MEDICARE, MEDICAID, SELFPAY | PROVIDERS: PCP Internal Medicine; Visit Provider Urology | DX: N43.3 Hydrocele, unspecified (principal) | CPT/HCPCS: 99212 ==

== ENCOUNTER 2021-06-12 07:44 | Outpatient (REF) | payer MEDICARE, MEDICAID, SELFPAY ==
[2021-06-12 08:34] LABS: Estimated Average Glucose 255 mg/dL; Hemoglobin A1c % 10.5 %
[2021-06-12 08:46] LABS: Alanine Aminotransferase 11 U/L (0-40); Albumin Level 4.2 g/dL (3.5-5.0); Alkaline Phosphatase 82 U/L (39-117); Anion Gap 12 (12-20); Aspartate Amino Transferase 17 U/L (5-37); Bilirubin Total 0.4 mg/dL (0.0-1.0); Blood Urea Nitrogen 15 mg/dL (9-16); Calcium 9.7 mg/dL (8.4-10.2); Carbon Dioxide 27 mmol/L (22-29); Chloride 103 mmol/L (96-108); Estimated Glomerular Filt Rate > 60; Glucose Random 229 mg/dL (60-115); Potassium 4.7 mmol/L (3.3-5.1); Sodium 137 mmol/L (135-145); Total Protein 7.4 g/dL (6.5-8.0)
== END 2021-06-12 07:45 | disposition home or self-care (01) ==
LOC: HO.LAB 07:44
PROVIDERS: PCP Internal Medicine; Visit Provider Internal Medicine
DX: E11.65 Type 2 diabetes mellitus with hyperglycemia (principal); E78.00 Pure hypercholesterolemia, unspecified; I10 Essential (primary) hypertension; R80.8 Other proteinuria
CPT/HCPCS: 36415; 80053; 83036

== ENCOUNTER 2021-07-21 09:24 | Outpatient (REF) | payer MEDICARE, MEDICAID, SELFPAY ==
[2021-07-21 09:48] LABS: MANUAL DIFF FLAG NO
[2021-07-21 10:02] LABS: Basophils Percent Auto 0.6 % (0-2); Eosinophils Absolute Auto 0.2 X10*3/uL (0.0-0.4); Eosinophils Percent Auto 3.1 % (0-4); Hematocrit 38.2 % (42.0-52.0); Imm Gran Abs Auto 0.02 X10*3/uL (0.00-0.03); Imm Gran Pct Auto 0.3 % (0.0-0.4); Lymphocytes Absolute Auto 2.6 X10*3/uL (1.2-4.9); Lymphocytes Percent Auto 40.6 % (20-40); Mean Corpuscular Hemoglobin 30.3 pg (27.0-33.0); Mean Platelet Volume 9.5 fL (9.4-12.4); Monocytes Absolute Auto 0.7 X10*3/uL (0.1-1.2); Monocytes Percent Auto 10.4 % (2-11); Neutrophils Absolute Auto 2.9 x10*3/uL (2.0-8.3); Platelet Count 188 X10*3/uL (160-400); Red Blood Count 4.29 X10*6/uL (4.60-5.80); Red Cell Distribution Width 13.7 % (11.0-16.0); White Blood Count 6.4 X10*3/uL (4.8-10.8)
[2021-07-21 10:19] LABS: Estimated Average Glucose 252 mg/dL; Hemoglobin A1c % 10.4 %
[2021-07-21 10:24] LABS: Alanine Aminotransferase 12 U/L (0-40); Albumin Level 4.2 g/dL (3.5-5.0); Alkaline Phosphatase 78 U/L (39-117); Anion Gap 13 (12-20); Aspartate Amino Transferase 18 U/L (5-37); Bilirubin Total 0.2 mg/dL (0.0-1.0); Blood Urea Nitrogen 14 mg/dL (9-16); Calcium 9.6 mg/dL (8.4-10.2); Carbon Dioxide 26 mmol/L (22-29); Chloride 101 mmol/L (96-108); Cholesterol 92 mg/dL; Estimated Glomerular Filt Rate > 60; Glucose Random 229 mg/dL (60-115); HDL Cholesterol 30 mg/dL; LDL Cholesterol Calculated 36 mg/dl; Potassium 4.7 mmol/L (3.3-5.1); Sodium 135 mmol/L (135-145); Total Protein 7.2 g/dL (6.5-8.0); Triglycerides 134 mg/dL
[2021-07-21 10:45] LABS: Erythrocyte Sedimentation Rate 25 MM/HR (0-15)
[2021-07-21 12:47] LABS: Creatinine Urine 81.76 mg/dL; Microalbum/Creatinine Ratio Ur 185.9 ug/mg cr
[2021-07-23 15:06] LABS: Anti Nuclear Antibody Screen NEGATIVE (NEGATIVE)
== END 2021-07-21 09:25 | disposition home or self-care (01) ==
LOC: HO.LAB 09:24
PROVIDERS: PCP Internal Medicine; Visit Provider Internal Medicine
DX: E11.65 Type 2 diabetes mellitus with hyperglycemia (principal); E78.00 Pure hypercholesterolemia, unspecified; I30.8 Other forms of acute pericarditis; R80.8 Other proteinuria
CPT/HCPCS: 36415; 80053; 80061; 82043; 83036; 85025; 85652; 86038; 86039

== ENCOUNTER 2021-07-21 09:50 | Emergency (ER) | payer MEDICARE, MEDICAID, SELFPAY ==
[2021-07-21 09:52] VITALS: BP 123/72; PULSE 88; RESP 20; TEMP 36.7; O2SAT 100; BMI 27.9
--- NOTE | 2021-07-21 10:10 | ED_ITS ---
HPI - General Adult General Chief complaint: General Medical Stated complaint: rash Time Seen by Provider: 07/21/21 10:10 Source: patient, family (daughter) and technical internship Mode of arrival: ambulatory Limitations: language barrier History of Present Illness HPI narrative: Patient is a 70 year old male presenting to the emergency department today with a rash. Patient states that for the last 2 months, he has had a rash across his whole body that has been itchy. Patient states that he has seen 2 dermatologists who have done biopsies and have determined that he has severe eczema. Patient states that he has been given multiple medications and creams but nothing seems to help. Patient states that he would like something that will let him sleep. Patient denies any dizziness, lightheadedness, abdominal pain, nausea, vomiting, fever, chills, blurry vision, double vision, loss of vision, chest pain, difficulty breathing, shortness of breath, back pain, night sweats, pain with urination, increased urinary frequency, increased urinary urgency, blood in his urine or stool, syncope or a near syncopal episode, recent trauma or falls, bowel incontinence, bladder incontinence, bowel retention, bladder retention, or any other complaints at this time. Patient states that he has an appointment at a manager freelance this afternoon. Onset (ago): month(s) (2) Severity: mild Relieving factors: none Exacerbating factors: none Associated symptoms: denies other symptoms Related Data Home Medications Medication Instructions Recorded Confirmed clonazepam 1 mg tablet 1 mg PO BEDTIME 03/01/20 03/01/20 insulin glargine 100 unit/mL 1 unit SUBCUT DIRECTED ml 03/01/20 03/01/20 subcutaneous solution (Lantus U-100 Insulin) insulin lispro 100 unit/mL 1 sliding scale dose SUBCUT 03/01/20 03/01/20 subcutaneous solution (Humalog USEASDIRECTD U-100 Insulin) metformin 1,000 mg tablet 1,000 mg PO BID 03/01/20 03/01/20 quetiapine 100 mg tablet (Seroquel) 100 mg PO BEDTIME 03/01/20 03/01/20 empagliflozin 25 mg tablet 25 mg PO DAILY 12/05/20 (Jardiance) gabapentin 600 mg tablet 600 mg PO TID 12/05/20 insulin aspart U-100 100 unit/mL 40 unit SUBCUT TID 12/05/20 subcutaneous solution (Novolog U-100 Insulin aspart) insulin detemir U-100 100 unit/mL 55 unit SUBCUT BID 12/05/20 subcutaneous solution (Levemir U-100 Insulin) insulin syringe-needle U-100 0.5 #10 ea 12/05/20 mL 30 gauge x 1/2 (BD Insulin Syringe Ultra-Fine) lisinopril 5 mg tablet 5 mg PO DAILY 12/05/20 rosuvastatin 40 mg tablet 40 mg PO BEDTIME 12/05/20 sitagliptin 100 mg tablet (Januvia) 100 mg PO DAILY 12/05/20 blood sugar diagnostic (FreeStyle #10 ea 02/14/21 Lite Strips) lancets 28 gauge (FreeStyle #100 ea 02/14/21 Lancets) Previous Rx's Medication Instructions Recorded tamsulosin 0.4 mg capsule 0.4 mg PO DAILY 90 Days #90 cap 08/22/20 naproxen 500 mg tablet (Naprosyn) 500 mg PO BID #20 tab 10/29/20 cefuroxime axetil 500 mg tablet 500 mg PO BID 7 Days #14 tab 11/11/20 hydrocodone 5 mg-acetaminophen 325 1 tab PO Q6H PRN #12 tab 11/11/20 mg tablet sulfamethoxazole 400 1 tab PO DAILY 5 Days #5 tab 01/13/21 mg-trimethoprim 80 mg tablet (Bactrim) tramadol 50 mg tablet 50 mg PO Q6H PRN #14 tab 01/17/21 Allergies Allergy/AdvReac Type Severity Reaction Status Date / Time No Known Allergies Allergy Verified 02/14/21 10:55 [No Known Allergies*] Review of Systems Constitutional: Constitutional: Reports no additional constitutional complaints, Denies chills, Denies fever(s) and Denies night sweats Eyes: Eyes: Reports no additional eye complaints, Denies blurry vision, Denies change in vision, Denies diplopia, Denies eye discharge, Denies loss of vision and Denies eye pain ENT: Denies dizziness Cardiovascular: Cardiovascular: Reports no additional cardiovascular complaints, Denies chest pain, Denies lightheadedness, Denies Loss of Consciousness and Denies dyspnea Respiratory: Respiratory: Reports no additional respiratory complaints and Denies dyspnea Gastrointestinal: Gastrointestinal: Reports no additional gastrointestinal complaints, Denies abdominal pain, Denies melena, Denies hematochezia, Denies change in bowel habits and Denies change in stool character Genitourinary: Genitourinary: Reports no additional male genitourinary complaints, Denies hematuria, Denies oliguria, Denies difficulty urinating, Denies dysuria, Denies urinary frequency, Denies urinary hesitancy, Denies urinary incontinence and Denies urinary urgency Musculoskeletal: Musculoskeletal: Reports no additional musculoskeletal complaints, Denies numbness and Denies tingling Integumentary/Breasts: Skin/Breast: Reports pruritus and Reports rash Neurologic: Denies dizziness, Denies loss of vision, Denies numbness and Denies tingling Psychiatric: Psychiatric: Reports no additional psychiatric complaints Endocrine: Endocrine: Reports no additional endocrine complaints Hematologic/Lymphatic: Hematologic/Lymphatic: Reports no additional hematologic/lymphatic complaints Allergic/Immunologic: Allergic/Immunologic: Reports no additional allergic/immunologic complaints PMFSH Past Medical History Attestation statement: The following information was validated with the patient. Source: old records reviewed Medical History Anxiety Arthritis Diabetes High cholesterol History of COVID-19 HTN (hypertension) Surgical History H/O colonoscopy History of esophagogastroduodenoscopy (EGD) Social History Social History Alcohol intake: never Patient Tobacco Use Status: Former Tobacco user Physical Exam ED Vital Signs: Vital Signs - 24 hr 07/21/21 09:52 Temperature 98.0 F Pulse Rate 88 Respiratory Rate 20 Blood Pressure 123/72 Pulse Oximetry 100 BMI result Body Mass Index 27.9 Const General: cooperative, no acute distress, alert and awake Nutritional Appearance: well nourished Orientation/consciousness: patient oriented x3 Limitations: no limitations HENMT Head: Yes normal to inspection and Yes atraumatic Ears: hearing grossly normal bilaterally and external ears normal General nose exam: Normal external nose present, no nasal discharge noted and no epistaxis Face and sinus: Yes normal facial exam, No abrasion and No laceration Mouth: Normal oral and palatal mucosa present, no drooling and no muffled voice Eyes General: appearance normal, both eyes and all related structures Periorbital: periorbital findings normal Eyelids: Yes eyelids normal Conjunctivae: conjunctivae normal Pupils: Equal, round and reactive pupils present EOM: EOMs intact bilaterally Neck Neck: Yes normal visual inspection, Yes full ROM and Yes no lymphadenopathy Chest Chest palpation & inspection: normal inspection of the chest Resp Effort & Inspection: normal respiratory effort and able to speak in complete sentences Auscultation: clear to auscultation bilaterally Cardio Rate: regular rate Rhythm: regular rhythm GI Inspection: Yes normal to inspection Skin Other: multiple patches of dry skin on the patients scalp, back, face, bilateral arms, bilateral legs, and torso. No sign of infection around any of the skin lesions. Neuro General: patient oriented x3 and moves all extremities Cranial nerves: Yes Equal, round and reactive pupils present Cognition (Neuro): normal cognition Motor exam (neuro): 5/5 motor strength present throughout Sensory Exam: Normal double simultaneous stimulation for sensation Coordination: [id number] test normal Extrem General: Yes normal to inspection, Yes full ROM and Yes capillary refill normal Psych Appearance: grossly normal Mental Status: mental status grossly normal Affect: normal affect Attitude: cooperative Thought process: Normal thought process present Thought content: Normal thought content present Insight: Good insight present (Psych) Medical Decision Making MDM Narrative Medical decision making narrative: Patient is a 70 year old male presenting to the emergency department today with itching and a rash. Patient's physical exam showed multiple areas of skin across the patient's body consistent with atopic dermatitis. I explained my physical exam findings to the patient and the patient's daughter. I answered all questions asked by the patient and the patient's daughter. I explained to the patient and his daughter that having and seeing that manager freelance is the correct course of action for this rash. I explained to the patient and his daughter that all I can offer them at this time is a dose of IM steroids to assist with the itching but that the manager freelance would have to be the one to provide them with a course of action for treatment of this chronic condition. Patient received IM Solu-medrol which he stated helped his itching significantly. I stressed the importance of the patient taking his medication as prescribed. I stressed the importance of the patient following up with his manager freelance and primary care provider. I stressed the importance of the patient returning to the emergency department immediately if his symptoms were to worsen or if he were to develop any dizziness, shortness of breath, difficulty breathing, chest pain, blurry vision, loss of vision, nausea, vomiting, abdominal pain, fever, chills, back pain, or any other complaints. Patient and the patient's daughter verbalized agreement and understanding with this treatment plan and discharge. Differential Diagnosis Differential Diagnosis: Atopic dermatitis, rash Medical Records Medical records reviewed: Yes I reviewed the patient's medical records. Discharge Plan Discharge Clinical Impression: Atopic dermatitis Patient Disposition: Home, Self-Care Instructions: Eczema (ED), Dermatitis (ED) Additional Instructions: Follow up with your primary care provider and manager freelance later today, as scheduled. Return to the emergency department immediately if your symptoms worsen or if you develop any dizziness, shortness of breath, difficulty breathing, chest pain, blurry vision, loss of vision, nausea, vomiting, abdominal pain, fever, chills, back pain, or any other complaints. Prescriptions: No Action tamsulosin 0.4 mg capsule 0.4 mg PO DAILY 90 Days Qty: 90 2RF tramadol 50 mg tablet 50 mg PO Q6H PRN (Reason: pain (scale score 4-6)) Qty: 14 0RF naproxen [Naprosyn] 500 mg tablet 500 mg PO BID Qty: 20 0RF sulfamethoxazole-trimethoprim [Bactrim] 400-80 mg tablet 1 tab PO DAILY 5 Days Qty: 5 0RF hydrocodone-acetaminophen 5-325 mg tablet 1 tab PO Q6H PRN (Reason: pain) Qty: 12 0RF cefuroxime axetil 500 mg tablet 500 mg PO BID 7 Days Qty: 14 0RF quetiapine [Seroquel] 100 mg tablet 100 mg PO BEDTIME 0RF metformin 1,000 mg tablet 1,000 mg PO BID 0RF clonazepam 1 mg tablet 1 mg PO BEDTIME 0RF Rx Instructions: administer 30 minutes before bedtime insulin lispro [Humalog U-100 Insulin] 100 unit/mL solution 1 sliding scale dose subcut USEASDIRECTD 0RF Lantus U-100 Insulin 100 unit/mL solution 1 unit subcut DIRECTED 0RF Referrals: Carine Chamberlain MD [Primary Care Provider] - (Follow up with your PCP. ) Print Language: [place]
[2021-07-21] MEDS: methylPREDNISolone Sod Succ 125 MG/2 ML VIAL 120 MG IM (10:34)
== END 2021-07-21 11:12 | disposition home or self-care (01) ==
LOC: HO.ED 10:55
PROVIDERS: Emergency Provider Emergency Medicine; PCP Internal Medicine
DX: L20.9 Atopic dermatitis, unspecified (principal); I10 Essential (primary) hypertension; E11.9 Type 2 diabetes mellitus without complications; E78.5 Hyperlipidemia, unspecified; Z79.4 Long term (current) use of insulin; Z79.02 Long term (current) use of antithrombotics/antiplatelets
CPT/HCPCS: 96372; 99283; 99284; J2930

== ENCOUNTER → 2021-12-17 10:43 | Outpatient (BNVA) | payer MEDICARE, MEDICAID, SELFPAY | PROVIDERS: PCP Internal Medicine; Visit Provider Orthopaedic Surgery | DX: M65.312 Trigger thumb, left thumb (principal) | CPT/HCPCS: 20550; 99202; J1100 ==

== ENCOUNTER 2022-02-02 10:42 | Outpatient (REF) | payer MEDICARE, MEDICAID, SELFPAY ==
[2022-02-02 11:04] LABS: MANUAL DIFF FLAG NO
[2022-02-02 11:43] LABS: Basophils Percent Auto 0.7 % (0-2); Eosinophils Absolute Auto 0.1 X10*3/uL (0.0-0.4); Eosinophils Percent Auto 1.7 % (0-4); Hematocrit 39.7 % (42.0-52.0); Hemoglobin 13.2 g/dl (14.0-18.0); Imm Gran Abs Auto 0.01 X10*3/uL (0.00-0.03); Imm Gran Pct Auto 0.2 % (0.0-0.4); Lymphocytes Absolute Auto 2.6 X10*3/uL (1.2-4.9); Lymphocytes Percent Auto 42.7 % (20-40); Mean Corpuscular HGB Conc 33.2 g/dl (31.0-36.0); Mean Corpuscular Hemoglobin 29.5 pg (27.0-33.0); Mean Corpuscular Volume 88.6 fL (80.0-98.0); Mean Platelet Volume 9.4 fL (9.4-12.4); Monocytes Absolute Auto 0.6 X10*3/uL (0.1-1.2); Monocytes Percent Auto 10.1 % (2-11); Neutrophils Absolute Auto 2.7 x10*3/uL (2.0-8.3); Neutrophils Percent Auto 44.6 % (45-73); Platelet Count 209 X10*3/uL (160-400); Red Blood Count 4.48 X10*6/uL (4.60-5.80); Red Cell Distribution Width 13.5 % (11.0-16.0)
[2022-02-02 11:45] LABS: Creatinine Urine 89.73 mg/dL; Microalbum/Creatinine Ratio Ur 203.9 ug/mg cr
[2022-02-02 11:53] LABS: Estimated Average Glucose 258 mg/dL; Hemoglobin A1c % 10.6 %
[2022-02-02 12:32] LABS: Prostate Specific Antigen Scr 0.75 ng/mL (<0.05-4.0)
[2022-02-02 12:33] LABS: Alanine Aminotransferase 11 U/L (0-40); Albumin Level 4.5 g/dL (3.5-5.0); Alkaline Phosphatase 87 U/L (39-117); Anion Gap 16 (12-20); Aspartate Amino Transferase 19 U/L (5-37); Bilirubin Total 0.4 mg/dL (0.0-1.0); Blood Urea Nitrogen 13 mg/dL (9-16); Calcium 9.7 mg/dL (8.4-10.2); Carbon Dioxide 25 mmol/L (22-29); Chloride 102 mmol/L (96-108); Cholesterol 96 mg/dL; Estimated Glomerular Filt Rate > 60; Glucose Random 92 mg/dL (60-115); HDL Cholesterol 34 mg/dL; LDL Cholesterol Calculated 39 mg/dl; Potassium 4.2 mmol/L (3.3-5.1); Sodium 139 mmol/L (135-145); Total Protein 7.6 g/dL (6.5-8.0); Triglycerides 119 mg/dL
[2022-02-02 12:52] LABS: Vitamin B12 416 pg/mL (200-900)
== END 2022-02-02 10:43 | disposition home or self-care (01) ==
LOC: HO.LAB 10:42
PROVIDERS: PCP Internal Medicine; Visit Provider Internal Medicine
DX: E11.65 Type 2 diabetes mellitus with hyperglycemia (principal); I10 Essential (primary) hypertension; E78.00 Pure hypercholesterolemia, unspecified; R80.8 Other proteinuria; Z12.5 Encounter for screening for malignant neoplasm of prostate
CPT/HCPCS: 36415; 80053; 80061; 82043; 82607; 83036; 84153; 85025

== ENCOUNTER 2022-03-29 17:23 | Emergency (ER) | payer MEDICARE, MEDICAID, SELFPAY ==
--- NOTE | ~2022-03-29 | US_ITS ---
EXAMINATION: US SCROTUM CLINICAL INFORMATION: Suprapubic and testicular pain bilaterally for 4 days. COMPARISON: Scrotal ultrasound 11/11/2020 TECHNIQUE: A sonogram of the scrotum was performed assessing barrera-scale appearance and color Doppler flow. Spectral Doppler analysis of the arterial and venous flow were performed in the testes bilaterally. FINDINGS: RIGHT: Right testicle measures 3.7 x 1.8 x 2.9 cm, volume 9.9 mL. No focal testicular parenchymal lesions are visualized. Spectral Doppler analysis of the arterial and venous flow is normal in the right testis. Right epididymal head was not visualized. No right hydrocele or varicocele is seen. Right epididymal Doppler flow is normal. LEFT: Left testicle measures 3.2 x 2.3 x 2.2 cm, volume 8.4 mL. No focal testicular parenchymal lesions are visualized. Spectral Doppler analysis of the arterial and venous flow is normal in the left testis. Left epididymal head is normal in size. No left varicocele is seen. Small hydrocele containing low-level echoes. Left epididymal Doppler flow is normal. Couple small anechoic epididymal head cysts are seen measuring 0.5 and 0.6 cm in size. US/US scrotum IMPRESSION: 1. No evidence of testicular torsion or epididymoorchitis. 2. Small left hydrocele. 3. Small left epididymal head cysts.
--- NOTE | ~2022-03-29 | US_ITS ---
EXAMINATION: US SCROTUM CLINICAL INFORMATION: Suprapubic and testicular pain bilaterally for 4 days. COMPARISON: Scrotal ultrasound 11/11/2020 TECHNIQUE: A sonogram of the scrotum was performed assessing barrera-scale appearance and color Doppler flow. Spectral Doppler analysis of the arterial and venous flow were performed in the testes bilaterally. FINDINGS: RIGHT: Right testicle measures 3.7 x 1.8 x 2.9 cm, volume 9.9 mL. No focal testicular parenchymal lesions are visualized. Spectral Doppler analysis of the arterial and venous flow is normal in the right testis. Right epididymal head was not visualized. No right hydrocele or varicocele is seen. Right epididymal Doppler flow is normal. LEFT: Left testicle measures 3.2 x 2.3 x 2.2 cm, volume 8.4 mL. No focal testicular parenchymal lesions are visualized. Spectral Doppler analysis of the arterial and venous flow is normal in the left testis. Left epididymal head is normal in size. No left varicocele is seen. Small hydrocele containing low-level echoes. Left epididymal Doppler flow is normal. Couple small anechoic epididymal head cysts are seen measuring 0.5 and 0.6 cm in size. US/US scrotum doppler IMPRESSION: 1. No evidence of testicular torsion or epididymoorchitis. 2. Small left hydrocele. 3. Small left epididymal head cysts.
--- NOTE | ~2022-03-29 | CT_ITS ---
EXAMINATION: CT ABDOMEN AND PELVIS WITHOUT CONTRAST CLINICAL INFORMATION: Pelvic pain COMPARISON: CT abdomen and pelvis 12/12/2018 TECHNIQUE: Multidetector volumetric imaging was performed from the superior aspect of the liver through the pubic symphysis. Sagittal and coronal reformatted images were obtained on the technologist's workstation. This CT examination was performed using dose optimization techniques as appropriate, variously including the following: *Automated exposure control *Adjustment of mA and/or kV according to patient size (this includes techniques or standardized protocols for targeted exams where dose is matched to indication/reason for exam; i.e. extremities or head) *Use of iterative reconstruction technique DLP: 458 mGy-cm FINDINGS: LUNG BASES: Minimal subpleural atelectasis or mild fibrosis in the dependent lower lobes. Lung bases otherwise clear. Three-vessel coronary artery vascular calcifications present LIVER, GALLBLADDER, AND BILIARY TREE: . The gallbladder is unremarkable with no evidence of radiopaque gallstones, gallbladder wall thickening, or obvious pericholecystic inflammatory changes. PANCREAS: Unremarkable. SPLEEN: Unremarkable. ADRENAL GLANDS: Unremarkable. KIDNEYS AND URETERS: The kidneys are normal in size, shape, and attenuation. No hydronephrosis, hydroureter, or calculi seen. No perinephric stranding. BLADDER: Prominently distended. No bladder wall thickening or calculi. Right aspect of urinary bladder protrudes into the proximal right inguinal canal. GASTROINTESTINAL TRACT: Colonic diverticulosis. No findings of acute diverticulitis. No dilated bowel loops. No bowel wall thickening. Normal appendix. No ascites or free air. ABDOMINAL WALL: No significant hernia is appreciated. LYMPH NODES: No lymphadenopathy. VASCULAR: Normal caliber abdominal aorta. Moderate vascular calcifications. PELVIC VISCERA: Prostate gland appears relatively normal in size. Seminal vesicles grossly unremarkable. No pelvic fluid collection seen. OSSEOUS STRUCTURES: No acute fracture or suspicious osseous lesion. CT/CT abdomen pelvis wo IV con IMPRESSION: 1. No acute intra-abdominal process identified. 2. Prominently distended urinary bladder. Correlate clinically with signs or symptoms of bladder outlet obstruction. 3. Colonic diverticulosis. No evidence of acute diverticulitis.
[2022-03-29 17:27] VITALS: BP 138/66; PULSE 93; RESP 18; TEMP 36.5; O2SAT 100; BMI 27.9
--- NOTE | 2022-03-29 17:30 | ED_ITS ---
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 He denies any testicular swelling. He denies any dysuria, urinary frequency or urgency. Denies any constipation or diarrhea. He has not had any nausea vomiting. Denies fever. Denies upper abdominal pain. Denies any chest pain shortness of breath <Lino Ramos MD - Last Filed: 03/30/22 00:49> Related Data Home medications: Home Medications Medication Instructions Recorded Confirmed clonazepam 1 mg tablet 1 mg PO BEDTIME 03/01/20 03/01/20 insulin glargine 100 unit/mL 1 unit subcut DIRECTED 03/01/20 03/01/20 subcutaneous solution (Lantus U-100 Insulin) insulin lispro 100 unit/mL 1 sliding scale dose subcut 03/01/20 03/01/20 subcutaneous solution (Humalog USEASDIRECTD U-100 Insulin) metformin 1,000 mg tablet 1,000 mg PO BID 03/01/20 03/01/20 quetiapine 100 mg tablet (Seroquel) 100 mg PO BEDTIME 03/01/20 03/01/20 empagliflozin 25 mg tablet 25 mg PO DAILY 12/05/20 (Jardiance) gabapentin 600 mg tablet 600 mg PO TID 12/05/20 insulin aspart U-100 100 unit/mL 40 unit subcut TID 12/05/20 subcutaneous solution (Novolog U-100 Insulin aspart) insulin detemir U-100 100 unit/mL 55 unit subcut BID 12/05/20 subcutaneous solution (Levemir U-100 Insulin) insulin syringe-needle U-100 0.5 #10 ea 12/05/20 mL 30 gauge x 1/2 (BD Insulin Syringe Ultra-Fine) lisinopril 5 mg tablet 5 mg PO DAILY 12/05/20 rosuvastatin 40 mg tablet 40 mg PO BEDTIME 12/05/20 sitagliptin phosphate 100 mg 100 mg PO DAILY 12/05/20 tablet (Januvia) blood sugar diagnostic (FreeStyle #10 ea 02/14/21 Lite Strips) lancets 28 gauge (FreeStyle #100 ea 02/14/21 Lancets) Previous Rx's Medication Instructions Recorded tamsulosin 0.4 mg capsule 0.4 mg PO DAILY 90 days #90 caps 08/22/20 naproxen 500 mg tablet (Naprosyn) 500 mg PO BID #20 tabs 10/29/20 cefuroxime axetil 500 mg tablet 500 mg PO BID 7 days #14 tabs 11/11/20 hydrocodone 5 mg-acetaminophen 325 1 tab PO Q6H PRN pain #12 tabs 11/11/20 mg tablet sulfamethoxazole 400 1 tab PO DAILY 5 days #5 tabs 01/13/21 mg-trimethoprim 80 mg tablet (Bactrim) tramadol 50 mg tablet 50 mg PO Q6H PRN pain (scale score 01/17/21 4-6) #14 tabs <CHARITO Mensah - Last Filed: 03/29/22 17:31> Allergies/Adverse reactions: Allergies Allergy/AdvReac Type Severity Reaction Status Date / Time No Known Allergies Allergy Verified 12/17/21 10:47 [No Known Allergies*] <CHARITO Mensah - Last Filed: 03/29/22 17:31> Review of Systems Review of Systems: Yes all other systems are reviewed and are negative <Lino Ramos MD - Last Filed: 03/30/22 00:49> Constitutional: Constitutional: Reports as per HPI and Denies fever(s) <Lino Ramos MD - Last Filed: 03/30/22 00:49> Eyes: Eyes: Reports as per HPI and Reports no additional eye complaints <Lino Ramos MD - Last Filed: 03/30/22 00:49> ENT: Reports system reviewed and no additional complaints, except as documented, Reports as per HPI, Denies nasal congestion, Denies nasal discharge and Denies sore throat <Lino Ramos MD - Last Filed: 03/30/22 00:49> Cardiovascular: Cardiovascular: Reports as per HPI, Denies chest pain and Denies dyspnea <Lino Ramos MD - Last Filed: 03/30/22 00:49> Respiratory: Respiratory: Reports as per HPI, Denies cough and Denies dyspnea <Lino Ramos MD - Last Filed: 03/30/22 00:49> Gastrointestinal: Gastrointestinal: Reports as per HPI, Denies abdominal pain, Denies diarrhea and Denies vomiting <Lino Ramos MD - Last Filed: 03/30/22 00:49> Genitourinary: Genitourinary: Reports as per HPI, Denies hematuria, Denies dysuria, Denies scrotal swelling, Reports testicular pain, Denies urinary frequency and Denies urinary urgency <Lino Ramos MD - Last Filed: 03/30/22 00:49> Musculoskeletal: Musculoskeletal: Reports no additional musculoskeletal complaints and Denies numbness <Lino Ramos MD - Last Filed: 03/30/22 00:49> Integumentary/Breasts: Skin/Breast: Reports as per HPI and Denies rash <Lino Ramos MD - Last Filed: 03/30/22 00:49> Neurologic: Reports as per HPI, Denies focal weakness and Denies numbness <Lino Ramos MD - Last Filed: 03/30/22 00:49> Psychiatric: Psychiatric: Reports no additional psychiatric complaints and Re ports as per HPI <Lino Ramos MD - Last Filed: 03/30/22 00:49> Endocrine: Endocrine: Reports no additional endocrine complaints and Reports as per HPI <Lino Ramos MD - Last Filed: 03/30/22 00:49> Hematologic/Lymphatic: Hematologic/Lymphatic: Reports no additional hematologic/lymphatic complaints, Reports as per HPI and Reports other (No peripheral edema) <Lino Ramos MD - Last Filed: 03/30/22 00:49> PMFSH Past Medical History Medical History: Medical History Anxiety Arthritis Diabetes High cholesterol History of COVID-19 HTN (hypertension) <CHARITO Mensah - Last Filed: 03/29/22 17:31> Surgical History: Surgical History H/O colonoscopy History of esophagogastroduodenoscopy (EGD) <CHARITO Mensah - Last Filed: 03/29/22 17:31> Social History Social History: Social History (Updated 12/17/21 @ 10:58 by PHILL Nunes) Alcohol intake: never Patient Tobacco Use Status: Former Tobacco user Advance Directives: No Advance Directives Information Provided: Yes Current occupational status: disabled 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 <CHARITO Mensah - Last Filed: 03/29/22 17:31> Physical Exam Vital Signs: Vital Signs: Last Vital Signs Temp 98.4 F 03/29/22 22:59 Pulse 79 03/29/22 22:59 Resp 16 03/29/22 22:59 BP 123/69 03/29/22 22:59 Pulse Ox 97 03/29/22 22:59 O2 Del Method 03/29/22 22:59 BMI result Body Mass Index 27.9 <CHARITO Mensah - Last Filed: 03/29/22 17:31> Vital Signs: Last Vital Signs Temp 98.4 F 03/29/22 22:59 Pulse 79 03/29/22 22:59 Resp 16 03/29/22 22:59 BP 123/69 03/29/22 22:59 Pulse Ox 97 03/29/22 22:59 O2 Del Method 03/29/22 22:59 BMI result Body Mass Index 27.9 <Lino Ramos MD - Last Filed: 03/30/22 00:49> Const: Other: PERRLA Conj [place] Mucous membranes moist Throat clear Neck supple Lungs CTA Heart RRR no murmurs rubs or gallops Abd soft, non distended, mild tenderness over bladder. Scrotum normal, lorenzo ticles nontender. No inguinal adenopathy or mass Extremities no pitting edema Neuro alert and oriented x 3, non focal <Lino Ramos MD - Last Filed: 03/30/22 00:49> Course Course Course Narrative: MYNOR17:30PM - 71yoM who is Romansh-speaking presenting to the ED with his daughter at bedside who is translating for him with complaints of suprapubic abdominal pain/bilateral testicular pain for the past 4 days. Denies any other symptoms related to this. Denies any thoughts of STDs. Plan: Patient is stable to go back to the waiting room. Ultrasound of testicles along with blood work and urine and gonorrhea chlamydia urine ordered at this time. <CHARITO Mensah - Last Filed: 03/29/22 17:31> Medications Administered Discontinued Medications Generic Name Dose Route Start Last Admin Trade Name Freq PRN Reason Stop Dose Admin Sodium Chloride 1,000 mls @ 999 mls/hr 03/29/22 21:00 03/29/22 22:58 Ns IV 03/29/22 22:00 Infused .Q1H1M [facility] Ketorolac Tromethamine 15 mg 03/29/22 20:53 03/29/22 21:04 Ketorolac Tromethamine 15 Mg/Ml Vial IVPUSH 03/29/22 20:54 15 mg ONCE ONE Administration <CHARITO Mensah - Last Filed: 03/29/22 17:31> Medications Administered Discontinued Medications Generic Name Dose Route Start Last Admin Trade Name Freq PRN Reason Stop Dose Admin Sodium Chloride 1,000 mls @ 999 mls/hr 03/29/22 21:00 03/29/22 22:58 Ns IV 03/29/22 22:00 Infused .Q1H1M [facility] Ketorolac Tromethamine 15 mg 03/29/22 20:53 03/29/22 21:04 Ketorolac Tromethamine 15 Mg/Ml Vial IVPUSH 03/29/22 20:54 15 mg ONCE ONE Administration <Lino Ramos MD - Last Filed: 03/30/22 00:49> Medical Decision Making Medical Decision Making MDM Narrative: Patient with pelvic pain for 4 days, midline with associated testicular pain. Scrotal/testicular exam is normal. Patient did have tenderness over the bladder. Rectal exam was done to evaluate the prostate and there was no prostatic tenderness, no concerning enlargement. If postvoid residual was checked on the patient and the patient had no urine in his bladder after voiding. CT scan of the abdomen pelvis was negative for any concerning findings. No ureterolith. Urinalysis showed a large amount of protein, also was positive for glucose, but there is no evidence of infection, no pyuria. CBC and chemistry panel unremarkable. Ultrasound of the scrotum was negative for anything concerning. Etiology of the patient's pain is unclear. No evidence of UTI, prostatitis, ureterolith, testicular torsion, epididymitis, orchitis, ureteral stone. <Lino Ramos MD - Last Filed: 03/30/22 00:49> Differential Diagnosis Differential Diagnoses: The differential diagnosis associated with the presentation includes <Lino Ramos MD - Last Filed: 03/30/22 00:49> UTI, prostatitis, ureterolith, testicular torsion, epididymitis, orchitis, ureteral stone. <Lino Ramos MD - Last Filed: 03/30/22 00:49> Lab Data MDM Lab Attestation statement: I reviewed the patient's lab results. <Lino Ramos MD - Last Filed: 03/30/22 00:49> Result Diagrams: : 03/29/22 18:06 03/29/22 18:06 <CHARITO Mensah - Last Filed: 03/29/22 17:31> Labs: Lab Results 03/29/22 03/29/22 03/29/22 Range/Units 18:06 18:06 18:06 WBC 6.4 (4.8-10.8) X10*3/uL RBC 4.30 L (4.60-5.80) X10*6/uL Hgb 12.7 L (14.0-18.0) g/dl Hct 38.1 L (42.0-52.0) % MCV 88.6 (80.0-98.0) fL MCH 29.5 (27.0-33.0) pg MCHC 33.3 (31.0-36.0) g/dl RDW 13.5 (11.0-16.0) % Plt Count 191 (160-400) X10*3/uL MPV 9.1 L (9.4-12.4) fL Immature Gran % (Auto) 0.2 (0.0-0.4) % Neut % (Auto) 46.4 (45-73) % Lymph % (Auto) 42.9 H (20-40) % [place] % (Auto) 9.1 (2-11) % Eos % (Auto) 0.9 (0-4) % Baso % (Auto) 0.5 (0-2) % Lymph # (Auto) 2.7 (1.2-4.9) X10*3/uL [place] # (Auto) 0.6 (0.1-1.2) X10*3/uL Eos # (Auto) 0.1 (0.0-0.4) X10*3/uL Baso # (Auto) 0.0 (0.0-0.2) X10*3/uL Abs Immat Gran (auto) 0.01 (0.00-0.03) X10*3/uL Absolute Neuts (auto) 3.0 (2.0-8.3) x10*3/uL Absolute Nucleated RBC 0.000 (0.0-0.012) X10*3/uL Nucleated RBC % (auto) 0.0 (0.0-0.2) /100WBC PT 13.3 H (10.0-13.1) SEC INR 1.2 H (0.9-1.1) Sodium 137 (135-145) mmol/L Potassium 4.2 (3.3-5.1) mmol/L Chloride 103 (96-108) mmol/L Carbon Dioxide 25 (22-29) mmol/L Anion Gap 13 (12-20) BUN 15 (9-16) mg/dL Creatinine 0.98 (0.5-1.4) mg/dL Estim Creat Clear Calc 70.1 Estimated GFR > 60 Random Glucose 97 (60-115) mg/dL Calcium 9.6 (8.4-10.2) mg/dL Magnesium 2.0 (1.6-2.6) mg/dL Total Bilirubin 0.3 (0.0-1.0) mg/dL AST 19 (5-37) U/L ALT 13 (0-40) U/L Alkaline Phosphatase 86 (39-117) U/L Total Protein 7.2 (6.5-8.0) g/dL Albumin 4.3 (3.5-5.0) g/dL Urine Color Urine Appearance Urine pH (5.0-9.0) Ur Specific [place] (1.005-1.025) Urine Protein (Neg-Trace) mg/dL Urine Glucose (UA) (Negative) mg/dL Urine Ketones (Negative) mg/dL Urine Blood (Negative) Urine Nitrite (Negative) Ur Leukocyte Esterase (Negative) Urine RBC (0-2) /HPF Urine WBC (0-5) /HPF Ur Squamous Epith Cells (0-2) /HPF Urine Bacteria (None Seen) Hyaline Casts (0-2) /LPF Granular Casts 03/29/22 Range/Units 18:06 WBC (4.8-10.8) X10*3/uL RBC (4.60-5.80) X10*6/uL Hgb (14.0-18.0) g/dl Hct (42.0-52.0) % MCV (80.0-98.0) fL MCH (27.0-33.0) pg MCHC (31.0-36.0) g/dl RDW (11.0-16.0) % Plt Count (160-400) X10*3/uL MPV (9.4-12.4) fL Immature Gran % (Auto) (0.0-0.4) % Neut % (Auto) (45-73) % Lymph % (Auto) (20-40) % [place] % (Auto) (2-11) % Eos % (Auto) (0-4) % Baso % (Auto) (0-2) % Lymph # (Auto) (1.2-4.9) X10*3/uL [place] # (Auto) (0.1-1.2) X10*3/uL Eos # (Auto) (0.0-0.4) X10*3/uL Baso # (Auto) (0.0-0.2) X10*3/uL Abs Immat Gran (auto) (0.00-0.03) X10*3/uL Absolute Neuts (auto) (2.0-8.3) x10*3/uL Absolute Nucleated RBC (0.0-0.012) X10*3/uL Nucleated RBC % (auto) (0.0-0.2) /100WBC PT (10.0-13.1) SEC INR (0.9-1.1) Sodium (135-145) mmol/L Potassium (3.3-5.1) mmol/L Chloride (96-108) mmol/L Carbon Dioxide (22-29) mmol/L Anion Gap (12-20) BUN (9-16) mg/dL Creatinine (0.5-1.4) mg/dL Estim Creat Clear Calc Estimated GFR Random Glucose (60-115) mg/dL Calcium (8.4-10.2) mg/dL Magnesium (1.6-2.6) mg/dL Total Bilirubin (0.0-1.0) mg/dL AST (5-37) U/L ALT (0-40) U/L Alkaline Phosphatase (39-117) U/L Total Protein (6.5-8.0) g/dL Albumin (3.5-5.0) g/dL Urine Color Dark Yellow Urine Appearance Clear Urine pH 6.0 (5.0-9.0) Ur Specific [place] >= 1.030 H (1.005-1.025) Urine Protein >=1000 (4+) H (Neg-Trace) mg/dL Urine Glucose (UA) 100 H (Negative) mg/dL Urine Ketones Trace (Negative) mg/dL Urine Blood Moderate (2+) H (Negative) Urine Nitrite Negative (Negative) Ur Leukocyte Esterase Negative (Negative) Urine RBC 0-2 (0-2) /HPF Urine WBC 0-5 (0-5) /HPF Ur Squamous Epith Cells 0-2 (0-2) /HPF Urine Bacteria None Seen (None Seen) Hyaline Casts 6-10 (0-2) /LPF Granular Casts Present <CHARITO Mensah - Last Filed: 03/29/22 17:31> Lab Results 03/29/22 03/29/22 03/29/22 Range/Units 18:06 18:06 18:06 WBC 6.4 (4.8-10.8) X10*3/uL RBC 4.30 L (4.60-5.80) X10*6/uL Hgb 12.7 L (14.0-18.0) g/dl Hct 38.1 L (42.0-52.0) % MCV 88.6 (80.0-98.0) fL MCH 29.5 (27.0-33.0) pg MCHC 33.3 (31.0-36.0) g/dl RDW 13.5 (11.0-16.0) % Plt Count 191 (160-400) X10*3/uL MPV 9.1 L (9.4-12.4) fL Immature Gran % (Auto) 0.2 (0.0-0.4) % Neut % (Auto) 46.4 (45-73) % Lymph % (Auto) 42.9 H (20-40) % [place] % (Auto) 9.1 (2-11) % Eos % (Auto) 0.9 (0-4) % Baso % (Auto) 0.5 (0-2) % Lymph # (Auto) 2.7 (1.2-4.9) X10*3/uL [place] # (Auto) 0.6 (0.1-1.2) X10*3/uL Eos # (Auto) 0.1 (0.0-0.4) X10*3/uL Baso # (Auto) 0.0 (0.0-0.2) X10*3/uL Abs Immat Gran (auto) 0.01 (0.00-0.03) X10*3/uL Absolute Neuts (auto) 3.0 (2.0-8.3) x10*3/uL Absolute Nucleated RBC 0.000 (0.0-0.012) X10*3/uL Nucleated RBC % (auto) 0.0 (0.0-0.2) /100WBC PT 13.3 H (10.0-13.1) SEC INR 1.2 H (0.9-1.1) Sodium 137 (135-145) mmol/L Potassium 4.2 (3.3-5.1) mmol/L Chloride 103 (96-108) mmol/L Carbon Dioxide 25 (22-29) mmol/L Anion Gap 13 (12-20) BUN 15 (9-16) mg/dL Creatinine 0.98 (0.5-1.4) mg/dL Estim Creat Clear Calc 70.1 Estimated GFR > 60 Random Glucose 97 (60-115) mg/dL Calcium 9.6 (8.4-10.2) mg/dL Magnesium 2.0 (1.6-2.6) mg/dL Total Bilirubin 0.3 (0.0-1.0) mg/dL AST 19 (5-37) U/L ALT 13 (0-40) U/L Alkaline Phosphatase 86 (39-117) U/L Total Protein 7.2 (6.5-8.0) g/dL Albumin 4.3 (3.5-5.0) g/dL Urine Color Urine Appearance Urine pH (5.0-9.0) Ur Specific [place] (1.005-1.025) Urine Protein (Neg-Trace) mg/dL Urine Glucose (UA) (Negative) mg/dL Urine Ketones (Negative) mg/dL Urine Blood (Negative) Urine Nitrite (Negative) Ur Leukocyte Esterase (Negative) Urine RBC (0-2) /HPF Urine WBC (0-5) /HPF Ur Squamous Epith Cells (0-2) /HPF Urine Bacteria (None Seen) Hyaline Casts (0-2) /LPF Granular Casts 03/29/22 Range/Units 18:06 WBC (4.8-10.8) X10*3/uL RBC (4.60-5.80) X10*6/uL Hgb (14.0-18.0) g/dl Hct (42.0-52.0) % MCV (80.0-98.0) fL MCH (27.0-33.0) pg MCHC (31.0-36.0) g/dl RDW (11.0-16.0) % Plt Count (160-400) X10*3/uL MPV (9.4-12.4) fL Immature Gran % (Auto) (0.0-0.4) % Neut % (Auto) (45-73) % Lymph % (Auto) (20-40) % [place] % (Auto) (2-11) % Eos % (Auto) (0-4) % Baso % (Auto) (0-2) % Lymph # (Auto) (1.2-4.9) X10*3/uL [place] # (Auto) (0.1-1.2) X10*3/uL Eos # (Auto) (0.0-0.4) X10*3/uL Baso # (Auto) (0.0-0.2) X10*3/uL Abs Immat Gran (auto) (0.00-0.03) X10*3/uL Absolute Neuts (auto) (2.0-8.3) x10*3/uL Absolute Nucleated RBC (0.0-0.012) X10*3/uL Nucleated RBC % (auto) (0.0-0.2) /100WBC PT (10.0-13.1) SEC INR (0.9-1.1) Sodium (135-145) mmol/L Potassium (3.3-5.1) mmol/L Chloride (96-108) mmol/L Carbon Dioxide (22-29) mmol/L Anion Gap (12-20) BUN (9-16) mg/dL Creatinine (0.5-1.4) mg/dL Estim Creat Clear Calc Estimated GFR Random Glucose (60-115) mg/dL Calcium (8.4-10.2) mg/dL Magnesium (1.6-2.6) mg/dL Total Bilirubin (0.0-1.0) mg/dL AST (5-37) U/L ALT (0-40) U/L Alkaline Phosphatase (39-117) U/L Total Protein (6.5-8.0) g/dL Albumin (3.5-5.0) g/dL Urine Color Dark Yellow Urine Appearance Clear Urine pH 6.0 (5.0-9.0) Ur Specific [place] >= 1.030 H (1.005-1.025) Urine Protein >=1000 (4+) H (Neg-Trace) mg/dL Urine Glucose (UA) 100 H (Negative) mg/dL Urine Ketones Trace (Negative) mg/dL Urine Blood Moderate (2+) H (Negative) Urine Nitrite Negative (Negative) Ur Leukocyte Esterase Negative (Negative) Urine RBC 0-2 (0-2) /HPF Urine WBC 0-5 (0-5) /HPF Ur Squamous Epith Cells 0-2 (0-2) /HPF Urine Bacteria None Seen (None Seen) Hyaline Casts 6-10 (0-2) /LPF Granular Casts Present <Lino Ramos MD - Last Filed: 03/30/22 00:49> Radiology Impression Discussion of test interpretation with radiology: I have reviewed the radiologist's reading. <Lino Ramos MD - Last Filed: 03/30/22 00:49> Radiologist Impression: IMPRESSION: 1.? No evidence of testicular torsion or epididymoorchitis. 2.? Small left hydrocele. 3.? Small left epididymal head cysts. CT abdomen pelvis without contrast IMPRESSION: 1.? No acute intra-abdominal process identified. 2.? Prominently distended urinary bladder. Correlate clinically with signs or symptoms of bladder outlet obstruction. 3.? Colonic diverticulosis. No evidence of acute diverticulitis. <Lino Ramos MD - Last Filed: 03/30/22 00:49> Prescription Management I considered prescription management with: Pain Medication and Antibiotic <Lino Ramos MD - Last Filed: 03/30/22 00:49> Chronic Conditions Patient?s care impacted by: Diabetes <Lino Ramos MD - Last Filed: 03/30/22 00:49> Discharge Plan Discharge Clinical Impression: Male pelvic pain, Pain in both testicles <CHARITO Mensah - Last Filed: 03/29/22 17:31> Patient Disposition: Home, Self-Care <CHARITO Mensah - Last Filed: 03/29/22 17:31> Instructions: Testicle Pain (ED), Pelvic Pain (ED) <CHARITO Mensah - Last Filed: 03/29/22 17:31> Additional Instructions: Follow-up with urology. Use acetaminophen and or ibuprofen for pain. Return for any new or worsened symptoms. <CHARITO Mensah - Last Filed: 03/29/22 17:31> Prescriptions: No Action tamsulosin 0.4 mg capsule 0.4 mg PO DAILY 90 Days Qty: 90 2RF tramadol 50 mg tablet 50 mg PO Q6H PRN (Reason: pain (scale score 4-6)) Qty: 14 0RF naproxen [Naprosyn] 500 mg tablet 500 mg PO BID Qty: 20 0RF sulfamethoxazole-trimethoprim [Bactrim] 400-80 mg tablet 1 tab PO DAILY 5 Days Qty: 5 0RF hydrocodone-acetaminophen 5-325 mg tablet 1 tab PO Q6H PRN (Reason: pain) Qty: 12 0RF cefuroxime axetil 500 mg tablet 500 mg PO BID 7 Days Qty: 14 0RF quetiapine [Seroquel] 100 mg tablet 100 mg PO BEDTIME metformin 1,000 mg tablet 1,000 mg PO BID clonazepam 1 mg tablet 1 mg PO BEDTIME Rx Instructions: administer 30 minutes before bedtime insulin lispro [Humalog U-100 Insulin] 100 unit/mL solution 1 sliding scale dose subcut USEASDIRECTD Lantus U-100 Insulin 100 unit/mL solution 1 unit subcut DIRECTED (DME) insulin syringe-needle U-100 [BD Insulin Syringe Ultra-Fine] 0.5 mL 30 gauge x 1/2 syringe See Rx Instructions .ROUTE .MEDSUPPLY Qty: 10 Rx Instructions: As directed insulin aspart U-100 [Novolog U-100 Insulin aspart] 100 unit/mL solution 40 unit subcut TID Jardiance 25 mg tablet 25 mg PO DAILY Januvia 100 mg tablet 100 mg PO DAILY gabapentin 600 mg tablet 600 mg PO TID Levemir U-100 Insulin 100 unit/mL solution 55 unit subcut BID rosuvastatin 40 mg tablet 40 mg PO BEDTIME lisinopril 5 mg tablet 5 mg PO DAILY (DME) lancets [FreeStyle Lancets] 28 gauge misc See Rx Instructions topical TID Qty: 100 Rx Instructions: As directed (DME) FreeStyle Lite Strips Strip See Rx Instructions Not Applicable TID Qty: 10 Rx Instructions: As directed <CHARITO Mensah - Last Filed: 03/29/22 17:31> Referrals: Christian Lopez MD [Physician] - <CHARITO Mensah - Last Filed: 03/29/22 17:31> Interventions: ED Discharge Assessment Last Done: 03/30/22 00:13 <CHARITO Mensah - Last Filed: 03/29/22 17:31> Discharge Date/Time: 03/30/22 00:14 <CHARITO Mensah - Last Filed: 03/29/22 17:31>
[2022-03-29 18:11] LABS: MANUAL DIFF FLAG NO
[2022-03-29 18:12] LABS: Basophils Percent Auto 0.5 % (0-2); Eosinophils Absolute Auto 0.1 X10*3/uL (0.0-0.4); Eosinophils Percent Auto 0.9 % (0-4); Hematocrit 38.1 % (42.0-52.0); Hemoglobin 12.7 g/dl (14.0-18.0); Imm Gran Abs Auto 0.01 X10*3/uL (0.00-0.03); Imm Gran Pct Auto 0.2 % (0.0-0.4); Lymphocytes Absolute Auto 2.7 X10*3/uL (1.2-4.9); Lymphocytes Percent Auto 42.9 % (20-40); Mean Corpuscular HGB Conc 33.3 g/dl (31.0-36.0); Mean Corpuscular Hemoglobin 29.5 pg (27.0-33.0); Mean Corpuscular Volume 88.6 fL (80.0-98.0); Mean Platelet Volume 9.1 fL (9.4-12.4); Monocytes Absolute Auto 0.6 X10*3/uL (0.1-1.2); Monocytes Percent Auto 9.1 % (2-11); Neutrophils Percent Auto 46.4 % (45-73); Platelet Count 191 X10*3/uL (160-400); Red Cell Distribution Width 13.5 % (11.0-16.0); White Blood Count 6.4 X10*3/uL (4.8-10.8)
[2022-03-29 18:14] LABS: Appearance Urine Clear; Color Urine Dark Yellow; Glucose Urine UA 100 mg/dL (Negative); Leukocyte Esterase Urine Negative (Negative); Nitrite Urine Negative (Negative); Specific Gravity - Urine >= 1.030 (1.005-1.025); UMIC TRIGGER UACC YES; Urine Blood Moderate (2+) (Negative); Urine Ketones Trace mg/dL (Negative); Urine Protein >=1000 (4+) mg/dL (Neg-Trace)
[2022-03-29 18:19] LABS: INTERNATIONAL NORM RATIO 1.2 (0.9-1.1); Prothrombin Time 13.3 SEC (10.0-13.1)
[2022-03-29 18:22] LABS: Bacteria Urine None Seen (None Seen); Granular Casts Urine Present; RBC Urine 0-2 /HPF (0-2); Squamous Epithelial Cell Urine 0-2 /HPF (0-2); WBC Urine 0-5 /HPF (0-5)
[2022-03-29 18:27] LABS: Alanine Aminotransferase 13 U/L (0-40); Albumin Level 4.3 g/dL (3.5-5.0); Alkaline Phosphatase 86 U/L (39-117); Anion Gap 13 (12-20); Aspartate Amino Transferase 19 U/L (5-37); Bilirubin Total 0.3 mg/dL (0.0-1.0); Blood Urea Nitrogen 15 mg/dL (9-16); Calcium 9.6 mg/dL (8.4-10.2); Carbon Dioxide 25 mmol/L (22-29); Chloride 103 mmol/L (96-108); Creatinine Clr Calc Pharmacy 70.1; Estimated Glomerular Filt Rate > 60; Glucose Random 97 mg/dL (60-115); Potassium 4.2 mmol/L (3.3-5.1); Sodium 137 mmol/L (135-145); Total Protein 7.2 g/dL (6.5-8.0)
[2022-03-29 20:06] VITALS: BP 128/68; PULSE 99; RESP 18; TEMP 36.6; O2SAT 99
[2022-03-29] MEDS: Ketorolac Tromethamine 15 MG/ML VIAL IVPUSH (21:04)
[2022-03-29] MEDS: 0.9 % Sodium Chloride 1,000 ML 999 ML IV (21:06)
[2022-03-29 22:59] VITALS: BP 123/69; PULSE 79; RESP 16; TEMP 36.9; O2SAT 97
[2022-03-30 05:14] LABS: CT PCR NOT DETECTED (Not Detect.); NG PCR NOT DETECTED (Not Detect.)
== END 2022-03-30 00:14 | disposition home or self-care (01) ==
PROVIDERS: Physician Assistant Medical; Emergency Provider Emergency Medicine; PCP Internal Medicine
DX: R10.2 Pelvic and perineal pain (principal); N50.812 Left testicular pain; N50.811 Right testicular pain; R60.0 Localized edema; E11.9 Type 2 diabetes mellitus without complications; Z20.822 Contact with and (suspected) exposure to COVID-19; Z79.899 Other long term (current) drug therapy; Z79.4 Long term (current) use of insulin
CPT/HCPCS: 36415; 74176; 76870; 80053; 81001; 83735; 85025; 85610; 87491; 87591; 93975; 99284; J1885

== ENCOUNTER 2022-07-08 10:03 | Outpatient (REF) | payer MEDICARE, MEDICAID, SELFPAY ==
[2022-07-08 10:57] LABS: Estimated Average Glucose 252 mg/dL; Hemoglobin A1c % 10.4 %
[2022-07-08 11:27] LABS: Alanine Aminotransferase 12 U/L (0-40); Albumin Level 4.1 g/dL (3.5-5.0); Alkaline Phosphatase 90 U/L (39-117); Anion Gap 11 (12-20); Aspartate Amino Transferase 17 U/L (5-37); Bilirubin Total 0.5 mg/dL (0.0-1.0); Blood Urea Nitrogen 13 mg/dL (9-16); Calcium 9.5 mg/dL (8.4-10.2); Carbon Dioxide 29 mmol/L (22-29); Chloride 102 mmol/L (96-108); Estimated Glomerular Filt Rate > 60; Glucose Random 200 mg/dL (60-115); Potassium 5.1 mmol/L (3.3-5.1); Sodium 137 mmol/L (135-145)
== END 2022-07-08 10:04 | disposition home or self-care (01) ==
LOC: HO.LAB 10:03
PROVIDERS: PCP Internal Medicine; Visit Provider Internal Medicine
DX: E11.65 Type 2 diabetes mellitus with hyperglycemia (principal); E78.00 Pure hypercholesterolemia, unspecified; I10 Essential (primary) hypertension; R80.8 Other proteinuria
CPT/HCPCS: 36415; 80053; 83036

== ENCOUNTER 2022-09-03 16:14 | Outpatient (REF) | payer MEDICARE, MEDICAID, SELFPAY ==
[2022-09-03 17:07] LABS: Estimated Average Glucose 220 mg/dL; Hemoglobin A1c % 9.3 %
[2022-09-03 17:50] LABS: Alanine Aminotransferase 10 U/L (0-40); Albumin Level 4.4 g/dL (3.5-5.0); Alkaline Phosphatase 91 U/L (39-117); Anion Gap 14 (12-20); Aspartate Amino Transferase 16 U/L (5-37); Bilirubin Total 0.5 mg/dL (0.0-1.0); Blood Urea Nitrogen 15 mg/dL (9-16); Calcium 9.4 mg/dL (8.4-10.2); Carbon Dioxide 27 mmol/L (22-29); Chloride 103 mmol/L (96-108); Estimated Glomerular Filt Rate > 60; Glucose Random 69 mg/dL (60-115); Potassium 4.1 mmol/L (3.3-5.1); Sodium 140 mmol/L (135-145); Total Protein 7.6 g/dL (6.5-8.0)
== END 2022-09-03 16:15 | disposition home or self-care (01) ==
LOC: HO.LAB 16:14
PROVIDERS: PCP Internal Medicine; Visit Provider Internal Medicine
DX: E11.65 Type 2 diabetes mellitus with hyperglycemia (principal); H81.11 Benign paroxysmal vertigo, right ear; I10 Essential (primary) hypertension; R80.8 Other proteinuria
CPT/HCPCS: 36415; 80053; 83036

== ENCOUNTER 2022-09-04 15:09 | Observation (INO) | payer MEDICARE, MEDICAID, SELFPAY ==
--- NOTE | ~2022-09-04 | CT_ITS ---
EXAMINATION: CT ABDOMEN AND PELVIS WITH CONTRAST CLINICAL INFORMATION: Right lower quadrant pain COMPARISON: Ultrasound appendix august 29 09/29/[address] abdomen pelvis 03/29/2022 TECHNIQUE: Multidetector volumetric images were obtained from the superior aspect of the liver through the pubic symphysis following administration 85 mL of Omnipaque 350 intravenous contrast. Sagittal and coronal reformatted images were obtained on the technologist's workstation. Oral contrast: No This CT examination was performed using dose optimization techniques as appropriate, variously including the following: *Automated exposure control *Adjustment of mA and/or kV according to patient size (this includes techniques or standardized protocols for targeted exams where dose is matched to indication/reason for exam; i.e. extremities or head) *Use of iterative reconstruction technique DLP: 516 mGy-cm FINDINGS: LUNG BASES: Bibasilar atelectasis is seen. Triple-vessel coronary calcifications seen. Heart size normal. No pleural effusions. LIVER, GALLBLADDER, AND BILIARY TREE: The liver is mildly enlarged measuring 17.5 cm in cephalocaudad dimension with a suggestion of decreased attenuation raising the possibility of hepatic steatosis. In size, shape, and attenuation. No focal hepatic lesion or biliary ductal dilatation is present. The gallbladder is unremarkable with no evidence of radiopaque gallstones, or obvious pericholecystic inflammatory changes. A tiny phrygian cap is present with some local wall thickening. PANCREAS: Unremarkable. SPLEEN: Mild splenomegaly at 12.6 cm. ADRENAL GLANDS: Unremarkable. KIDNEYS AND URETERS: The kidneys are normal in size, shape, and attenuation. No hydronephrosis, hydroureter, or calculi seen. No perinephric stranding. BLADDER: Unremarkable. GASTROINTESTINAL TRACT: Extensive diverticulosis is noted in the sigmoid without evidence of diverticulitis. The small and large bowel are otherwise unremarkable. The appendix is unremarkable. ABDOMINAL WALL: No significant hernia is appreciated. LYMPH NODES: No retroperitoneal lymphadenopathy. VASCULAR: Marked calcific plaque present in the aorta and iliac vessels along with common femoral arteries. No aneurysms. PELVIC VISCERA: The prostate and seminal vesicles are unremarkable. OSSEOUS STRUCTURES: Unremarkable. CT/CT abdomen pelvis w IV con IMPRESSION: 1. A cause for the patient's abdominal pain has not been found. The appendix is normal. 2. Incidental note made of mildly enlarged fatty liver with mild splenomegaly. 3. Extensive sigmoid diverticulosis without diverticulitis. Fleischner guidelines were followed.
--- NOTE | ~2022-09-04 | US_ITS ---
EXAMINATION: US ABDOMEN LIMITED CLINICAL INFORMATION: Evaluation of the appendix. COMPARISON: CT abdomen/pelvis 03/29/2022. TECHNIQUE: Imaging of the abdomen was performed with a high-frequency linear transducer using graded compression. FINDINGS: The appendix is not demonstrated due to overlying gas and stool. No inflammatory changes are identified in the right lower quadrant. There is no free fluid. US/US appendix IMPRESSION: Evaluation of the appendix is non-diagnostic due to overlying gas and stool. No inflammatory changes identified in the right lower quadrant. If clinically deemed appropriate, recommend further evaluation with a CT of the abdomen/pelvis.
--- NOTE | 2022-09-04 15:11 | ED_ITS ---
HPI - General Adult General Chief complaint: Abdominal Pain Stated complaint: inflammation of appendix? Time Seen by Provider: 09/04/22 16:10 Source: patient Mode of arrival: ambulatory Limitations: no limitations History of Present Illness HPI narrative: 71-year-old male history of hypertension, diabetes, arthritis, vertigo presenting to the emergency department for concerns of appendicitis, according to patient he has been having 4 days of epigastric and lower quadrant pain progressively worsening, was seen by PCP who ordered an outpatient CT scan which was done today with IV contrast which showed acute appendicitis is advised to come into the emergency department for evaluation. Patient reports fatigue and malaise. Denies fevers, chills, nausea, vomiting, headache, vision changes, chest pain, shortness of breath. Related Data Home Medications Medication Instructions Recorded Confirmed metformin 1,000 mg tablet 1,000 mg PO BID 03/01/20 03/01/20 empagliflozin 25 mg tablet 25 mg PO DAILY 12/05/20 (Jardiance) insulin aspart U-100 100 unit/mL 40 unit subcut TID 12/05/20 subcutaneous solution (Novolog U-100 Insulin aspart) insulin detemir U-100 100 unit/mL 55 unit subcut BID 12/05/20 subcutaneous solution (Levemir U-100 Insulin) insulin syringe-needle U-100 0.5 #10 ea 12/05/20 mL 30 gauge x 1/2 (BD Insulin Syringe Ultra-Fine) lisinopril 5 mg tablet 5 mg PO DAILY 12/05/20 rosuvastatin 40 mg tablet 40 mg PO BEDTIME 12/05/20 blood sugar diagnostic (FreeStyle #10 ea 02/14/21 Lite Strips) lancets 28 gauge (FreeStyle #100 ea 02/14/21 Lancets) dulaglutide 1.5 mg/0.5 mL mg subcut QWEEK 09/04/22 subcutaneous pen injector (Trulicity) dupilumab 300 mg/2 mL subcutaneous mg subcut 09/04/22 pen injector (Dupixent) meclizine 12.5 mg tablet 12.5 mg PO TID PRN vertigo 09/04/22 omeprazole 20 mg capsule,delayed 20 mg PO DAILY 09/04/22 release quetiapine 25 mg tablet 25 mg PO BEDTIME 09/04/22 sertraline 50 mg tablet 50 mg PO DAILY 09/04/22 Previous Rx's Medication Instructions Recorded tamsulosin 0.4 mg capsule 0.4 mg PO DAILY 90 days #90 caps 04/01/22 Allergies Allergy/AdvReac Type Severity Reaction Status Date / Time No Known Allergies Allergy Verified 12/17/21 10:47 [No Known Allergies*] Review of Systems Review of Systems: Constitutional : No Weight loss, No Fever, No Chills, + Fatigue, + Malaise ENT/Mouth : No sore throat, No Rhinorrhea Eyes: No Eye Pain, No Swelling, No Redness Cardiovascular : No Chest Pain, No SOB, No Dyspnea on Exertion, No Orthopnea, No Edema, No Palpitations Respiratory : No Cough, No Sputum, No Wheezing Gastrointestinal : No Nausea, No Vomiting, No Diarrhea, No Constipation, + abdominal Pain, No Hematochezia, No Melena Genitourinary : No Dysuria, No Urinary Frequency, No Hematuria, Musculoskeletal : No joint pain, No Myalgias, No Joint Swelling Skin : No Skin Lesions, No rash Neuro : No Weakness, No Numbness, No Dizziness, No Headache Psych : No Anxiety/Panic, No Depression All other systems reviewed and are negative Yes all other systems are reviewed and are negative [facility] Past Medical History Attestation statement: The following information was validated with the patient. Source: old records reviewed and nursing notes reviewed Medical History Anxiety Arthritis Diabetes High cholesterol History of COVID-19 HTN (hypertension) Surgical History H/O colonoscopy History of esophagogastroduodenoscopy (EGD) Social History Social History Alcohol intake: current Alcohol intake frequency: holidays/special occasions only Patient Tobacco Use Status: Former Tobacco user Smoked in Last 30 Days: No Use of substances other than those prescribed or required for medical reasons: No Advance Directives: No Advance Directives Information Provided: No Current occupational status: disabled 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 Oriented X3.? No acute distress.? Head: Normocephalic, atraumatic, no step-offs or deformities Eyes: Pupils equal, round and reactive to light.? CVS: Normal heart rate and rhythm.? Pulses normal.? Respiratory: No respiratory distress.? Breath sounds normal.? Abdomen: Soft and + TTP to RLQ and suprapubic region. Normo active BS in all 4 quadrants .? Skin: Skin warm and dry.? Normal skin color.? Normal skin turgor.? Extremities: No lower extremity edema.? No calf ttp. 5/5 strength to bilateral upper and lower extremities Neuro: Oriented X 3.? No motor deficit.? No sensory deficit. CN 2-12 intact Course Course Course Narrative: RME performed by Kristin Paiz PA-C. Patient is a 71 year old assigned male at presenting to the emergency department with RLQ pain. Patient states that he got a CT scan elsewhere that showed appendicitis. Labs ordered. Patient placed back in the waiting room pending room availability and results. Reevaluation(s) Reevaluation #1: CBC appears to be around patient's baseline. Chemistry with no acute electrolyte abnormalities requiring intervention. UA clean. COVID negative. Trying to obtain imaging from [place] and facility where patient had imaging done. Waiting to hear back from [place] Time: 17:00 Reevaluation #2: Still waiting to hear back from [place], family informed and they are upset due to the wait. Therefore at this time a new CT will be obtained. I did speak to Dr. Chamberlain who tells me that a CT was done today and she got a verbal report for possible acute appendicitis. Images have not been uploaded in will likely not be uploaded until Wednesday therefore she also recommends repeat CT scan patient has tenderness to palpation Time: 19:09 Reevaluation #3: Records came in which show borderline appendiceal thickening of 8 mm with mild intraluminal fluid in slight. Appendiceal fat stranding. Suggesting early a ppendicitis in the appropriate clinical setting patient does have right lower quadrant tenderness to palpation. Scan here does not show acute appendicitis. This case was discussed with surgery patient will be admitted to the surgical team for observation and evaluation in the morning. Patient aware of plan. Time: 21:08 Medications Administered Generic Name Dose Route Start Last Admin Trade Name Freq PRN Reason Stop Dose Admin Heparin Sodium (Porcine) 5,000 unit 09/04/22 21:00 09/04/22 21:06 Heparin Sodium,Porcine 5,000 Unit/Ml Vial SUBCUT 5,000 unit Q12H [place] Administration Discontinued Medications Generic Name Dose Route Start Last Admin Trade Name Freq PRN Reason Stop Dose Admin Ceftriaxone Sodium 1 gm/ 50 mls @ 100 mls/hr 09/04/22 20:14 09/04/22 21:03 Sodium Chloride IV 09/04/22 20:43 100 mls/hr ONCE ONE Administration Medical Decision Making Medical Decision Making [facility] Narrative: 1610 71-year-old male presents with severe lower abdominal pain for the past 4 days worsening. Had a [address] outpatient done which showed appendicitis. Physical exam with suprapubic and right lower quadrant tenderness to palpation. Vital signs stable. Concerns for appendicitis. Will rule out UTI, cystitis. Unlikely electrolyte abnormalities. I do not suspect pancreatitis, cholecystitis, cholangitis, diverticulitis. Plan labs, imaging, urine. Differential Diagnosis Differential Diagnoses: The differential diagnosis associated with the presentation includes Concerns for appendicitis. Will rule out UTI, cystitis. Unlikely electrolyte abnormalities. I do not suspect pancreatitis, cholecystitis, cholangitis, diverticulitis. Admission/Observation Consideration of admission/observation: Escalation of care including admission/observation considered Likely Consult Healthcare Provider Management of the patient was discussed with: [employer] (Surgery) Lab Data [facility] Lab Attestation statement: I reviewed the patient's lab results. 09/04/22 15:22 09/04/22 15:22 Labs: Lab Results 09/04/22 09/04/22 09/04/22 Range/Units 15:22 15:22 15:22 WBC 5.3 (4.8-10.8) X10*3/uL RBC 3.84 L (4.60-5.80) X10*6/uL Hgb 11.5 L (14.0-18.0) g/dl Hct 34.5 L (42.0-52.0) % MCV 89.8 (80.0-98.0) fL MCH 29.9 (27.0-33.0) pg MCHC 33.3 (31.0-36.0) g/dl RDW 13.8 (11.0-16.0) % Plt Count 177 (160-400) X10*3/uL MPV 9.0 L (9.4-12.4) fL Immature Gran % (Auto) 0.2 (0.0-0.4) % Neut % (Auto) 49.1 (45-73) % Lymph % (Auto) 37.6 (20-40) % [place] % (Auto) 11.4 H (2-11) % Eos % (Auto) 1.3 (0-4) % Baso % (Auto) 0.4 (0-2) % Lymph # (Auto) 2.0 (1.2-4.9) X10*3/uL [place] # (Auto) 0.6 (0.1-1.2) X10*3/uL Eos # (Auto) 0.1 (0.0-0.4) X10*3/uL Baso # (Auto) 0.0 (0.0-0.2) X10*3/uL Abs Immat Gran (auto) 0.01 (0.00-0.03) X10*3/uL Absolute Neuts (auto) 2.6 (2.0-8.3) x10*3/uL Absolute Nucleated RBC 0.000 (0.0-0.012) X10*3/uL Nucleated RBC % (auto) 0.0 (0.0-0.2) /100WBC Sodium 137 (135-145) mmol/L Potassium 4.5 (3.3-5.1) mmol/L Chloride 103 (96-108) mmol/L Carbon Dioxide 26 (22-29) mmol/L Anion Gap 13 (12-20) BUN 18 H (9-16) mg/dL Creatinine 1.25 (0.5-1.4) mg/dL Estim Creat Clear Calc 54.7 Estimated GFR 57 POC Glucose (60-115) mg/dL Random Glucose 193 H (60-115) mg/dL Calcium 9.0 (8.4-10.2) mg/dL Magnesium 1.9 (1.6-2.6) mg/dL Total Bilirubin 0.4 (0.0-1.0) mg/dL AST 16 (5-37) U/L ALT 11 (0-40) U/L Alkaline Phosphatase 83 (39-117) U/L Total Protein 6.8 (6.5-8.0) g/dL Albumin 3.9 (3.5-5.0) g/dL Urine Color Urine Appearance Urine pH (5.0-9.0) Ur Specific [place] (1.005-1.025) Urine Protein (Neg-Trace) mg/dL Urine Glucose (UA) (Negative) mg/dL Urine Ketones (Negative) mg/dL Urine Blood (Negative) Urine Nitrite (Negative) Ur Leukocyte Esterase (Negative) Urine RBC (0-2) /HPF Urine WBC (0-5) /HPF Ur Squamous Epith Cells (0-2) /HPF Urine Bacteria (None Seen) Hyaline Casts (0-2) /LPF COVID-19 (MYRNA) Negative (Negative) COVID-19 Clin Com See Note 09/04/22 09/04/22 Range/Units 15:26 17:28 WBC (4.8-10.8) X10*3/uL RBC (4.60-5.80) X10*6/uL Hgb (14.0-18.0) g/dl Hct (42.0-52.0) % MCV (80.0-98.0) fL MCH (27.0-33.0) pg MCHC (31.0-36.0) g/dl RDW (11.0-16.0) % Plt Count (160-400) X10*3/uL MPV (9.4-12.4) fL Immature Gran % (Auto) (0.0-0.4) % Neut % (Auto) (45-73) % Lymph % (Auto) (20-40) % [place] % (Auto) (2-11) % Eos % (Auto) (0-4) % Baso % (Auto) (0-2) % Lymph # (Auto) (1.2-4.9) X10*3/uL [place] # (Auto) (0.1-1.2) X10*3/uL Eos # (Auto) (0.0-0.4) X10*3/uL Baso # (Auto) (0.0-0.2) X10*3/uL Abs Immat Gran (auto) (0.00-0.03) X10*3/uL Absolute Neuts (auto) (2.0-8.3) x10*3/uL Absolute Nucleated RBC (0.0-0.012) X10*3/uL Nucleated RBC % (auto) (0.0-0.2) /100WBC Sodium (135-145) mmol/L Potassium (3.3-5.1) mmol/L Chloride (96-108) mmol/L Carbon Dioxide (22-29) mmol/L Anion Gap (12-20) BUN (9-16) mg/dL Creatinine (0.5-1.4) mg/dL Estim Creat Clear Calc Estimated GFR POC Glucose 208 H (60-115) mg/dL Random Glucose (60-115) mg/dL Calcium (8.4-10.2) mg/dL Magnesium (1.6-2.6) mg/dL Total Bilirubin (0.0-1.0) mg/dL AST (5-37) U/L ALT (0-40) U/L Alkaline Phosphatase (39-117) U/L Total Protein (6.5-8.0) g/dL Albumin (3.5-5.0) g/dL Urine Color Yellow Urine Appearance Clear Urine pH 7.0 (5.0-9.0) Ur Specific [place] >= 1.030 H (1.005-1.025) Urine Protein 30 (1+) H (Neg-Trace) mg/dL Urine Glucose (UA) Negative (Negative) mg/dL Urine Ketones Negative (Negative) mg/dL Urine Blood Negative (Negative) Urine Nitrite Negative (Negative) Ur Leukocyte Esterase Negative (Negative) Urine RBC 0-2 (0-2) /HPF Urine WBC 0-5 (0-5) /HPF Ur Squamous Epith Cells 0-2 (0-2) /HPF Urine Bacteria None Seen (None Seen) Hyaline Casts 0-2 (0-2) /LPF COVID-19 (MYRNA) (Negative) COVID-19 Clin Com Independent Interpretation I performed an independent interpretation of an: Ultrasound and CT Scan (CT/CT abdomen pelvis w IV con IMPRESSION: 1. A cause for the patient's abdominal pain has not been found. The appendix is normal. 2. Incidental note made of mildly enlarged fatty liver with mild splenomegaly. 3. Extensive sigmoid diverticulosis without diverticulitis. Fleischner guidelines were) Radiology Impression Discussion of test interpretation with radiology: I have reviewed the radiologist's reading. Core Measures AMI core measures followed: Yes Measure exclusions: not indicated Critical Care Time Critical Care Time Critical Care Time: Yes Total Critical Care Time: 35 Attestation: I attest to this time spent taking care of the patient, obtaining history, physical, reviewing labs, imaging, speaking to my attending, speaking to specialist. Discharge Plan Discharge Clinical Impression: Abdominal pain, RLQ Patient Disposition: Admitted As Inpatient
[2022-09-04 15:12] VITALS: BP 120/64; PULSE 93; RESP 17; TEMP 36.6; O2SAT 98; BMI 27.7
[2022-09-04 15:27] LABS: MANUAL DIFF FLAG NO
[2022-09-04 15:30] LABS: Basophils Percent Auto 0.4 % (0-2); Eosinophils Absolute Auto 0.1 X10*3/uL (0.0-0.4); Eosinophils Percent Auto 1.3 % (0-4); Hematocrit 34.5 % (42.0-52.0); Hemoglobin 11.5 g/dl (14.0-18.0); Imm Gran Abs Auto 0.01 X10*3/uL (0.00-0.03); Imm Gran Pct Auto 0.2 % (0.0-0.4); Lymphocytes Percent Auto 37.6 % (20-40); Mean Corpuscular HGB Conc 33.3 g/dl (31.0-36.0); Mean Corpuscular Hemoglobin 29.9 pg (27.0-33.0); Mean Corpuscular Volume 89.8 fL (80.0-98.0); Monocytes Absolute Auto 0.6 X10*3/uL (0.1-1.2); Monocytes Percent Auto 11.4 % (2-11); Neutrophils Absolute Auto 2.6 x10*3/uL (2.0-8.3); Neutrophils Percent Auto 49.1 % (45-73); Platelet Count 177 X10*3/uL (160-400); Red Blood Count 3.84 X10*6/uL (4.60-5.80); Red Cell Distribution Width 13.8 % (11.0-16.0); White Blood Count 5.3 X10*3/uL (4.8-10.8)
[2022-09-04 15:34] LABS: Appearance Urine Clear; Color Urine Yellow; Glucose Urine UA Negative (Negative); Leukocyte Esterase Urine Negative (Negative); Nitrite Urine Negative (Negative); Specific Gravity - Urine >= 1.030 (1.005-1.025); UMIC TRIGGER UACC YES; Urine Blood Negative (Negative); Urine Ketones Negative (Negative); Urine Protein 30 (1+) mg/dL (Neg-Trace)
[2022-09-04 15:39] LABS: Bacteria Urine None Seen (None Seen); Hyaline Casts Urine 0-2 /LPF (0-2); RBC Urine 0-2 /HPF (0-2); Squamous Epithelial Cell Urine 0-2 /HPF (0-2); WBC Urine 0-5 /HPF (0-5)
--- NOTE | 2022-09-04 15:45 | PC.NURSE ---
pt brought back from waiting room. Resting on stretcher at this time, respirations even and unlabored, skin pwd, no apparent distress endorses pain in his mid abdomen. 20g IV placed in R wrist. Awaiting md sign up at this time
[2022-09-04 15:47] LABS: Alanine Aminotransferase 11 U/L (0-40); Albumin Level 3.9 g/dL (3.5-5.0); Alkaline Phosphatase 83 U/L (39-117); Anion Gap 13 (12-20); Aspartate Amino Transferase 16 U/L (5-37); Bilirubin Total 0.4 mg/dL (0.0-1.0); Blood Urea Nitrogen 18 mg/dL (9-16); Carbon Dioxide 26 mmol/L (22-29); Chloride 103 mmol/L (96-108); Creatinine Clr Calc Pharmacy 54.7; Estimated Glomerular Filt Rate 57; Glucose Random 193 mg/dL (60-115); Magnesium 1.9 mg/dL (1.6-2.6); Potassium 4.5 mmol/L (3.3-5.1); Sodium 137 mmol/L (135-145); Total Protein 6.8 g/dL (6.5-8.0)
[2022-09-04 15:57] LABS: COVID-19 Test Negative (Negative); IDNOW Serial# 08D9AD1C
[2022-09-04 16:39] VITALS: BP 127/63; PULSE 93; RESP 16; O2SAT 97
[2022-09-04 17:33] LABS: Glucose, Whole Blood 208 mg/dL (60-115)
--- NOTE | 2022-09-04 17:51 | PC.NURSE ---
pt family member asked this RN if patient will receive fluids, this RN explained that it is up to the provider for whether or not he received fluids or not. Pt also reporting feeling like his blood sugar is low due to him having tremors. This RN checked the patients blood glucose, result of 201, this RN let pt and family member know he is not low
[2022-09-04 18:09] VITALS: BP 126/72; PULSE 91; RESP 16; TEMP 36.4; O2SAT 95
--- NOTE | 2022-09-04 18:13 | PC.NURSE ---
per Keysha, PCT patient would like to leave because the TV in the room does not work This RN apologized for the inconvenience and alerted CHARITO Maier
--- NOTE | 2022-09-04 19:44 | PC.NURSE ---
pt and family member agreeable to re-scanning the patient at this time
[2022-09-04 20:12] VITALS: BP 133/74; PULSE 98; RESP 16; TEMP 36.8; O2SAT 97
--- NOTE | 2022-09-04 20:30 | PM.HPGS ---
History of Present Illness History of Present Illness Date of Service: 09/05/22 Chief complaint: Early appendicitis Narrative: Adan Hernandes is a 71 year old male presenting with complaints of a 4 day history of abdominal pain in the epigastrium and right lower quadrant. The pain began repair umbilical region and then radiated to the lower suprapubic region. He was evaluated by his PCP and a CT abdomen performed at an outside institution. By report the CT apparently showed acute appendicitis and the patient was subsequently sent to the emergency department. Patient denied fever, chills, nausea, vomiting, anorexia, diarrhea or constipation. In the emergency department, workup revealed a normal WBC. The outside images were not available for review. As results an abdominal ultrasound was performed which revealed a nonvisualization of the appendix due to overlying bowel. CT abdomen and pelvis was repeated and revealed a normal appendix with no inflammatory changes, no dilation, no fluid collection and no other explanation for the patient's pain. There was some mild diverticulosis without evidence of abscess or infection. Patient reports a prior colonoscopy approximately 8 years ago which was normal. This morning he feels much improved with no abdominal pain. He is hungry and would like to eat. Review of Systems Review of Systems: Yes all other systems are reviewed and are negative Constitutional: Constitutional: Denies chills, Denies fever(s), Denies headache(s), Denies poor appetite and Denies weakness ENT: Denies headache(s) Cardiovascular: Cardiovascular: Denies chest pain, Denies irregular heart rhythm, Denies palpitations and Denies dyspnea Respiratory: Respiratory: Denies cough, Denies excessive phlegm production and Denies dyspnea Gastrointestinal: Gastrointestinal: Reports as per HPI, Reports abdominal pain, Denies bloating, Denies change in bowel habits, Denies constipation, Denies heartburn, Denies diarrhea, Denies nausea and Denies vomiting Genitourinary: Genitourinary: Denies difficulty urinating and Denies urinary frequency Musculoskeletal: Musculoskeletal: Denies back pain, Denies muscle weakness and Denies numbness Integumentary/Breasts: Skin/Breast: Denies changing lesions and Denies unusual bruising Neurologic: Denies headache(s), Denies numbness, Denies paresthesias and Denies weakness Psychiatric: Psychiatric: Denies anxiety and Denies depression Endocrine: Endocrine: Denies palpitations Hematologic/Lymphatic: Hematologic/Lymphatic: Denies lymphadenopathy PMFSH Past Medical History Medical History Anxiety Arthritis Diabetes High cholesterol History of COVID-19 HTN (hypertension) Surgical History Surgical History H/O colonoscopy History of esophagogastroduodenoscopy (EGD) Social History Social History Alcohol intake: current Alcohol intake frequency: holidays/special occasions only Patient Tobacco Use Status: Former Tobacco user Smoked in Last 30 Days: No Patient Interested in Nicotine Replacement: No Patient Given Instructions on How to Stop Smoking: No Second Hand Smoke Exposure: No Use of substances other than those prescribed or required for medical reasons: No Advance Directives: No Advance Directives Information Provided: No Nutrition Risks: No Nutritional Risk Current occupational status: disabled 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 Meds Allergies Allergy/AdvReac Type Severity Reaction Status Date / Time No Known Allergies Allergy Verified 12/17/21 10:47 [No Known Allergies*] Active Medications: Current Medications Heparin Sodium (Porcine) (Heparin Sodium,Porcine 5,000 Unit/Ml Vial) 5,000 unit SUBCUT Q12H [place] Hydromorphone HCl (Hydromorphone Hcl 0.5 Mg/0.5 Ml Syringe) 0.5 mg IVPUSH Q3H PRN; Protocol PRN Reason: Pain, Severe (Pain Scale 7-10) Ceftriaxone Sodium 1 gm/ (Sodium Chloride) 50 mls @ 100 mls/hr IV ONCE ONE Stop: 09/04/22 20:43 Lactated Ringer's (Lr) 1,000 mls @ 100 mls/hr IVCONT .Q10H [place] Acetaminophen (Ofirmev) 1,000 mg in 100 mls @ 400 mls/hr IV Q6H [place] Stop: 09/05/22 14:44 Piperacillin Sod/Tazobactam (Sod 3.375 gm/ Sodium Chloride) 50 mls @ 100 mls/hr IV Q6H [place] Ondansetron HCl (Ondansetron Hcl 4 Mg/2 Ml Vial) 4 mg IVPUSH QID PRN PRN Reason: Nausea Oxycodone HCl (Oxycodone Hcl Immed Release 5 Mg Tablet) 5 mg PO Q6H PRN PRN Reason: Pain, Moderate(Pain Scale 4-6) Pharmacy Consult (Consult Rx Perform Med Rec) 1 each MISCELLANE ONCE PRN PRN Reason: Consult order Pharmacy Consult (Consult Rx Perform Med Rec) 1 each MISCELLANE ONCE PRN PRN Reason: Consult order Sodium Chloride (0.9 % Sodium Chloride Flush 3 Ml Syringe) 3 ml IVFLUSH [facility] Zolpidem Tartrate (Zolpidem Tartrate 5 Mg Tablet) 5 mg PO BEDTIME PRN PRN Reason: Insomnia Home Medications Medication Instructions Recorded Confirmed Last Taken Type metformin 1,000 mg tablet 1,000 mg PO DAILY 03/01/20 09/04/22 09/03/22 History insulin detemir U-100 100 unit/mL 55 unit subcut BEDTIME 12/05/20 09/04/22 09/03/22 History subcutaneous solution (Levemir U-100 Insulin) insulin syringe-needle U-100 0.5 #10 ea 12/05/20 Unknown History mL 30 gauge x 1/2 (BD Insulin Syringe Ultra-Fine) lisinopril 5 mg tablet 5 mg PO DAILY 12/05/20 09/04/22 09/03/22 History rosuvastatin 40 mg tablet 40 mg PO BEDTIME 12/05/20 09/04/22 09/03/22 History blood sugar diagnostic (FreeStyle #10 ea 02/14/21 Unknown History Lite Strips) lancets 28 gauge (FreeStyle #100 ea 02/14/21 Unknown History Lancets) dulaglutide 1.5 mg/0.5 mL 1.5 mg subcut TU 09/04/22 09/04/22 09/01/22 History subcutaneous pen injector (Trulicity) dupilumab 300 mg/2 mL subcutaneous 300 mg subcut Q15D 09/04/22 09/04/22 08/25/22 History pen injector (Dupixent) insulin lispro 100 unit/mL 45 unit subcut TID 09/04/22 09/04/22 09/04/22 History subcutaneous solution (Humalog U-100 Insulin) omeprazole 20 mg capsule,delayed 20 mg PO DAILY@0630 09/04/22 09/04/22 09/03/22 History release Physical Exam Vital Signs: Vital Signs: Last Vital Signs Temp 98.3 F 09/04/22 20:12 Pulse 98 09/04/22 20:12 Resp 16 09/04/22 20:12 BP 133/74 09/04/22 20:12 Pulse Ox 97 09/04/22 20:12 O2 Del Method Room Air 09/04/22 20:12 BMI result Body Mass Index 27.7 Const: General: cooperative and no acute distress Nutritional Appearance: well nourished Orientation/consciousness: patient oriented x3 Limitations: no limitations HEENT: Head: Yes normocephalic and Yes atraumatic Ears: hearing grossly normal bilaterally Resp: Effort & Inspection: normal respiratory effort, no audible wheezes, no cough and no respiratory distress Cardio: Jugular venous distension: no JVD GI: Inspection: Yes normal to inspection Palpation (GI): Soft to palpation, nontender, no guarding, not rigid and No hepatosplenomegaly present Percussion: Yes normal to percussion Auscultation: normal bowel sounds Rectal Exam - Male: Yes deferred Skin: Other: Warm, dry, no rash Neuro: General: patient oriented x3 Extrem: General: Yes no clubbing, cyanosis or edema Results Results Labs: Short CBC 09/04/22 Range/Units 15:22 WBC 5.3 (4.8-10.8) X10*3/uL Hgb 11.5 L (14.0-18.0) g/dl Hct 34.5 L (42.0-52.0) % Plt Count 177 (160-400) X10*3/uL BMP 09/04/22 15:22 Sodium 137 Potassium 4.5 Chloride 103 Carbon Dioxide 26 BUN 18 H Creatinine 1.25 Calcium 9.0 Liver Function 09/04/22 Range/Units 15:22 Total Bilirubin 0.4 (0.0-1.0) mg/dL AST 16 (5-37) U/L ALT 11 (0-40) U/L Alkaline Phosphatase 83 (39-117) U/L Albumin 3.9 (3.5-5.0) g/dL Urine 09/04/22 Range/Units 15:26 Urine Color Yellow Urine Appearance Clear Urine pH 7.0 (5.0-9.0) Ur Specific [place] >= 1.030 H (1.005-1.025) Urine Protein 30 (1+) H (Neg-Trace) mg/dL Urine Glucose (UA) Negative (Negative) mg/dL Abdomen CT scan report/results: image reviewed CT scan - pelvis: image reviewed Assessment and Plan (1) Acute appendicitis: Qualifiers: Acute appendicitis type: unspecified acute appendicitis type Qualified Code(s): K35.80 - Unspecified acute appendicitis Plan 71-year-old male patient presenting with a 4 day history of abdominal pain initially thought to have acute appendicitis by CT at an outside institution. Workup in the emergency department however revealed a normal appearing appendix by CT and a nonvisualized appendix by ultrasound. Laboratories last evening and this morning have been normal normal WBC. Findings may be suggestive of early acute appendicitis however patient currently has no symptoms in his abdominal exam is benign. I will advance his diet to regular and plan on discharge later today to home. He should follow up in the office in approximately 1-2 weeks. Time Spent With Patient Time: Total time managing care of this patient today ____ minutes. Quality Stroke Does the patient have a stroke diagnosis?: No VTE Prior VTE?: No VTE Risk Level:: Surgical - moderate VTE Device Contraindication: N/A - Device Ordered VTE Drug Contraindication: N/A - Med Ordered Procedures Date of Service Date of Service: 09/05/22
[2022-09-04] MEDS: cefTRIAXone sodium 1 GM in 0.9 % Sodium Chloride 50 ML IV (21:03)
[2022-09-04] MEDS: Lactated Ringers 1,000 ML 100 ML IVCONT (21:06)
[2022-09-04] MEDS: Heparin Sodium,Porcine 5,000 UNIT/ML VIAL 5000 UNIT SUBCUT (21:06)
--- NOTE | 2022-09-04 21:15 | PHA.MEDREC ---
Pharmacy Consult ? Medication Reconciliation Pharmacy has completed the medication reconciliation. With assistance of daughter to translate and a list she brought in I was able to do med rec. Pt states he takes 55 units levemir at bed and 45 units HUMALOG tid. Only started omeprazole yesterday. Missed all morning medications today with exception of insulin dose.
[2022-09-04] MEDS: Acetaminophen 1,000 MG/100 ML PIGGYBACK 400 MG IV (21:31)
[2022-09-04] MEDS: Piperacillin Sodium/Tazobactam 3.375 GM in 0.9 % Sodium Chloride 50 ML IV (22:14)
--- NOTE | 2022-09-04 22:19 | PC.NURSE ---
Last abx late due to only having one IV line and administering other medications. Final abx zosyn going in now. LR paused until Zosyn finishes. Pt reports improved pain and offers no other complaints at this time
[2022-09-04 22:47] VITALS: BP 128/75; PULSE 92; RESP 16; TEMP 36.6; O2SAT 97
[2022-09-05] VITALS: BP 131/68; PULSE 83; RESP 18; TEMP 36.1; O2SAT 99
[2022-09-05] MEDS: Acetaminophen 1,000 MG/100 ML PIGGYBACK 400 MG IV ×2 (04:10→08:10)
[2022-09-05] MEDS: Piperacillin Sodium/Tazobactam 3.375 GM in 0.9 % Sodium Chloride 50 ML IV ×2 (04:53→08:40)
[2022-09-05 06:22] LABS: MANUAL DIFF FLAG NO
[2022-09-05 06:25] LABS: Basophils Percent Auto 0.7 % (0-2); Eosinophils Absolute Auto 0.1 X10*3/uL (0.0-0.4); Hematocrit 35.5 % (42.0-52.0); Hemoglobin 11.9 g/dl (14.0-18.0); Imm Gran Abs Auto 0.01 X10*3/uL (0.00-0.03); Imm Gran Pct Auto 0.2 % (0.0-0.4); Lymphocytes Absolute Auto 1.8 X10*3/uL (1.2-4.9); Lymphocytes Percent Auto 44.6 % (20-40); Mean Corpuscular HGB Conc 33.5 g/dl (31.0-36.0); Mean Corpuscular Hemoglobin 30.1 pg (27.0-33.0); Mean Corpuscular Volume 89.9 fL (80.0-98.0); Mean Platelet Volume 9.5 fL (9.4-12.4); Monocytes Absolute Auto 0.5 X10*3/uL (0.1-1.2); Monocytes Percent Auto 11.1 % (2-11); Neutrophils Absolute Auto 1.7 x10*3/uL (2.0-8.3); Neutrophils Percent Auto 41.4 % (45-73); Platelet Count 168 X10*3/uL (160-400); Red Blood Count 3.95 X10*6/uL (4.60-5.80); Red Cell Distribution Width 13.3 % (11.0-16.0)
[2022-09-05 08:00] VITALS: BP 124/69; PULSE 79; RESP 17; TEMP 36; O2SAT 99
[2022-09-05] MEDS: Lactated Ringers 1,000 ML 100 ML IVCONT (08:11)
[2022-09-05] MEDS: Heparin Sodium,Porcine 5,000 UNIT/ML VIAL 5000 UNIT SUBCUT (08:16)
--- NOTE | 2022-09-05 09:25 | P.DS_ITS ---
DS: Providers Provider Date of Service: 09/05/22 Date of admission: 09/04/22 20:22 Primary care physician: Carine Chamberlain MD Admitting clinician: Randy Ellis Consults: 09/04/22 20:23 Consult to Hospitalist Routine Comment: Consulting Provider: Hospitalist Reason For Exam: Early appendicitis, Diabetes, med management Discharging clinician: Randy Ellis DS: Diagnosis Discharge Diagnosis (1) Abdominal pain, RLQ: Status: Acute DS: Summary Hospital Course Hospital Course: Adan Hernandes is a 71 year old male? presenting with complaints of a 4 day history of abdominal pain in the epigastrium and right lower quadrant.? The pain began repair umbilical region and then radiated to the lower suprapubic region.? He was evaluated by his PCP and a CT abdomen performed at an outside institution.? By report the CT apparently showed acute appendicitis and the patient was subsequently sent to the emergency department.? Patient denied fev er, chills, nausea, vomiting, anorexia, diarrhea or constipation.? In the emergency department, workup revealed a normal WBC.? The outside images were not available for review.? As results an abdominal ultrasound was performed which revealed a nonvisualization of the appendix due to overlying bowel.? CT abdomen and pelvis was repeated and revealed a normal appendix with no inflammatory changes, no dilation, no fluid collection and no other explanation for the patient's pain.? There was some mild diverticulosis without evidence of abscess or infection.? Patient reports a prior colonoscopy approximately 8 years ago which was normal.? This morning he feels much improved with no abdominal pain.? He is hungry and would like to eat. On examination the patient is awake, alert in no acute distress breathing comfortably on room air. Abdominal exam is benign with no tenderness to deep palpation. There is no rebound, guarding or rigidity. Repeat laboratories this morning revealed a normal WBC. The patient was started on a regular diet and tolerated this well without nausea, vomiting, fever, chills, or increased abdominal pain. He reports feeling comfortable and would like to be discharged to home. Plan for discharge to home on oral antibiotics for the next 10 days. He should follow up in the office in 1 week, sooner p.r.n.. He expressed understanding and agrees with the plan. Discussed with the patient's daughter as well. Time spent discussing smoking cessation with patient: 3 to 10 minutes Status at Discharge Functional status at discharge: independent ambulation Overall status at discharge: patient is back to baseline Time Spent with Patient Time attestation: Total time managing care of this patient today ____ minutes. Discharge coordination time: Less than 30 minutes Quality: Safe Use of Opioids Does Pt have an Active Cancer Diagnosis on the Problem List?: No Quality: Stroke Does the patient have a stroke diagnosis?: No Physical Exam Vital Signs: Vital Signs: Last Vital Signs Temp 96.8 F 09/05/22 08:00 Pulse 79 09/05/22 08:00 Resp 17 09/05/22 08:00 BP 124/69 09/05/22 08:00 Pulse Ox 99 09/05/22 08:00 O2 Del Method Room Air 09/05/22 08:00 BMI result Body Mass Index 27.7 Const: General: cooperative and no acute distress Nutritional Appearance: well nourished Orientation/consciousness: patient oriented x3 Limitations: no limitations HEENT: Head: Yes normocephalic and Yes atraumatic Ears: hearing grossly normal bilaterally Resp: Effort & Inspection: normal respiratory effort, no audible wheezes, no cough and no respiratory distress Cardio: Jugular venous distension: no JVD GI: Inspection: Yes normal to inspection Palpation (GI): Soft to palpation, nontender, no guarding, not rigid and No hepatosplenomegaly present Percussion: Yes normal to percussion Auscultation: normal bowel sounds Rectal Exam - Male: Yes deferred Skin: Other: Warm, dry, no rash Neuro: General: patient oriented x3 Extrem: General: Yes no clubbing, cyanosis or edema DS: Data Data Completed and Pending Labs on day of discharge: Laboratory Results - last 24 hr 09/04/22 09/04/22 09/04/22 15:22 15:22 15:22 WBC 5.3 RBC 3.84 L Hgb 11.5 L Hct 34.5 L MCV 89.8 MCH 29.9 MCHC 33.3 RDW 13.8 Plt Count 177 MPV 9.0 L Immature Gran % (Auto) 0.2 Neut % (Auto) 49.1 Lymph % (Auto) 37.6 [place] % (Auto) 11.4 H Eos % (Auto) 1.3 Baso % (Auto) 0.4 Lymph # (Auto) 2.0 [place] # (Auto) 0.6 Eos # (Auto) 0.1 Baso # (Auto) 0.0 Abs Immat Gran (auto) 0.01 Absolute Neuts (auto) 2.6 Absolute Nucleated RBC 0.000 Nucleated RBC % (auto) 0.0 Sodium 137 Potassium 4.5 Chloride 103 Carbon Dioxide 26 Anion Gap 13 BUN 18 H Creatinine 1.25 Estim Creat Clear Calc 54.7 Estimated GFR 57 POC Glucose Random Glucose 193 H Calcium 9.0 Magnesium 1.9 Total Bilirubin 0.4 AST 16 ALT 11 Alkaline Phosphatase 83 Total Protein 6.8 Albumin 3.9 Urine Color Urine Appearance Urine pH Ur Specific [place] Urine Protein Urine Glucose (UA) Urine Ketones Urine Blood Urine Nitrite Ur Leukocyte Esterase Urine RBC Urine WBC Ur Squamous Epith Cells Urine Bacteria Hyaline Casts COVID-19 (MYRNA) Negative COVID-19 Clin Com See Note 09/04/22 09/04/22 09/05/22 15:26 17:28 05:31 WBC 4.0 L RBC 3.95 L Hgb 11.9 L Hct 35.5 L MCV 89.9 MCH 30.1 MCHC 33.5 RDW 13.3 Plt Count 168 MPV 9.5 Immature Gran % (Auto) 0.2 Neut % (Auto) 41.4 L Lymph % (Auto) 44.6 H [place] % (Auto) 11.1 H Eos % (Auto) 2.0 Baso % (Auto) 0.7 Lymph # (Auto) 1.8 [place] # (Auto) 0.5 Eos # (Auto) 0.1 Baso # (Auto) 0.0 Abs Immat Gran (auto) 0.01 Absolute Neuts (auto) 1.7 L Absolute Nucleated RBC 0.000 Nucleated RBC % (auto) 0.0 Sodium Potassium Chloride Carbon Dioxide Anion Gap BUN Creatinine Estim Creat Clear Calc Estimated GFR POC Glucose 208 H Random Glucose Calcium Magnesium Total Bilirubin AST ALT Alkaline Phosphatase Total Protein Albumin Urine Color Yellow Urine Appearance Clear Urine pH 7.0 Ur Specific [place] >= 1.030 H Urine Protein 30 (1+) H Urine Glucose (UA) Negative Urine Ketones Negative Urine Blood Negative Urine Nitrite Negative Ur Leukocyte Esterase Negative Urine RBC 0-2 Urine WBC 0-5 Ur Squamous Epith Cells 0-2 Urine Bacteria None Seen Hyaline Casts 0-2 COVID-19 (MYRNA) COVID-19 Clin Com Discharge Plan Discharge Anticipated Discharge Date/Time: 09/05/22 09:19 Patient Disposition: Home, Self-Care Referrals: Carine Chamberlain MD [Primary Care Provider] - 1 Week Randy Ellis MD [Physician] - 1 Week Discharge Medications: New amoxicillin-pot clavulanate [Augmentin] 500-125 mg tablet 1 tab PO Q8H 10 Days Qty: 30 0RF oxycodone 5 mg tablet 5 mg PO Q6H PRN (Reason: pain (scale score 7-10)) Qty: 15 0RF Rx Instructions: Partial Fill upon patient request. Continued tamsulosin 0.4 mg capsule 0.4 mg PO DAILY 90 Days Qty: 90 1RF omeprazole 20 mg capsule,delayed release(DR/EC) 20 mg PO DAILY@0630 Trulicity 1.5 mg/0.5 mL pen injector 1.5 mg subcut TU Dupixent Pen 300 mg/2 mL pen injector 300 mg subcut Q15D insulin lispro [Humalog U-100 Insulin] 100 unit/mL Solution 45 unit SUBCUT TID metformin 1,000 mg tablet 1,000 mg PO DAILY (DME) insulin syringe-needle U-100 [BD Insulin Syringe Ultra-Fine] 0.5 mL 30 gauge x 1/2 syringe See Rx Instructions .ROUTE .MEDSUPPLY Qty: 10 Rx Instructions: As directed Levemir U-100 Insulin 100 unit/mL solution 55 unit subcut BEDTIME rosuvastatin 40 mg tablet 40 mg PO BEDTIME lisinopril 5 mg tablet 5 mg PO DAILY (DME) lancets [FreeStyle Lancets] 28 gauge misc See Rx Instructions topical TID Qty: 100 Rx Instructions: As directed (DME) FreeStyle Lite Strips Strip See Rx Instructions Not Applicable TID Qty: 10 Rx Instructions: As directed Discharge Orders: Discharge Order (Routine); Ordered 09/05/22 Ordered By: Randy Ellis Diet: Advance to usual diet Activity on Discharge: As tolerated Stand Alone Forms: Patient Portal Discharge page Care Plan Goals: Return to normal activity and diet Health Concerns: lower abdominal pain, negative appendicitis Plan of Treatment: antibiotic therapy Assessment: early appendicitis versus diverticulosis
== END 2022-09-05 10:18 | disposition home or self-care (01) ==
LOC: HO.ED 16:27 → HO.EDOVER 21:30 → HO.S3 23:57
PROVIDERS: Physician Assistant Medical; Admitting Provider Surgery; Emergency Provider Internal Medicine; PCP Internal Medicine; Visit Provider Surgery
DX: K35.80 Unspecified acute appendicitis (principal); R10.30 Lower abdominal pain, unspecified; Z20.822 Contact with and (suspected) exposure to COVID-19; E11.9 Type 2 diabetes mellitus without complications; I10 Essential (primary) hypertension; E78.5 Hyperlipidemia, unspecified; Z79.02 Long term (current) use of antithrombotics/antiplatelets; Z79.4 Long term (current) use of insulin; Z79.899 Other long term (current) drug therapy
CPT/HCPCS: 36415; 74177; 76705; 80053; 81001; 82947; 83735; 85025; 87040; 87635; 96361; 96365; 96366; 96367; 96372; 96375; 96376; 99221; 99285; J0131; J0696; J1643; J2543

== ENCOUNTER → 2022-09-15 09:03 | Outpatient (BNVA) | payer MEDICARE, MEDICAID, SELFPAY | PROVIDERS: PCP Internal Medicine; Visit Provider Surgery | DX: R10.31 Right lower quadrant pain (principal) | CPT/HCPCS: 99212 ==

== ENCOUNTER 2022-10-08 09:33 | Outpatient (REF) | payer MEDICARE, MEDICAID, SELFPAY ==
[2022-10-08 09:49] LABS: MANUAL DIFF FLAG NO
[2022-10-08 10:24] LABS: Basophils Percent Auto 0.8 % (0-2); Eosinophils Absolute Auto 0.1 X10*3/uL (0.0-0.4); Eosinophils Percent Auto 1.4 % (0-4); Hematocrit 38.3 % (42.0-52.0); Hemoglobin 12.5 g/dl (14.0-18.0); Imm Gran Abs Auto 0.01 X10*3/uL (0.00-0.03); Imm Gran Pct Auto 0.2 % (0.0-0.4); Lymphocytes Percent Auto 38.8 % (20-40); Mean Corpuscular HGB Conc 32.6 g/dl (31.0-36.0); Mean Corpuscular Hemoglobin 29.3 pg (27.0-33.0); Mean Corpuscular Volume 89.9 fL (80.0-98.0); Mean Platelet Volume 9.3 fL (9.4-12.4); Monocytes Absolute Auto 0.5 X10*3/uL (0.1-1.2); Monocytes Percent Auto 10.3 % (2-11); Neutrophils Absolute Auto 2.5 x10*3/uL (2.0-8.3); Neutrophils Percent Auto 48.5 % (45-73); Platelet Count 205 X10*3/uL (160-400); Red Blood Count 4.26 X10*6/uL (4.60-5.80); Red Cell Distribution Width 13.5 % (11.0-16.0); White Blood Count 5.1 X10*3/uL (4.8-10.8)
[2022-10-08 10:58] LABS: Iron 70 mcg/dL (45-160); Percent Iron Saturation 25 % (15-50); Total Iron Binding Capacity 285 mcg/dL (228-428); Unsaturated Iron Binding 215 ug/dL
[2022-10-08 11:17] LABS: Ferritin 113 ng/mL (20-250)
[2022-10-08 11:27] LABS: Folate 11.8 ng/mL (> or = 4.0); Vitamin B12 378 pg/mL (200-900)
== END 2022-10-08 09:34 | disposition home or self-care (01) ==
LOC: HO.LAB 09:33
PROVIDERS: Visit Provider Internal Medicine
DX: D64.9 Anemia, unspecified (principal)
CPT/HCPCS: 36415; 82607; 82728; 82746; 83540; 85025

== ENCOUNTER 2022-11-03 09:00 | Outpatient (RCR) | payer MEDICARE, MEDICAID, SELFPAY ==
[2022-10-14 09:04] VITALS: BP 112/62; PULSE 85
--- NOTE | 2022-10-14 10:06 | MHC.PT.EP ---
[facility] [place] [facility] [place] [facility] [place] [facility] [address] Doron Noguera [address] [phone] F: [phone] F: [phone] F: [phone] F: [phone] Physical Therapy Plan of Care Date of Evaluation: Date of Surgery: NA Diagnosis: Vertigo Assessment: Adan is a 72 year old male who is referred to PT for vertigo . He reports of having symptoms of dizziness for about 2 years. He describes them as room spinning and is present when he walks, bends over, turning head and rolling in bed. He denies having nausea or vomiting. On PT examination he presented with intact saccades, smooth pursuit, visual tracking, negative head thrust, and negative for BPPV in B [place] (pt did not relax well and I was unable to get a good position). He was negative for nystagmus and B roll test but reported of being dizzy. Mildly impaired static balance noted. DGI not done. He lives alone but his daughter who is his ENERGY ASSISTANT assists him with ADLS (has been doing that for 10 years). He would benefit from skilled PT to address the aforementioned impairments and improve tolerance to functional activities. Frequency and Duration: The patient will be seen 2/week for 4 weeks Short Term Goals: 1. Pt to be re-assessed for BPPV and DGI in next session. 2. Pt will be negative for nystagmus or reports of vertigo in all diagnostic positions bilaterally to resolution of BPPV in 2 weeks. Corporate Director Goals: 1. Patient to be educated on symptoms and indications to return to therapy when needed min 4 weeks. 2. Patient to be able to functionally move in all planes and directions without provocation of dizziness to show return to PLOF in 4 weeks. Treatment Plan: Modalities to reduce pain, spasms and effusion. Manual therapy to restore motion and function. Therapeutic exercise to improve strength and flexibility. Neuromuscular re-education for posture and balance. Therapeutic activities to return to functional activities of daily living. Electronically signed by: Beryl Lemus PT DPT Please sign and return to therapist. Thank you for your referral.
--- NOTE | 2022-11-27 14:00 | MHC.PT.DC ---
[facility] [place] [facility] [place] [facility] [place] [facility] [address] Doron Noguera [address] [phone] F: [phone] F: [phone] F: [phone] F: [phone] Physical Therapy Discharge Report Diagnosis: Vertigo Date of Surgery: NA Date of Evaluation: 10/14/22 Date of Discharge: Treatments to Date: 3 Cancellations to Date: 3 No Shows to Date: 0 Discharge Status: Patient Elected to Stop Discharge Summary: Adan attended 3 PT visits. He canceled 3 visits due to other health issues and family issues. His symptoms are suggestive for cervicogenic ANGELO however family wants to perform more testing before continuing PT. He is therefore being d/c from PT. Electronically signed by: Beryl Lemus, PT DPT Please sign and return to therapist. Thank you for your referral.
== END 2022-11-27 14:00 | disposition home or self-care (01) ==
LOC: HO.PT 09:00
PROVIDERS: PCP Internal Medicine; Visit Provider Internal Medicine
DX: R42 Dizziness and giddiness (principal)
CPT/HCPCS: 95992; 97110; 97112; 97140; 97161

== ENCOUNTER 2023-01-11 08:19 | Outpatient (AMB) | payer MEDICARE, MEDICAID, SELFPAY ==
--- NOTE | 2023-01-11 08:21 | A.OFFVIS_ITS ---
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 Allergies No Known Allergies [No Known Allergies*] Allergy (Verified 01/11/23 08:23) Medication List - Last Reconciled 01/11/23 by Keara Myles MD aspirin 1 tab PO DAILY blood sugar diagnostic (FreeStyle Lite Strips) As directed dulaglutide (Trulicity) 1.5 mg subcut TU dupilumab (Dupixent) 300 mg subcut Q15D insulin detemir U-100 (Levemir U-100 Insulin) 55 units subcut BEDTIME insulin lispro (Humalog U-100 Insulin) 45 units subcut TID insulin syringe-needle U-100 (BD Insulin Syringe Ultra-Fine) As directed lancets (FreeStyle Lancets) As directed lisinopril 5 mg PO DAILY metformin 1,000 mg PO DAILY omeprazole 20 mg PO DAILY@0630 oxycodone 5 mg PO Q6H PRN rosuvastatin 40 mg PO BEDTIME tamsulosin 0.4 mg PO DAILY 90 days HPI HPI Comments History of Present Illness Details Adan is a 72-year-old male who presents today to the office for a follow-up. 01/11/2023? He is followed today for medication refill. The patient is a Argentine speaking male. His daughter Kala interpreted for him during the visit. He has seen Christian Saavedra on 02/14/2021 for testicular pain. s/p hydrocele repair 01/30. The patient was advised to follow-up in 6 months during that time.? I reviewed the CT abdomen/pelvis results from 09/04/2022 -Urinary tract WNL, no nephrolithiasis or parenchymal lesions. I reviewed the scrotum US results from 03/29/2022 revealed no evidence of testicular torsion or epididymoorchitis.? Small left hydrocele. Small left epididymal head cysts I reviewed PSA results from 02/02/2022 revealed 0.75 ng/mL. He has been taking tamsulosin for the prostate. He is requesting tamsulosin refills today in the office. He is not smoking currently, notes that he used to smoke cigarettes many years ago. No complains of burning with urination. Prostate exam: Prostate was smooth, mildly enlarged. Review of chart: Last visit: 02/14/2021:? Argentine translation provided by daughter Testicle examined Incision healing well Small sutures remain Reassurance provided Follow-up in 6 months Hydrocele Right hydrocele - hydrocelectomy 01/30 Longstanding- Aggravated with persistent pain Imaging consistent with right hydrocele, left epididymal cysts 01/11/2023: Evaluation today?UA? leukocy lorenzo: negative; blood: 2 +; positive for proteinuria; bladder scan PVR: 100 mL. 01/11/2023: Plan: Refilled tamsulosin. Referred to [facility] due to proteinuria. Follow-up office cystoscopy for microscopic hematuria work-up. 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 Review of Systems Const All systems reviewed & are unremarkable except as noted in HPI and below Reports no additional complaints Eyes Reports no additional complaints ENT Reports no additional complaints Card Denies dyspnea Resp Denies cough and Denies dyspnea GI Reports no additional complaints Musc Reports no additional complaints Skin/Breast Denies rash and Denies unusual bruising Neuro Reports no additional complaints Psych Reports no additional complaints Endo Reports no additional complaints Uri/Lymph Reports no additional complaints Aller/Immun Reports no additional complaints Physical Exam Const General: healthy appearing, no acute distress and well developed Orientation/consciousness: patient oriented x3 HEENT Head: Yes normocephalic and Yes atraumatic Eyes Conjunctivae: conjunctivae normal Neck Neck: Yes normal visual inspection Chest Chest palpation & inspection: normal inspection of the chest Resp Effort & Inspection: normal respiratory effort Cardio Rate: regular rate GI Inspection: Yes normal to inspection Palpation (GI): Soft to palpation Other: Prostate Exam: smooth mildly enlarged Skin General skin exam: no rashes or lesions noted Neuro General: patient oriented x3 Extrem General: No pedal edema Psych Appearance: grossly normal Affect: normal affect Office Procedures Post Void Residual Post Residual Void Post Void Residual (PVR): 100 [id number] Void Residual by ultrasound Results AMB Urinalysis, Automated UA Leukoctes 0 Ole/uL Last Edit by LARRY Khan on 01/11/23 08:33 UA Nitrite Negative Last Edit by LARRY Khan on 01/11/23 08:33 UA Urobilinogen 1 mg/dL Last Edit by LARRY Khan on 01/11/23 08:33 UA Protein 300 mg/dL Last Edit by LARRY Khan on 01/11/23 08:33 3+ Nelli Chambers 01/11/23 08:33 UA pH 6.5 Last Edit by LARRY Khan on 01/11/23 08:33 UA Blood 80 Hebert/uL Last Edit by LARRY Khan on 01/11/23 08:33 2+ Nelli Chambers 01/11/23 08:33 UA Specific [place] 1.020 Last Edit by LARRY Khan on 01/11/23 08: 33 UA Ketone Negative Last Edit by LARRY Khan on 01/11/23 08:33 UA Bilirubin 0 mg/dL Last Edit by LARRY Khan on 01/11/23 08:33 UA Glucose 1000 mg/dL Last Edit by LARRY Khan on 01/11/23 08:33 3+ Nelli Chambers 01/11/23 08:33 Results Reviewed Results Reviewed: Laboratory Last Values Urine pH (Auto) 6.5 01/11/23 08:25 Specific [place] (Auto) 1.020 01/11/23 08:25 Urine Protein (Auto) 300 mg/dL 01/11/23 08:25 Glucose (UA)(Auto) 1000 mg/dL 01/11/23 08:25 Urine Ketones (Auto) Negative 01/11/23 08:25 Urine Blood (Auto) 80 [place]bert/uL 01/11/23 08:25 Urine Nitrite (Auto) Negative 01/11/23 08:25 Urine Bilirubin (Auto) 0 mg/dL 01/11/23 08:25 Urine Urobilinogen (Auto) 1 mg/dL 01/11/23 08:25 Leukocyte Esterase (Auto) 0 Ole/uL 01/11/23 08:25 Date of Service: 03/29/22 EXAMINATION: US SCROTUM CLINICAL INFORMATION:? Suprapubic and testicular pain bilaterally for 4 days. COMPARISON:? Scrotal ultrasound 11/11/2020 FINDINGS: RIGHT: Right testicle measures 3.7 x 1.8 x 2.9 cm, volume 9.9 mL. No focal testicular parenchymal lesions are visualized. Spectral Doppler analysis of the arterial and venous flow is normal in the right testis. Right epididymal head was not visualized. No right hydrocele or varicocele is seen. Right epididymal Doppler flow is normal. LEFT: Left testicle measures 3.2 x 2.3 x 2.2 cm, volume 8.4 mL. No focal testicular parenchymal lesions are visualized. Spectral Doppler analysis of the arterial and venous flow is normal in the left testis.? Left epididymal head is normal in size. No left varicocele is seen. Small hydrocele containing low-level echoes. Left epididymal Doppler flow is normal. Couple small anechoic epididymal head cysts are seen measuring 0.5 and 0.6 cm in size. IMPRESSION: 1.? No evidence of testicular torsion or epididymoorchitis. 2.? Small left hydrocele. 3.? Small left epididymal head cysts Date of service: 09/04/2022-- EXAMINATION: CT ABDOMEN AND PELVIS WITH CONTRAST?? CLINICAL INFORMATION: Right lower quadrant pain?? COMPARISON: Ultrasound appendix august 29 09/29/[address] abdomen pelvis 03/29/2022 FINDINGS: LUNG BASES: Bibasilar atelectasis is seen. Triple-vessel coronary calcifications seen. Heart size normal. No pleural effusions. LIVER, GALLBLADDER, AND BILIARY TREE: The liver is mildly enlarged measuring 17.5 cm in cephalocaudad dimension with a suggestion of decreased attenuation raising the possibility of hepatic steatosis. In size, shape, and attenuation. No focal hepatic lesion or biliary ductal dilatation is present. The gallbladder is unremarkable with no evidence of radiopaque gallstones, or obvious pericholecystic inflammatory changes. A tiny phrygian cap is present with some local wall thickening. PANCREAS: Unremarkable.?? SPLEEN: Mild splenomegaly at 12.6 cm.?? ADRENAL GLANDS: Unremarkable.?? KIDNEYS AND URETERS: The kidneys are normal in size, shape, and attenuation. No hydronephrosis, hydroureter, or calculi seen. No perinephric stranding.? ? BLADDER: Unremarkable.?? GASTROINTESTINAL TRACT: Extensive diverticulosis is noted in the sigmoid without evidence of diverticulitis. The small and large bowel are otherwise unremarkable. The appendix is unremarkable.?? ABDOMINAL WALL: No significant hernia is appreciated.?? LYMPH NODES: No retroperitoneal lymphadenopathy. VASCULAR: Marked calcific plaque present in the aorta and iliac vessels along with common femoral arteries. No aneurysms. PELVIC VISCERA: The prostate and seminal vesicles are unremarkable.?? OSSEOUS STRUCTURES: Unremarkable.?? IMPRESSION: 1.? A cause for the patient's abdominal pain has not been found. The appendix is normal. 2.? Incidental note made of mildly enlarged fatty liver with mild splenomegaly. 3.? Extensive sigmoid diverticulosis without diverticulitis Assessment & Plan Assessment & Plan (1) BPH (benign prostatic hyperplasia): Code(s): N40.0 - Benign prostatic hyperplasia without lower urinary tract symptoms (2) Microscopic hematuria: Code(s): R31.29 - Other microscopic hematuria (3) Proteinuria: Code(s): R80.9 - Proteinuria, unspecified (4) History of nicotine use: Code(s): Z87.891 - Personal history of nicotine dependence Plan Refilled tamsulosin. Referred to [facility] due to proteinuria.?? Follow-up office cystoscopy for microscopic hematuria work-up. Orders: Orders AMB Post Void Residual by ultrasound Today N39.8 - Other specified disorders of urinary system AMB Urinalysis Automated Today Z13.9 - Encounter for screening, unspecified Medications: Refilled tamsulosin 0.4 mg PO DAILY 90 days 90 caps 3RF Patient Instructions: The patient had an opportunity to ask questions regarding treatment plan. All questions were answered. Imaging, Laboratory studies and physical exam results were discussed and reviewed in detail. No major barriers to understanding were identified. The patient expressed understanding and agreement with the above treatment plan.? ? ? The patient is aware they should contact our office by phone for worsening of their current condition or the appearance of new symptoms. Compliance is encouraged with any medications and followup testing that is ordered.? ? ? It is a privilege to be allowed the opportunity to participate in the urologic care of your patient. If you have any questions or concerns regarding treatment for the above conditions please do not hesitate to contact me. The office telephone contact is [phone].? ? ? This note is constructed in part using voice recognition software. While every effort has been made to ensure accuracy can runner errors may have been included.? ? ? Yours sincerely,? ? ? Keara Myles MD? Coding Level of Care Code Est Pt Level 4 (65606) Diagnoses BPH (benign prostatic hyperplasia) N40.0 Microscopic hematuria R31.29 Proteinuria R80.9 History of nicotine use Z87.891 CPT Codes Post Residual Void - PVR CPT Code: 09866-Iwdw Void Residual by ultrasound ([id number])
== END 2023-01-11 08:59 | disposition home or self-care (01) ==
PROVIDERS: PCP Internal Medicine; Visit Provider Urology
DX: N40.0 Benign prostatic hyperplasia without lower urinary tract symptoms (principal); R31.29 Other microscopic hematuria; R80.9 Proteinuria, unspecified; Z87.891 Personal history of nicotine dependence; Z13.9 Encounter for screening, unspecified
CPT/HCPCS: 99214

== ENCOUNTER → 2023-01-11 08:19 | Outpatient (BNVA) | payer MEDICARE, MEDICAID, SELFPAY | PROVIDERS: PCP Internal Medicine; Visit Provider Urology | DX: N40.0 Benign prostatic hyperplasia without lower urinary tract symptoms (principal); R31.29 Other microscopic hematuria; R80.9 Proteinuria, unspecified; Z87.891 Personal history of nicotine dependence | CPT/HCPCS: 51798; 81003; 99212 ==

== ENCOUNTER 2023-02-15 10:10 | Outpatient (AMB) | payer MEDICARE, MEDICAID, SELFPAY ==
--- NOTE | 2023-02-15 10:13 | A.OFFVIS_ITS ---
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
--- NOTE | 2023-02-15 10:14 | MHC.OFFVIS ---
Intake Intake Visit Reasons: cysto Allergies No Known Allergies [No Known Allergies*] Allergy (Verified 01/11/23 08:23) HPI HPI Comments History of Present Illness Details Adan is a 72-year-old male who presents today to the office for a follow-up. 02/15/2023? Adan is here with his daughter who interprets for him. PMH IDDM, Htn. He is followed for BPH on tamsulosin, h/o microscopic hematuria. He is followed today for a Cystoscopy procedure. He was last seen by me on 01/11/2023 noted to have proteinuria, discussed referral to [facility], but referral did not go into the chart. Cystoscopy procedure: Consent was obtained for Cystoscopy procedure. Cystoscopy findings: Prostate examination: Mild trabeculations noted, bilobar enlargement of the prostatic urethra and no suspicious bladder lesions noted. Review of charts s/p hydrocele repair 01/30. Imaging: CT abdomen/pelvis results from 09/04/2022 -Urinary tract WNL, no nephrolithiasis or parenchymal lesions. Scrotum US results from 03/29/2022 revealed no evidence of testicular torsion or epididymoorchitis. Small left hydrocele. Small left epididymal head cysts Labs:PSA results from 02/02/2022 revealed 0.75 ng/mL. 01/11/23 - [place]: --Prostate exam: Prostate was smooth, mildly enlarged. 02/15/2023: Plan: Continue tamsulosin 0.4 mg daily. Follow-up in 6 months PSA prior. 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 Review of Systems Const All systems reviewed & are unremarkable except as noted in HPI and below Reports no additional complaints Eyes Reports no additional complaints ENT Reports no additional complaints Card Denies dyspnea Resp Denies cough and Denies dyspnea GI Reports no additional complaints Musc Reports no additional complaints Skin/Breast Denies rash and Denies unusual bruising Neuro Reports no additional complaints Psych Reports no additional complaints Endo Reports no additional complaints Uri/Lymph Reports no additional complaints Aller/Immun Reports no additional complaints Office Procedures Cystoscopy Consent Discussed risk and benefit or proposed procedure with the patient. Information consent for procedure given to the patient. Discussed technical aspects, risks, benefits and alternatives in full. Addressed all of the patient's questions and concerns regarding the procedure. The patient demonstrated knowledge and understanding. They wish to proceed with this procedure. Preparation The patient was prepped in the usual manner. A priming powder premix blender was present and in the room. Genitalia was prepped with betadine solution in a sterile manner. Lidocaine Jelly 2% was placed into the urethra and 16Fr flexible Olympus cystoscope was inserted into the meatus after adequate lubrication. Procedure Time out per protocol performed. Bladder Inspection Bladder Inspection: The bladder was inspected in its entirety with utilization retroflexion displaying: Tumor(s): none visualized Trabeculation: mild Mucosal Erthema: N/A Orifices: normal shape and position Urethra: normal Cystoscopy findings: prostatic urethra bilobar enlargement, bulbous urethra WNL, no suspicious bladder lesions visualized [id number] DISPOSABLE SCOPE URO-G FLEXIBLE SCOPE Procedure code (CPT) selection complete Office Meds lidocaine HCl 2 % mucosal jelly in applicator Performing Provider: Keara Myles MD Performing Location: [facility] [place] [facility] Administered by: Indiana Chinchilla RN on 02/15/23 10:52 Dose Route Admin Location Dispensed Lot Number Expiration Date [facility] [place] Cnp 10 mL intra-urethral 20 mL naproxen 500 mg tablet Performing Provider: Keara Myles MD Performing Location: [facility] [place] [facility] Administered by: Indiana Chinchilla RN on 02/15/23 10:52 Dose Route Admin Location Dispensed Lot Number Expiration Date [facility] [place] Cnp 500 mg PO 1 tab ciprofloxacin HCl 500 mg tablet Performing Provider: Keara Myles MD Performing Location: [facility] [place] [facility] Administered by: Indiana Chinchilla RN on 02/15/23 10:52 Dose Route Admin Location Dispensed Lot Number Expiration Date [facility] Cnp 500 mg PO 1 tab Results AMB Urinalysis, Automated UA Leukoctes 0 Ole/uL Last Edit by LARRY Khan on 02/15/23 10:51 UA Nitrite Negative Last Edit by Nelli Chambers Sunitha on 02/15/23 10:51 UA Urobilinogen 0.2 mg/dL Last Edit by Nelli Chambers Sunitha on 02/15/23 10:51 UA Protein 30 mg/dL Last Edit by LARRY Khan on 02/15/23 10:51 1+ Nelli Chambers 02/15/23 10:51 UA pH 7.0 Last Edit by Nelli Chambers Sunitha on 02/15/23 10:51 UA Blood 10 Hebert/uL Last Edit by LARRY Khan on 02/15/23 10:51 UA Specific [place] 1.015 Last Edit by Nelli Chambers [facility] on 02/15/23 10:51 UA Ketone Negative Last Edit by LARRY Khan on 02/15/23 10:51 UA Bilirubin 0 mg/dL Last Edit by Nelli Chambers [facility] on 02/15/23 10:51 UA Glucose 1000 mg/dL Last Edit by Nelli Chambers Sunitha on 02/15/23 10:51 3+ Nelli Chambers 02/15/23 10:51 Results Reviewed Results Reviewed: Laboratory Last Values Urine pH (Auto) 7.0 02/15/23 10:49 Specific [place] (Auto) 1.015 02/15/23 10:49 Urine Protein (Auto) 30 mg/dL 02/15/23 10:49 Glucose (UA)(Auto) 1000 mg/dL 02/15/23 10:49 Urine Ketones (Auto) Negative 02/15/23 10:49 Urine Blood (Auto) 10 Hebert/uL 02/15/23 10:49 Urine Nitrite (Auto) Negative 02/15/23 10:49 Urine Bilirubin (Auto) 0 mg/dL 02/15/23 10:49 Urine Urobilinogen (Auto) 0.2 mg/dL 02/15/23 10:49 Leukocyte Esterase (Auto) 0 Ole/uL 02/15/23 10:49 Assessment & Plan Assessment & Plan (1) BPH (benign prostatic hyperplasia): Code(s): N40.0 - Benign prostatic hyperplasia without lower urinary tract symptoms (2) Microscopic hematuria: Code(s): R31.29 - Other microscopic hematuria (3) Proteinuria: Code(s): R80.9 - Proteinuria, unspecified (4) History of nicotine use: Code(s): Z87.891 - Personal history of nicotine dependence Plan Continue tamsulosin 0.4 mg daily. Follow-up in 6 months PSA prior. refer to Nephrology for proteinuria Orders: Orders AMB Urinalysis Automated Today Z13.9 - Encounter for screening, unspecified AMB Cystoscopy Today N40.0 - Benign prostatic hyperplasia without lower urinary tract symptoms Patient Instructions: The patient had an opportunity to ask questions regarding treatment plan. All questions were answered. Imaging, Laboratory studies and physical exam results were discussed and reviewed in detail. No major barriers to understanding were identified. The patient expressed understanding and agreement with the above treatment plan. The patient is aware they should contact our office by phone for worsening of their current condition or the appearance of new symptoms. Compliance is encouraged with any medications and followup testing that is ordered. It is a privilege to be allowed the opportunity to participate in the urologic care of your patient. If you have any questions or concerns regarding treatment for the above conditions please do not hesitate to contact me. The office telephone contact is [phone]. This note is constructed in part using voice recognition software. While every effort has been made to ensure accuracy concrete block maker errors may have been included. Yours sincerely, Keara Myles MD Coding Level of Care Code Procedure Only Diagnoses BPH (benign prostatic hyperplasia) N40.0 Microscopic hematuria R31.29 Proteinuria R80.9 History of nicotine use Z87.891 CPT Codes Cystoscopy - CPT: 04002-Evonkrqtoj ([id number])
== END 2023-02-15 11:33 | disposition home or self-care (01) ==
PROVIDERS: PCP Internal Medicine; Visit Provider Urology
DX: R31.29 Other microscopic hematuria (principal); R80.9 Proteinuria, unspecified; Z87.891 Personal history of nicotine dependence; Z13.9 Encounter for screening, unspecified
CPT/HCPCS: 52000

== ENCOUNTER → 2023-02-15 10:10 | Outpatient (BNVA) | payer MEDICARE, MEDICAID, SELFPAY | PROVIDERS: PCP Internal Medicine; Visit Provider Urology | DX: R31.29 Other microscopic hematuria (principal); N40.0 Benign prostatic hyperplasia without lower urinary tract symptoms; R80.9 Proteinuria, unspecified; Z87.891 Personal history of nicotine dependence | CPT/HCPCS: 52000; 81003 ==

== ENCOUNTER 2023-05-30 06:59 | Emergency (ER) | payer MEDICARE, MEDICAID, SELFPAY ==
--- NOTE | ~2023-05-30 | XR_ITS ---
EXAMINATION: XR CHEST CLINICAL INFORMATION: Pain COMPARISON: January 2021 TECHNIQUE: Frontal view of the chest was obtained. FINDINGS: No significant abnormality is noted involving the heart, lungs, mediastinum, bony thorax or soft tissues. Density over the right first costochondral junction stable likely bony. XR/XR chest 1V IMPRESSION: Unremarkable examination.
[2023-05-30 07:09] VITALS: BMI 26.1
--- NOTE | 2023-05-30 07:10 | ECG_ITS ---
Test Reason : CHEST PAIN Blood Pressure : / mmHG Vent. Rate : 096 BPM Atrial Rate : 096 BPM P-R Int : 140 ms QRS Dur : 088 ms QT Int : 328 ms P-R-T Axes : 071 049 073 degrees QTc Int : 414 ms Normal sinus rhythm Normal ECG When compared with ECG of 16-JAN-2021 11:37, No significant change was found Referred By: Clif Hahn Electronically Signed By:Shamir Lozano
[2023-05-30 07:26] LABS: MANUAL DIFF FLAG NO
[2023-05-30 07:32] LABS: Basophils Percent Auto 0.2 % (0-2); Hematocrit 41.4 % (42.0-52.0); Hemoglobin 14.1 g/dl (14.0-18.0); Imm Gran Abs Auto 0.01 X10*3/uL (0.00-0.03); Imm Gran Pct Auto 0.2 % (0.0-0.4); Lymphocytes Absolute Auto 1.5 X10*3/uL (1.2-4.9); Lymphocytes Percent Auto 34.7 % (20-40); Mean Corpuscular HGB Conc 34.1 g/dl (31.0-36.0); Mean Corpuscular Hemoglobin 29.7 pg (27.0-33.0); Mean Corpuscular Volume 87.3 fL (80.0-98.0); Mean Platelet Volume 9.3 fL (9.4-12.4); Monocytes Absolute Auto 0.7 X10*3/uL (0.1-1.2); Monocytes Percent Auto 17.4 % (2-11); Neutrophils Percent Auto 47.5 % (45-73); Platelet Count 175 X10*3/uL (160-400); Red Blood Count 4.74 X10*6/uL (4.60-5.80); Red Cell Distribution Width 13.4 % (11.0-16.0); White Blood Count 4.3 X10*3/uL (4.8-10.8)
[2023-05-30 07:33] LABS: INTERNATIONAL NORM RATIO 1.1 (0.9-1.1); Prothrombin Time 13.5 SEC (11.1-13.3)
[2023-05-30 07:44] LABS: Alanine Aminotransferase 14 U/L (0-40); Albumin Level 4.1 g/dL (3.5-5.0); Alkaline Phosphatase 89 U/L (39-117); Anion Gap 12 (12-20); Aspartate Amino Transferase 26 U/L (5-37); Bilirubin Direct 0.2 mg/dL (0.0-0.5); Bilirubin Total 0.4 mg/dL (0.0-1.0); Blood Urea Nitrogen 18 mg/dL (9-16); Carbon Dioxide 23 mmol/L (22-29); Chloride 102 mmol/L (96-108); Creatinine Clr Calc Pharmacy 45.9; Estimated Glomerular Filt Rate 52; Glucose Random 297 mg/dL (60-115); Sodium 133 mmol/L (135-145); Total Protein 7.7 g/dL (6.5-8.0)
[2023-05-30 07:51] LABS: COVID-19 Test Negative (Negative); IDNOW Serial# 152EDE1D; Troponin-I High Sensitivity 3.5 ng/L (<3.5-35.0)
--- NOTE | 2023-05-30 08:17 | ED_ITS ---
HPI - General Adult General Chief complaint: General Medical Stated complaint: Chest pain/fevers/blurred vision Time Seen by Provider: 05/30/23 07:40 Source: patient and family Mode of arrival: ambulatory Limitations: no limitations History of Present Illness HPI narrative: This is a 72 years old male presented to the emergency department complaining of cough congestion, chest pain with cough, symptoms have been ongoing for about 3 days. He is here with a daughter. He has history of diabetes hypercholesterolemia. Denies any exertional chest pain and chest pain is present with cough. Onset (ago): day(s) (3) Location: chest Radiation: non-radiation Severity: moderate Quality: burning Pain Consistency: now resolved Relieving factors: none Exacerbating factors: other (Cough) Associated symptoms: denies other symptoms Related Data Home Medications Medication Instructions Recorded Confirmed metformin 1,000 mg tablet 1,000 mg PO DAILY 03/01/20 01/11/23 insulin detemir U-100 100 unit/mL 55 unit subcut BEDTIME 12/05/20 01/11/23 subcutaneous solution (Levemir U-100 Insulin) insulin syringe-needle U-100 0.5 #10 ea 12/05/20 01/11/23 mL 30 gauge x 1/2 (BD Insulin Syringe Ultra-Fine) lisinopril 5 mg tablet 5 mg PO DAILY 12/05/20 01/11/23 rosuvastatin 40 mg tablet 40 mg PO BEDTIME 12/05/20 01/11/23 blood sugar diagnostic (FreeStyle #10 ea 02/14/21 01/11/23 Lite Strips) lancets 28 gauge (FreeStyle #100 ea 02/14/21 01/11/23 Lancets) dulaglutide 1.5 mg/0.5 mL 1.5 mg subcut TU 09/04/22 01/11/23 subcutaneous pen injector (Trulicity) dupilumab 300 mg/2 mL subcutaneous 300 mg subcut Q15D 09/04/22 01/11/23 pen injector (Dupixent) insulin lispro 100 unit/mL 45 unit subcut TID 09/04/22 01/11/23 subcutaneous solution (Humalog U-100 Insulin) omeprazole 20 mg capsule,delayed 20 mg PO DAILY@0630 09/04/22 01/11/23 release aspirin 81 mg chewable tablet 1 tab PO DAILY 09/15/22 01/11/23 Previous Rx's Medication Instructions Recorded oxycodone 5 mg tablet 5 mg PO Q6H PRN pain (scale score 09/05/22 7-10) #15 tabs tamsulosin 0.4 mg capsule 0.4 mg PO DAILY 90 days #90 caps 01/11/23 Allergies Allergy/AdvReac Type Severity Reaction Status Date / Time No Known Allergies Allergy Verified 05/30/23 08:18 [No Known Allergies*] Review of Systems 2 Constitutional: Constitutional: Reports no additional constitutional complaints Eyes: Eyes: Reports no additional eye complaints Cardiovascular: Cardiovascular: Reports no additional cardiovascular complaints Respiratory: Respiratory: Reports chest congestion and Reports cough [facility] Past Medical History Attestation statement: The following information was validated with the patient. [facility] Narrative: Diabetes hypercholesterolemia Medical History Abdominal pain, RLQ History of COVID-19 Anxiety Arthritis HTN (hypertension) High cholesterol Diabetes Surgical History History of testicular surgery H/O colonoscopy History of esophagogastroduodenoscopy (EGD) Family History Family History Father Brain cancer Mother Brain cancer Social History Social History Alcohol intake: never Patient Tobacco Use Status: Former Tobacco user Smoked in Last 30 Days: No Second Hand Smoke Exposure: No Use of substances other than those prescribed or required for medical reasons: No Advance Directives: Yes Advance Directives Information Provided: No Advance Directives on File: No Current occupational status: disabled 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 Physical Exam ED Vital Signs: Vital Signs - 24 hr 05/30/23 10:47 Temperature 98.0 F Pulse Rate 91 Respiratory Rate 16 Blood Pressure 107/59 L Pulse Oximetry 95 Oxygen Delivery Method Room Air BMI result Body Mass Index 25.3 Const General: cooperative Nutritional Appearance: average body habitus Orientation/consciousness: patient oriented x3 Limitations: no limitations HENMT Head: Yes normal to inspection Ears: hearing grossly normal bilaterally General nose exam: Normal external nose present Face and sinus: Yes normal facial exam Mouth: Normal oral and palatal mucosa present Throat: Yes posterior oropharynx normal Neck Neck: Yes normal visual inspection and Yes full ROM Thyroid: Thyroid normal Chest Chest palpation & inspection: normal inspection of the chest Resp Effort & Inspection: normal respiratory effort Auscultation: rhonchi Cardio Jugular venous distension: no JVD Rate: regular rate Rhythm: regular rhythm GI Inspection: Yes normal to inspection Palpation (GI): Soft to palpation, not firm and nontender Percussion: Yes normal to percussion Skin General skin exam: no rashes or lesions noted and elasticity normal Lesions: no lesions Rashes: no rashes Trauma: no lacerations or abrasions Wounds: no wounds Neuro General: patient oriented x3 Extrem General: Yes normal to inspection Course Reevaluation(s) Reevaluation #1: Patient is feeling better troponin x2 is negative, chest x-ray is normal he is flu positive, he has been 3 days though so therefore I do not think Tamiflu will help Time: 10:27 Medications Administered Discontinued Medications Generic Name Dose Route Start Last Admin Trade Name Freq PRN Reason Stop Dose Admin Sodium Chloride 1,000 mls @ 999 mls/hr 05/30/23 09:00 05/30/23 11:05 Ns IVCONT 05/30/23 10:00 Infused .Q1H1M [place] Infusion Ibuprofen 800 mg 05/30/23 10:28 05/30/23 10:46 Ibuprofen 800 Mg Tablet PO 05/30/23 10:29 800 mg ONCE ONE Administration Medical Decision Making Medical Decision Making [facility] Narrative: Patient presented with chest pain with cough for about 3 days we get chest x-ray EKG labs including high sensitive troponin Differential Diagnosis Differential Diagnoses: The differential diagnosis associated with the presentation includes ACS/bronchitis/pneumonia/viral syndrome Admission/Observation Consideration of admission/observation: Escalation of care including admission/observation considered Lab Data [facility] Lab Attestation statement: I reviewed the patient's lab results. 05/30/23 07:22 05/30/23 07:22 Labs: Lab Results 05/30/23 05/30/23 05/30/23 Range/Units 07:22 08:20 09:06 WBC 4.3 L (4.8-10.8) X10*3/uL RBC 4.74 (4.60-5.80) X10*6/uL Hgb 14.1 (14.0-18.0) g/dl Hct 41.4 L (42.0-52.0) % MCV 87.3 (80.0-98.0) fL MCH 29.7 (27.0-33.0) pg MCHC 34.1 (31.0-36.0) g/dl RDW 13.4 (11.0-16.0) % Plt Count 175 (160-400) X10*3/uL MPV 9.3 L (9.4-12.4) fL Immature Gran % (Auto) 0.2 (0.0-0.4) % Neut % (Auto) 47.5 (45-73) % Lymph % (Auto) 34.7 (20-40) % [place] % (Auto) 17.4 H (2-11) % Eos % (Auto) 0.0 (0-4) % Baso % (Auto) 0.2 (0-2) % Lymph # (Auto) 1.5 (1.2-4.9) X10*3/uL [place] # (Auto) 0.7 (0.1-1.2) X10*3/uL Eos # (Auto) 0.0 (0.0-0.4) X10*3/uL Baso # (Auto) 0.0 (0.0-0.2) X10*3/uL Abs Immat Gran (auto) 0.01 (0.00-0.03) X10*3/uL Absolute Neuts (auto) 2.0 (2.0-8.3) x10*3/uL Absolute Nucleated RBC 0.000 (0.0-0.012) X10*3/uL Nucleated RBC % (auto) 0.0 (0.0-0.2) /100WBC PT 13.5 H (11.1-13.3) SEC INR 1.1 (0.9-1.1) Sodium 133 L (135-145) mmol/L Potassium 4.0 (3.3-5.1) mmol/L Chloride 102 (96-108) mmol/L Carbon Dioxide 23 (22-29) mmol/L Anion Gap 12 (12-20) BUN 18 H (9-16) mg/dL Creatinine 1.35 (0.5-1.4) mg/dL Estim Creat Clear Calc 45.9 Estimated GFR 52 Random Glucose 297 H (60-115) mg/dL Calcium 9.0 (8.4-10.2) mg/dL Total Bilirubin 0.4 (0.0-1.0) mg/dL Direct Bilirubin 0.2 (0.0-0.5) mg/dL AST 26 (5-37) U/L ALT 14 (0-40) U/L Alkaline Phosphatase 89 (39-117) U/L Troponin I High Sens 3.5 3.5 (<3.5-35.0) ng/L Total Protein 7.7 (6.5-8.0) g/dL Albumin 4.1 (3.5-5.0) g/dL COVID-19 (MYRNA) Negative (Negative) COVID-19 Clin Com See Note Influenza Type A (PCR) POSITIVE A (Negative) Influenza Type B (PCR) NEGATIVE (Negative) RSV RNA Qual (PCR) NEGATIVE (Negative) SARS-CoV-2 RNA (RT-PCR) NEGATIVE (Negative) Independent Interpretation I performed an independent interpretation of an: EKG and Plain X-Ray Interpretation: Normal sinus rhythm rate [address]-T changes Radiology Impression Discussion of test interpretation with radiology: I have reviewed the radiologist's reading. Radiologist Impression: EXAMINATION: XR CHEST CLINICAL INFORMATION: Pain COMPARISON: January 2021 TECHNIQUE: Frontal view of the chest was obtained. FINDINGS: No significant abnormality is noted involving the heart, lungs, mediastinum, bony thorax or soft tissues. Density over the right first costochondral junction stable likely bony. XR/XR chest 1V IMPRESSION: Unremarkable examination. Dictated By: Mariana Patel MD Signed By: <Electronically signed by Mariana Patel MD in OV> 05/30/23 0851 DD/ 0746 TD/TT: Transcripti Independent Historian Clinical information obtained from an independent historian. History obtained from or confirmed by: Spouse Discharge Plan Discharge Clinical Impression: Influenza Patient Disposition: Home, Self-Care Instructions: Influenza (DC) Prescriptions: No Action omeprazole 20 mg capsule,delayed release(DR/EC) 20 mg PO DAILY@0630 Trulicity 1.5 mg/0.5 mL pen injector 1.5 mg subcut TU Dupixent Pen 300 mg/2 mL pen injector 300 mg subcut Q15D insulin lispro [Humalog U-100 Insulin] 100 unit/mL Solution 45 unit SUBCUT TID oxycodone 5 mg tablet 5 mg PO Q6H PRN (Reason: pain (scale score 7-10)) Qty: 15 0RF Rx Instructions: Partial Fill upon patient request. metformin 1,000 mg tablet 1,000 mg PO DAILY (DME) insulin syringe-needle U-100 [BD Insulin Syringe Ultra-Fine] 0.5 mL 30 gauge x 1/2 syringe See Rx Instructions .ROUTE .MEDSUPPLY Qty: 10 Rx Instructions: As directed Levemir U-100 Insulin 100 unit/mL solution 55 unit subcut BEDTIME rosuvastatin 40 mg tablet 40 mg PO BEDTIME lisinopril 5 mg tablet 5 mg PO DAILY (DME) lancets [FreeStyle Lancets] 28 gauge misc See Rx Instructions topical TID Qty: 100 Rx Instructions: As directed (DME) FreeStyle Lite Strips Strip See Rx Instructions Not Applicable TID Qty: 10 Rx Instructions: As directed aspirin 81 mg tablet,chewable 1 tab PO DAILY tamsulosin 0.4 mg capsule 0.4 mg PO DAILY 90 Days Qty: 90 3RF Interventions: ED Discharge Assessment Last Done: 05/30/23 11:05 Discharge Date/Time: 05/30/23 11:06
[2023-05-30 08:18] VITALS: BP 101/71; PULSE 92; RESP 16; TEMP 37.1; O2SAT 96; BMI 25.3
--- NOTE | 2023-05-30 08:25 | PC.NURSE ---
a&ox4. vss and up to date. pt verbalizing upper respiratory sx, increased weakness, decreased PO intake x 4 days. pt currently afebrile. pt c/o 6/10 nonradiating chest pain that is induced w/ cough/deep breathing. no sob/wob noted. swab obtained/sent to lab. respirations even and unlabored. pt waiting for chest xray results at this time. family bedside. call wilson placed within reach.
[2023-05-30 09:03] LABS: Influenza A PCR POSITIVE (Negative); Influenza B PCR NEGATIVE (Negative); Resp Syncy Virus RNA Qual PCR NEGATIVE (Negative); SARS COV2 PCR INHOUSE NEGATIVE (Negative)
[2023-05-30] MEDS: 0.9 % Sodium Chloride 1,000 ML 999 ML IVCONT (09:13)
--- NOTE | 2023-05-30 09:15 | PC.NURSE ---
22gIV placed in the right hand. repeat troponin obtained/sent to lab. IVF administered per provider.
[2023-05-30 09:29] LABS: Troponin-I High Sensitivity 3.5 ng/L (<3.5-35.0)
[2023-05-30] MEDS: Ibuprofen 800 MG TABLET PO (10:46)
[2023-05-30 10:47] VITALS: BP 107/59; PULSE 91; RESP 16; TEMP 36.7; O2SAT 95
--- NOTE | 2023-05-30 10:48 | PC.NURSE ---
vss and up to date. pt denies pain at this time. medication administered per provider order. will d/c pt when IVF completely infuse per provider order.
== END 2023-05-30 11:06 | disposition home or self-care (01) ==
PROVIDERS: Emergency Provider Emergency Medicine; PCP Internal Medicine
DX: J10.1 Influenza due to other identified influenza virus with other respiratory manifestations (principal); R07.89 Other chest pain; R50.9 Fever, unspecified; H53.8 Other visual disturbances; E11.9 Type 2 diabetes mellitus without complications; Z79.899 Other long term (current) drug therapy; Z79.4 Long term (current) use of insulin; Z11.52 Encounter for screening for COVID-19; Z20.822 Contact with and (suspected) exposure to COVID-19; Z87.891 Personal history of nicotine dependence
CPT/HCPCS: 0241U; 36415; 71045; 80048; 80076; 84484; 85025; 85610; 87635; 93005; 96360; 96361; 99284; 99285

== ENCOUNTER → 2023-05-30 07:10 | Outpatient (BNV) | payer MEDICARE, MEDICAID, SELFPAY | PROVIDERS: Emergency Provider Emergency Medicine; PCP Internal Medicine; Visit Provider Internal Medicine Cardiovascular Disease | DX: R07.9 Chest pain, unspecified (principal) | CPT/HCPCS: 93010 ==

== ENCOUNTER 2023-06-07 08:20 | Outpatient (REF) | payer MEDICARE, MEDICAID, SELFPAY ==
[2023-06-07 08:41] LABS: MANUAL DIFF FLAG NO
[2023-06-07 09:13] LABS: Basophils Percent Auto 0.7 % (0-2); Eosinophils Absolute Auto 0.1 X10*3/uL (0.0-0.4); Eosinophils Percent Auto 1.3 % (0-4); Hematocrit 36.6 % (42.0-52.0); Hemoglobin 12.1 g/dl (14.0-18.0); Imm Gran Abs Auto 0.02 X10*3/uL (0.00-0.03); Imm Gran Pct Auto 0.4 % (0.0-0.4); Lymphocytes Absolute Auto 1.6 X10*3/uL (1.2-4.9); Lymphocytes Percent Auto 35.4 % (20-40); Mean Corpuscular HGB Conc 33.1 g/dl (31.0-36.0); Mean Corpuscular Hemoglobin 29.3 pg (27.0-33.0); Mean Corpuscular Volume 88.6 fL (80.0-98.0); Mean Platelet Volume 9.1 fL (9.4-12.4); Monocytes Absolute Auto 0.5 X10*3/uL (0.1-1.2); Monocytes Percent Auto 10.5 % (2-11); Neutrophils Absolute Auto 2.4 x10*3/uL (2.0-8.3); Neutrophils Percent Auto 51.7 % (45-73); Platelet Count 292 X10*3/uL (160-400); Red Blood Count 4.13 X10*6/uL (4.60-5.80); Red Cell Distribution Width 13.2 % (11.0-16.0); White Blood Count 4.6 X10*3/uL (4.8-10.8)
[2023-06-07 09:25] LABS: Estimated Average Glucose 252 mg/dL; Hemoglobin A1c % 10.4 % (<6.0)
[2023-06-07 10:00] LABS: Alanine Aminotransferase 16 U/L (0-40); Albumin Level 3.9 g/dL (3.5-5.0); Alkaline Phosphatase 77 U/L (39-117); Anion Gap 11 (12-20); Aspartate Amino Transferase 21 U/L (5-37); Bilirubin Total 0.3 mg/dL (0.0-1.0); Blood Urea Nitrogen 13 mg/dL (9-16); Calcium 9.5 mg/dL (8.4-10.2); Carbon Dioxide 26 mmol/L (22-29); Chloride 105 mmol/L (96-108); Estimated Glomerular Filt Rate > 60; Glucose Random 179 mg/dL (60-115); Potassium 4.4 mmol/L (3.3-5.1); Sodium 138 mmol/L (135-145); Total Protein 7.4 g/dL (6.5-8.0)
[2023-06-07 10:03] LABS: Ferritin 192 ng/mL (20-250)
[2023-06-07 10:37] LABS: Folate 9.8 ng/mL (> or = 4.0); Vitamin B12 440 pg/mL (200-900)
== END 2023-06-07 08:21 | disposition home or self-care (01) ==
LOC: HO.LAB 08:20
PROVIDERS: PCP Internal Medicine; Visit Provider Internal Medicine
DX: E11.65 Type 2 diabetes mellitus with hyperglycemia (principal); D64.9 Anemia, unspecified
CPT/HCPCS: 36415; 80053; 82607; 82728; 82746; 83036; 85025

== ENCOUNTER 2023-08-10 07:36 | Outpatient (REF) | payer MEDICARE, MEDICAID, SELFPAY ==
[2023-08-10 09:20] LABS: PSA,Total (Free>4and<10) 5.99 ng/mL (0.00-4.00)
[2023-08-12 12:48] LABS: Free Prostate Spec Ag 1.4 ng/mL; Percent Free Prostate Spec Ag 23 % (calc) (>25)
== END 2023-08-10 07:37 | disposition home or self-care (01) ==
LOC: HO.LAB 07:36
PROVIDERS: PCP Internal Medicine; Visit Provider Urology
DX: N40.0 Benign prostatic hyperplasia without lower urinary tract symptoms (principal); Z12.5 Encounter for screening for malignant neoplasm of prostate
CPT/HCPCS: 36415; 84153; 84154

== ENCOUNTER 2023-08-16 09:02 | Outpatient (AMB) | payer MEDICARE, MEDICAID, SELFPAY ==
--- NOTE | 2023-08-16 09:07 | A.OFFVIS_ITS ---
Intake Visit Reasons: 6m/PSA Intake Note: Patient presents today for a follow-up on PSA Results: Meds- Tamsulosin Allergies to Antibiotic- No Known Allergies Blood Thinner- Aspirin Post Void Residual: 49 mL Prescription Clerk Lenses Required: No Accompanied by: Daughter Allergies No Known Allergies [No Known Allergies*] Allergy (Verified 08/16/23 09:16) HPI Comments Details: 08/16/23--Adan is a 72-year-old male who presents today to the office for a follow-up. He is followed for BPH on tamsulosin, h/o microscopic hematuria. Workup for microscopic hematuria noted in enlarged prostate was negative for this suspicious urinary tract tumors. I have reviewed PSA results with the patient and his daughter who interprets for him. PSA 08/10/2023-5.99 ng/mL. He has not seen Nephrology. Plan to continue tamsulosin. Review of charts 02/15/2023? Adan is here with his daughter who interprets for him. PMH IDDM, Htn. He is followed for BPH on tamsulosin, h/o microscopic hematuria. He is followed today for a Cystoscopy procedure. He was last seen by me on 01/11/2023 noted to have proteinuria, discussed referral to Educational/Development Assistant, but referral did not go into the chart. Cystoscopy procedure: Consent was obtained for Cystoscopy procedure. Cystoscopy findings: Prostate examination: Mild trabeculations noted, bilobar enlargement of the prostatic urethra and no suspicious bladder lesions noted. s/p hydrocele repair 01/30. Imaging: CT abdomen/pelvis results from 09/04/2022 -Urinary tract WNL, no nephrolithiasis or parenchymal lesions. Scrotum US results from 03/29/2022 revealed no evidence of testicular torsion or epididymoorchitis. Small left hydrocele. Small left epididymal head cysts Labs:PSA results from 02/02/2022 revealed 0.75 ng/mL. 01/11/23 - [place]: --Prostate exam: Prostate was smooth, mildly enlarged. 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 Review of Systems Const All systems reviewed & are unremarkable except as noted in HPI and below Reports no additional complaints Eyes Reports no additional complaints ENT Reports no additional complaints Card Reports no additional complaints Resp Reports no additional complaints GI Reports no additional complaints Reports as per HPI Musc Reports no additional complaints Skin/Breast Reports system reviewed and no additional complaints, except as documented Neuro Reports no additional complaints Psych Reports no additional complaints Endo Reports no additional complaints Uri/Lymph Reports no additional complaints Aller/Immun Reports no additional complaints Results AMB Urinalysis, Automated UA Leukoctes 0 Ole/uL Last Edit by LARRY Khan on 08/16/23 09:18 UA Nitrite Negative Last Edit by LARRY Khan on 08/16/23 09:18 UA Urobilinogen 0.2 mg/dL Last Edit by LARRY Khan on 08/16/23 09:1 8 UA Protein 30 mg/dL Last Edit by LARRY Khan on 08/16/23 09:18 1+ Nelli Chambers 08/16/23 09:18 UA pH 7.5 Last Edit by LARRY Khan on 08/16/23 09:18 UA Blood 25 Hebert/uL Last Edit by LARRY Khan on 08/16/23 09:18 UA Specific [place] 1.015 Last Edit by LARRY Khan on 08/16/23 09: 18 UA Ketone Negative Last Edit by LARRY Khan on 08/16/23 09:18 UA Bilirubin 0 mg/dL Last Edit by LARRY Khan on 08/16/23 09:18 UA Glucose 1000 mg/dL Last Edit by LARRY Khan on 08/16/23 09:18 3+ Nelli Chambers 08/16/23 09:18 Results Reviewed Results Reviewed: Laboratory Last Values Urine pH (Auto) 7.5 08/16/23 09:16 Specific [place] (Auto) 1.015 08/16/23 09:16 Urine Protein (Auto) 30 mg/dL 08/16/23 09:16 Glucose (UA)(Auto) 1000 mg/dL 08/16/23 09:16 Urine Ketones (Auto) Negative 08/16/23 09:16 Urine Blood (Auto) 25 [place]/uL 08/16/23 09:16 Urine Nitrite (Auto) Negative 08/16/23 09:16 Urine Bilirubin (Auto) 0 mg/dL 08/16/23 09:16 Urine Urobilinogen (Auto) 0.2 mg/dL 08/16/23 09:16 Leukocyte Esterase (Auto) 0 Ole/uL 08/16/23 09:16 Date of service: 09/04/2022-- EXAMINATION: CT ABDOMEN AND PELVIS WITH CONTRAST?? CLINICAL INFORMATION: Right lower quadrant pain?? COMPARISON: Ultrasound appendix august 29 09/29/[address] abdomen pelvis 03/29/2022 FINDINGS: LUNG BASES: Bibasilar atelectasis is seen. Triple-vessel coronary calcifications seen. Heart size normal. No pleural effusions. LIVER, GALLBLADDER, AND BILIARY TREE: The liver is mildly enlarged measuring 17.5 cm in cephalocaudad dimension with a suggestion of decreased attenuation raising the possibility of hepatic steatosis. In size, shape, and attenuation. No focal hepatic lesion or biliary ductal dilatation is present. The gallbladder is unremarkable with no evidence of radiopaque gallstones, or obvious pericholecystic inflammatory changes. A tiny phrygian cap is present with some local wall thickening. PANCREAS: Unremarkable.?? SPLEEN: Mild splenomegaly at 12.6 cm.?? ADRENAL GLANDS: Unremarkable.?? KIDNEYS AND URETERS: The kidneys are normal in size, shape, and attenuation. No hydronephrosis, hydroureter, or calculi seen. No perinephric stranding.? ? BLADDER: Unremarkable.?? GASTROINTESTINAL TRACT: Extensive diverticulosis is noted in the sigmoid without evidence of diverticulitis. The small and large bowel are otherwise unremarkable. The appendix is unremarkable.?? ABDOMINAL WALL: No significant hernia is appreciated.?? LYMPH NODES: No retroperitoneal lymphadenopathy. VASCULAR: Marked calcific plaque present in the aorta and iliac vessels along with common femoral arteries. No aneurysms. PELVIC VISCERA: The prostate and seminal vesicles are unremarkable.?? OSSEOUS STRUCTURES: Unremarkable.?? IMPRESSION: 1.? A cause for the patient's abdominal pain has not been found. The appendix is normal. 2.? Incidental note made of mildly enlarged fatty liver with mild splenomegaly. 3.? Extensive sigmoid diverticulosis without diverticulitis Date of Service: 03/29/22 EXAMINATION: US SCROTUM CLINICAL INFORMATION:? Suprapubic and testicular pain bilaterally for 4 days. COMPARISON:? Scrotal ultrasound 11/11/2020 FINDINGS: RIGHT: Right testicle measures 3.7 x 1.8 x 2.9 cm, volume 9.9 mL. No focal testicular parenchymal lesions are visualized. Spectral Doppler analysis of the arterial and venous flow is normal in the right testis. Right epididymal head was not visualized. No right hydrocele or varicocele is seen. Right epididymal Doppler flow is normal. LEFT: Left testicle measures 3.2 x 2.3 x 2.2 cm, volume 8.4 mL. No focal testicular parenchymal lesions are visualized. Spectral Doppler analysis of the arterial and venous flow is normal in the left testis.? Left epididymal head is normal in size. No left varicocele is seen. Small hydrocele containing low-level echoes. Left epididymal Doppler flow is normal. Couple small anechoic epididymal head cysts are seen measuring 0.5 and 0.6 cm in size. IMPRESSION: 1.? No evidence of testicular torsion or epididymoorchitis. 2.? Small left hydrocele. 3.? Small left epididymal head cysts Assessment & Plan Assessment & Plan (1) BPH (benign prostatic hyperplasia): Code(s): N40.0 - Benign prostatic hyperplasia without lower urinary tract symptoms Category: Medical (2) Microscopic hematuria: Code(s): R31.29 - Other microscopic hematuria Category: Medical (3) Proteinuria: Code(s): R80.9 - Proteinuria, unspecified Category: Medical (4) History of nicotine use: Code(s): Z87.891 - Personal history of nicotine dependence Category: Medical (5) Elevated PSA: Code(s): R97.20 - Elevated prostate specific antigen [PSA] Category: Medical Plan Tamsulosin 0.4 mg daily Orders: Orders PSA,Total (Free>4and<10) 08/10/23 N40.0 - Benign prostatic hyperplasia without lower urinary tract symptoms AMB Post Void Residual by ultrasound 08/16/23 N39.8 - Other specified disorders of urinary system AMB Urinalysis Automated 08/16/23 Z13.9 - Encounter for screening, unspecified PSA,Total (Free>4and<10) 3 Months R97.20 - Elevated prostate specific antigen [PSA] Referrals Nephrology Referral R80.9 - Proteinuria, unspecified Patient Instructions: The patient had an opportunity to ask questions regarding treatment plan. The patient expressed understanding and agreement with the above treatment plan. The patient is aware they should contact our office by phone for worsening of their current condition or the appearance of new symptoms. Compliance is encouraged with any medications and followup testing that is ordered. It is a privilege to be allowed the opportunity to participate in the urologic care of your patient. If you have any questions or concerns regarding treatment for the above conditions please do not hesitate to contact me. The office telephone contact is [phone]. This note is constructed in part using voice recognition software. While every effort has been made to ensure accuracy metal sander and finisher errors may have been included. Yours sincerely, Keara Myles MD Coding Level of Care Code Est Pt Level 4 (11224) Complex EM visit Add On G2211 Diagnoses BPH (benign prostatic hyperplasia) N40.0 Microscopic hematuria R31.29 Proteinuria R80.9 History of nicotine use Z87.891 Elevated PSA R97.20
== END 2023-08-16 09:57 | disposition home or self-care (01) ==
PROVIDERS: PCP Internal Medicine; Visit Provider Urology
DX: N40.0 Benign prostatic hyperplasia without lower urinary tract symptoms (principal); R31.29 Other microscopic hematuria; R80.9 Proteinuria, unspecified; Z87.891 Personal history of nicotine dependence; R97.20 Elevated prostate specific antigen [PSA]
CPT/HCPCS: 99214; G2211

== ENCOUNTER → 2023-08-16 09:02 | Outpatient (BNVA) | payer MEDICARE, MEDICAID, SELFPAY | PROVIDERS: PCP Internal Medicine; Visit Provider Urology | DX: N40.0 Benign prostatic hyperplasia without lower urinary tract symptoms (principal); R31.29 Other microscopic hematuria; R80.9 Proteinuria, unspecified; R97.20 Elevated prostate specific antigen [PSA]; Z87.891 Personal history of nicotine dependence | CPT/HCPCS: 81003; 99212 ==

== ENCOUNTER 2023-08-27 09:24 | Outpatient (AMB) | payer MEDICARE, MEDICAID, SELFPAY ==
--- NOTE | 2023-08-27 09:29 | HO.NEPHOV ---
Vital Signs 08/27/23 09:30 Height 5 ft 6 in Weight 169 lb 8 oz BMI 27.4 BP 96/50 L Blood Pressure Location Rt brachial Position Sitting Pulse 82 Pulse Source Pulse Oximeter Pulse Oximetry (%) 96 Oxygen Delivery Method Room Air Intake Visit Reasons: Proteinuria/ LVM Intake Note: Electrical Research Engineer services refused/ Patient accompanied by daughter who will help interpret. Form signed and scanned into chart Electrical Research Engineer Required: Yes Electrical Research Engineer Name: Brendan Sarmiento Accompanied by: Daughter Allergies No Known Allergies [No Known Allergies*] Allergy (Verified 08/16/23 09:16) HPI Comments Details: I had the pleasure of seeing Adan in consultation for proteinuria and history of microscopic hematuria on a backdrop of longstanding diabetes. His blood sugar control had been suboptimal. He has been started on Trulicity and has lost some significant weight. He has not on Farxiga or Jardiance. He is tolerating lisinopril. He has no history of coronary artery disease, carotid stenosis, congestive heart failure, CVA, renal artery stenosis or peripheral arterial disease. He does not take any excessive nonsteroidal anti-inflammatories. He has no history of HIV or hepatitis. He has no history of drug use. He denies having epistaxis, sinusitis, sore throat, macroscopic hematuria, renal calculi, new bone or back pain. He had a cystoscopy which was unremarkable. He had CT scan of the abdomen which did not show any etiology to explain for his hematuria. His serum creatinine has been stable. He has no edema. He feels well. 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 Physical Exam Vital Signs: Last Vital Signs Pulse 82 08/27/23 09:30 BP 96/50 L 08/27/23 09:30 Pulse Ox 96 08/27/23 09:30 Oxygen Delivery Method Room Air 08/27/23 09:30 BMI result Body Mass Index 27.4 Const General: comfortable and no acute distress Orientation/consciousness: patient oriented x3 HEENT Head: Yes normocephalic Mouth: Normal oral and palatal mucosa present Eyes EOM: EOMs intact bilaterally Neck Neck: Yes supple Resp Auscultation: clear to auscultation bilaterally Cardio Jugular venous distension: no JVD Rate: regular rate GI Palpation (GI): Soft to palpation Auscultation: normal bowel sounds General: Yes no CVA tenderness Back/Spine/Pelvis Back: no CVA tenderness Skin General skin exam: no rashes or lesions noted Neuro General: patient oriented x3 and moves all extremities Extrem General: Yes no pedal edema Results Reviewed Nephrology Results: Hgb 12.1 g/dl (14.0-18.0) L 06/07/23 WBC 4.6 X10*3/uL (4.8-10.8) L 06/07/23 Plt Count 292 X10*3/uL (160-400) 06/07/23 Sodium 138 mmol/L (135-145) 06/07/23 Potassium 4.4 mmol/L (3.3-5.1) 06/07/23 Chloride 105 mmol/L (96-108) 06/07/23 Carbon Dioxide 26 mmol/L (22-29) 06/07/23 BUN 13 mg/dL (9-16) 06/07/23 Creatinine 0.91 mg/dL (0.5-1.4) 06/07/23 Calcium 9.5 mg/dL (8.4-10.2) 06/07/23 Assessment & Plan Assessment & Plan (1) Proteinuria: Code(s): R80.9 - Proteinuria, unspecified Category: Medical Qualifiers: Proteinuria type: other Qualified Code(s): R80.8 - Other proteinuria (2) Microscopic hematuria: Code(s): R31.29 - Other microscopic hematuria Category: Medical Plan Adan has history of longstanding diabetes( type 2 ). His diabetic control has been poor. He is on Trulicity but not on Jardiance or Farxiga. He is tolerating ANIKET inhibitor. He has history of microscopic hematuria for which he had undergone cystoscopy as well as imaging studies which were unyielding. His serum creatinine is stable. I have ordered repeat urine and blood work studies. There is no indication for any renal biopsy now. He avoids nonsteroidal anti-inflammatories and maintain good hydration. I did not make any medication changes today but discussed possible etiologies, investigations and management strategies. I answered all his and his daughter's questions. Follow-up appointment given. Orders: Orders Creatinine Today R80.9 - Proteinuria, unspecified Protein Creatinine Ratio, Ur Today R80.9 - Proteinuria, unspecified UA and rflx microscopic Today R80.9 - Proteinuria, unspecified Complement C3 Today R80.9 - Proteinuria, unspecified Complement C4 Today R80.9 - Proteinuria, unspecified Blood Urea Nitrogen Today R80.9 - Proteinuria, unspecified Electrolytes Today R80.9 - Proteinuria, unspecified Calcium Today R80.9 - Proteinuria, unspecified Immunofixation Pnl, Serum Today R80.9 - Proteinuria, unspecified Coding Level of Care Code New Pt Level 4 (19323) Diagnoses Other proteinuria R80.8 Proteinuria type: other Microscopic hematuria R31.29
[2023-08-27 09:30] VITALS: BP 96/50; PULSE 82; O2SAT 96; BMI 27.4
== END 2023-08-27 09:58 | disposition home or self-care (01) ==
PROVIDERS: PCP Internal Medicine; Visit Provider Internal Medicine Nephrology
DX: R80.8 Other proteinuria (principal); R31.29 Other microscopic hematuria
CPT/HCPCS: 99204

== ENCOUNTER → 2023-08-27 09:24 | Outpatient (BNVA) | payer MEDICARE, MEDICAID, SELFPAY | PROVIDERS: PCP Internal Medicine; Visit Provider Internal Medicine Nephrology | DX: R80.9 Proteinuria, unspecified (principal); R31.29 Other microscopic hematuria; E11.9 Type 2 diabetes mellitus without complications; Z79.85 Long-term (current) use of injectable non-insulin antidiabetic drugs | CPT/HCPCS: 99202 ==

== ENCOUNTER 2023-10-19 10:03 | Outpatient (REF) | payer MEDICARE, MEDICAID, SELFPAY ==
[2023-10-19 11:43] LABS: Appearance Urine Clear; Color Urine Yellow; Glucose Urine UA >=1000 mg/dL (Negative); Leukocyte Esterase Urine Negative (Negative); Nitrite Urine Negative (Negative); PH 6.5 (5.0-9.0); UMIC TRIGGER UA YES; Urine Blood Negative (Negative); Urine Ketones Negative (Negative); Urine Protein Trace mg/dL (Neg-Trace)
[2023-10-19 11:47] LABS: Bacteria Urine None Seen (None Seen); Hyaline Casts Urine 0-2 /LPF (0-2); RBC Urine 0-2 /HPF (0-2); Squamous Epithelial Cell Urine 0-2 /HPF (0-2); WBC Urine 0-5 /HPF (0-5)
== END 2023-10-19 10:04 | disposition home or self-care (01) ==
LOC: HO.LAB 10:03
PROVIDERS: PCP Internal Medicine; Visit Provider Urology
DX: R97.20 Elevated prostate specific antigen [PSA] (principal); Z87.891 Personal history of nicotine dependence; R80.8 Other proteinuria; R31.29 Other microscopic hematuria; N40.0 Benign prostatic hyperplasia without lower urinary tract symptoms
CPT/HCPCS: 81001; 87086

== ENCOUNTER 2023-11-16 07:03 | Outpatient (REF) | payer MEDICARE, MEDICAID, SELFPAY ==
[2023-11-16 07:26] LABS: MANUAL DIFF FLAG NO
[2023-11-16 08:01] LABS: Basophils Percent Auto 0.8 % (0-2); Eosinophils Absolute Auto 0.1 X10*3/uL (0.0-0.4); Eosinophils Percent Auto 1.7 % (0-4); Hematocrit 39.4 % (42.0-52.0); Hemoglobin 13.1 g/dl (14.0-18.0); Imm Gran Abs Auto 0.02 X10*3/uL (0.00-0.03); Imm Gran Pct Auto 0.4 % (0.0-0.4); Lymphocytes Absolute Auto 2.2 X10*3/uL (1.2-4.9); Lymphocytes Percent Auto 41.6 % (20-40); Mean Corpuscular HGB Conc 33.2 g/dl (31.0-36.0); Mean Corpuscular Hemoglobin 29.6 pg (27.0-33.0); Mean Corpuscular Volume 89.1 fL (80.0-98.0); Mean Platelet Volume 9.4 fL (9.4-12.4); Monocytes Absolute Auto 0.6 X10*3/uL (0.1-1.2); Monocytes Percent Auto 10.8 % (2-11); Neutrophils Absolute Auto 2.3 x10*3/uL (2.0-8.3); Neutrophils Percent Auto 44.7 % (45-73); Platelet Count 213 X10*3/uL (160-400); Red Blood Count 4.42 X10*6/uL (4.60-5.80); Red Cell Distribution Width 13.8 % (11.0-16.0); White Blood Count 5.2 X10*3/uL (4.8-10.8)
[2023-11-16 08:21] LABS: Estimated Average Glucose 240 mg/dL
[2023-11-16 08:29] LABS: Alanine Aminotransferase 11 U/L (0-40); Albumin Level 4.3 g/dL (3.5-5.0); Alkaline Phosphatase 85 U/L (39-117); Anion Gap 12 (12-20); Aspartate Amino Transferase 16 U/L (5-37); Bilirubin Total 0.3 mg/dL (0.0-1.0); Blood Urea Nitrogen 13 mg/dL (9-16); Calcium 9.7 mg/dL (8.4-10.2); Carbon Dioxide 27 mmol/L (22-29); Chloride 102 mmol/L (96-108); Cholesterol 108 mg/dL (<200); Estimated Glomerular Filt Rate > 60; Glucose Random 156 mg/dL (60-115); HDL Cholesterol 36 mg/dL (>40); LDL Cholesterol Calculated 44 mg/dL (<100); Potassium 4.1 mmol/L (3.3-5.1); Sodium 137 mmol/L (135-145); Total Protein 7.6 g/dL (6.5-8.0); Triglycerides 141 mg/dL (<150)
[2023-11-16 08:31] LABS: Anion Gap 15 (12-20); Blood Urea Nitrogen 13 mg/dL (9-16); Calcium 9.9 mg/dL (8.4-10.2); Carbon Dioxide 27 mmol/L (22-29); Chloride 102 mmol/L (96-108); Estimated Glomerular Filt Rate > 60; Potassium 4.4 mmol/L (3.3-5.1); Sodium 140 mmol/L (135-145)
[2023-11-16 08:48] LABS: PSA,Total (Free>4and<10) 1.33 ng/mL (0.00-4.00)
[2023-11-16 08:49] LABS: Prostate Specific Antigen Scr 1.28 ng/mL (<0.05-4.0)
[2023-11-16 10:25] LABS: Appearance Urine Clear; Color Urine Yellow; Glucose Urine UA Negative (Negative); Leukocyte Esterase Urine Negative (Negative); Nitrite Urine Negative (Negative); PH 6.5 (5.0-9.0); Specific Gravity - Urine 1.015 (1.005-1.025); UMIC TRIGGER UA YES; Urine Blood Negative (Negative); Urine Ketones Negative (Negative); Urine Protein 100 (2+) mg/dL (Neg-Trace)
[2023-11-16 10:36] LABS: Bacteria Urine None Seen (None Seen); Hyaline Casts Urine 0-2 /LPF (0-2); RBC Urine 0-2 /HPF (0-2); Squamous Epithelial Cell Urine 0-2 /HPF (0-2); WBC Urine 0-5 /HPF (0-5)
[2023-11-16 11:04] LABS: Creatinine Urine 107.74 mg/dL; Protein/Creatinine Ratio, Ur 0.84 (<0.2); Total Protein Urine Random 90 mg/dL (<12)
[2023-11-16 11:36] LABS: Creatinine Urine 110.66 mg/dL; Microalbum/Creatinine Ratio Ur 301.8 ug/mg cr (<30)
[2023-11-17 12:53] LABS: Complement C3 156 mg/dL (82-185)
[2023-11-18 12:08] LABS: IgA 705 mg/dL (70-320); IgG 999 mg/dL (600-1540); IgM 46 mg/dL (50-300)
== END 2023-11-16 07:04 | disposition home or self-care (01) ==
LOC: HO.LAB 07:03
PROVIDERS: Absent Provider Internal Medicine Nephrology; PCP Internal Medicine; Referring Provider Urology; Visit Provider Internal Medicine
DX: R80.9 Proteinuria, unspecified (principal); R97.20 Elevated prostate specific antigen [PSA]; D64.9 Anemia, unspecified; E11.65 Type 2 diabetes mellitus with hyperglycemia; E78.00 Pure hypercholesterolemia, unspecified; I10 Essential (primary) hypertension; N40.0 Benign prostatic hyperplasia without lower urinary tract symptoms; Z12.5 Encounter for screening for malignant neoplasm of prostate
CPT/HCPCS: 36415; 80051; 80053; 80061; 81001; 82043; 82310; 82565; 82570; 82784; 83036; 84153; 84156; 84520; 85025; 86160; 86334

== ENCOUNTER 2024-03-02 10:10 | Outpatient (AMB) | payer MEDICARE, MEDICAID, SELFPAY ==
--- NOTE | 2024-03-01 22:22 | MHC.OFFVIS ---
Intake Visit Reasons: 4m/PSA(PSA 1.33) Intake Note: Patient is present for 4M/PSA MEDS:NONE Antibiotic Allergy:NONE Blood Thinner:ASPIRIN Heavy Mobile Equipment Repairer Required: Yes Heavy Mobile Equipment Repairer Name: [id number] Sanders Information Interpreted: non-clinical & clinical Allergies No Known Allergies [No Known Allergies*] Allergy (Verified 03/02/24 10:12) HPI Comments Details: 03/02/24--He is followed for BPH, elevated on tamsulosin and was started on proscar, h/o microscopic hematuria w/u completed. He states he is doing well. Denies irritative voiding symptoms. Discussed Total PSA -11/16/23--1.33 Review of chart: 08/16/23--Adan is a 72-year-old male who presents today to the office for a follow-up. He is followed for BPH on tamsulosin, h/o microscopic hematuria. Workup for microscopic hematuria noted in enlarged prostate was negative for this suspicious urinary tract tumors. I have reviewed PSA results with the patient and his daughter who interprets for him. PSA 08/10/2023-5.99 ng/mL. He has not seen Nephrology. Plan to continue tamsulosin. 02/15/2023? Adan is here with his daughter who interprets for him. PMH IDDM, Htn. He is followed for BPH on tamsulosin, h/o microscopic hematuria. He is followed today for a Cystoscopy procedure. He was last seen by me on 01/11/2023 noted to have proteinuria, discussed referral to Mold Yarn Supervisor, but referral did not go into the chart. Cystoscopy findings: Prostate examination: Mild trabeculations noted, bilobar enlargement of the prostatic urethra and no suspicious bladder lesions noted. s/p hydrocele repair 01/30. Imaging: CT abdomen/pelvis results from 09/04/2022 -Urinary tract WNL, no nephrolithiasis or parenchymal lesions. Scrotum US results from 03/29/2022 revealed no evidence of testicular torsion or epididymoorchitis. Small left hydrocele. Small left epididymal head cysts Labs:PSA results from 02/02/2022 revealed 0.75 ng/mL. 01/11/23 - [place]: --Prostate exam: Prostate was smooth, mildly enlarged. 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 Review of Systems Const All systems reviewed & are unremarkable except as noted in HPI and below Reports no additional complaints Eyes Reports no additional complaints ENT Reports no additional complaints Card Reports no additional complaints Resp Reports no additional complaints GI Reports no additional complaints Reports as per HPI Musc Reports no additional complaints Skin/Breast Reports system reviewed and no additional complaints, except as documented Neuro Reports no additional complaints Psych Reports no additional complaints Endo Reports no additional complaints Uri/Lymph Reports no additional complaints Aller/Immun Reports no additional complaints Telehealth Telehealth Telehealth Platform: [employer] Location of provider rendering services: practice address Location of patient: address on file Patient Identification confirmed using: Name, : Yes Telehealth method: voice only Patient verbally consented to treatment: Yes Patient verbally consented to billing insurance company: Yes Patient informed of any privacy concerns related to visit: Yes Minutes spent on Phone/Video with Pt.: 15 Results Reviewed Results Reviewed: Date of service: 09/04/2022-- EXAMINATION: CT ABDOMEN AND PELVIS WITH CONTRAST?? CLINICAL INFORMATION: Right lower quadrant pain?? COMPARISON: Ultrasound appendix august 29 09/29/[address] abdomen pelvis 03/29/2022 FINDINGS: LUNG BASES: Bibasilar atelectasis is seen. Triple-vessel coronary calcifications seen. Heart size normal. No pleural effusions. LIVER, GALLBLADDER, AND BILIARY TREE: The liver is mildly enlarged measuring 17.5 cm in cephalocaudad dimension with a suggestion of decreased attenuation raising the possibility of hepatic steatosis. In size, shape, and attenuation. No focal hepatic lesion or biliary ductal dilatation is present. The gallbladder is unremarkable with no evidence of radiopaque gallstones, or obvious pericholecystic inflammatory changes. A tiny phrygian cap is present with some local wall thickening. PANCREAS: Unremarkable.?? SPLEEN: Mild splenomegaly at 12.6 cm.?? ADRENAL GLANDS: Unremarkable.?? KIDNEYS AND URETERS: The kidneys are normal in size, shape, and attenuation. No hydronephrosis, hydroureter, or calculi seen. No perinephric stranding.? ? BLADDER: Unremarkable.?? GASTROINTESTINAL TRACT: Extensive diverticulosis is noted in the sigmoid without evidence of diverticulitis. The small and large bowel are otherwise unremarkable. The appendix is unremarkable.?? ABDOMINAL WALL: No significant hernia is appreciated.?? LYMPH NODES: No retroperitoneal lymphadenopathy. VASCULAR: Marked calcific plaque present in the aorta and iliac vessels along with common femoral arteries. No aneurysms. PELVIC VISCERA: The prostate and seminal vesicles are unremarkable.?? OSSEOUS STRUCTURES: Unremarkable.?? IMPRESSION: 1.? A cause for the patient's abdominal pain has not been found. The appendix is normal. 2.? Incidental note made of mildly enlarged fatty liver with mild splenomegaly. 3.? Extensive sigmoid diverticulosis without diverticulitis Date of Service: 03/29/22 EXAMINATION: US SCROTUM CLINICAL INFORMATION:? Suprapubic and testicular pain bilaterally for 4 days. COMPARISON:? Scrotal ultrasound 11/11/2020 FINDINGS: RIGHT: Right testicle measures 3.7 x 1.8 x 2.9 cm, volume 9.9 mL. No focal testicular parenchymal lesions are visualized. Spectral Doppler analysis of the arterial and venous flow is normal in the right testis. Right epididymal head was not visualized. No right hydrocele or varicocele is seen. Right epididymal Doppler flow is normal. LEFT: Left testicle measures 3.2 x 2.3 x 2.2 cm, volume 8.4 mL. No focal testicular parenchymal lesions are visualized. Spectral Doppler analysis of the arterial and venous flow is normal in the left testis.? Left epididymal head is normal in size. No left varicocele is seen. Small hydrocele containing low-level echoes. Left epididymal Doppler flow is normal. Couple small anechoic epididymal head cysts are seen measuring 0.5 and 0.6 cm in size. IMPRESSION: 1.? No evidence of testicular torsion or epididymoorchitis. 2.? Small left hydrocele. 3.? Small left epididymal head cysts Assessment & Plan Assessment & Plan (1) BPH (benign prostatic hyperplasia): Code(s): N40.0 - Benign prostatic hyperplasia without lower urinary tract symptoms Category: Medical (2) Microscopic hematuria: Code(s): R31.29 - Other microscopic hematuria Category: Medical (3) Proteinuria: Code(s): R80.9 - Proteinuria, unspecified Category: Medical Qualifiers: Proteinuria type: other Qualified Code(s): R80.8 - Other proteinuria (4) History of nicotine use: Code(s): Z87.891 - Personal history of nicotine dependence Category: Medical (5) Elevated PSA: Code(s): R97.20 - Elevated prostate specific antigen [PSA] Category: Medical Plan Tamsulosin 0.4 mg daily Coding Level of Care Code Tele Est Pt Level 3 (66735) Diagnoses BPH (benign prostatic hyperplasia) N40.0 Microscopic hematuria R31.29 Other proteinuria R80.8 Proteinuria type: other History of nicotine use Z87.891 Elevated PSA R97.20
== END 2024-03-02 11:41 | disposition home or self-care (01) ==
LOC: HO.HUSH 10:10
PROVIDERS: PCP Internal Medicine; Visit Provider Urology
DX: N40.0 Benign prostatic hyperplasia without lower urinary tract symptoms (principal); R31.29 Other microscopic hematuria; R80.8 Other proteinuria; Z87.891 Personal history of nicotine dependence; R97.20 Elevated prostate specific antigen [PSA]
CPT/HCPCS: 99442

== ENCOUNTER 2024-04-02 16:27 | Emergency (ER) | payer MEDICARE, MEDICAID, SELFPAY ==
--- NOTE | ~2024-04-02 | XR_ITS ---
EXAMINATION: XR chest 2V CLINICAL INFORMATION: chest pain COMPARISON: Chest radiograph 05/30/23 TECHNIQUE: 2 views of the chest FINDINGS: Clear lungs. No pneumothorax. No pleural effusion. Normal cardiomediastinal silhouette. XR/XR chest 2V IMPRESSION: No acute cardiopulmonary findings. Electronically signed by: Katherine Glover MD 04/02/2024 05:42 PM [facility]
[2024-04-02 16:34] VITALS: BP 137/71; PULSE 91; RESP 19; TEMP 36.1; O2SAT 98; BMI 27.3
--- NOTE | 2024-04-02 16:34 | ECG_ITS ---
Test Reason : abdominal pain Blood Pressure : / mmHG Vent. Rate : 090 BPM Atrial Rate : 090 BPM P-R Int : 150 ms QRS Dur : 088 ms QT Int : 330 ms P-R-T Axes : 062 041 064 degrees QTc Int : 403 ms Normal sinus rhythm Normal ECG When compared with ECG of 30-MAY-2023 07:10, No significant change was found Referred By: Roma Lopez Electronically Signed By:Shamir Lozano
--- NOTE | 2024-04-02 16:34 | ED_ITS ---
HPI - General Adult General Chief complaint: Abdominal Pain Stated complaint: Abdominal pain, dizziness, diabetic Time Seen by Provider: 04/02/24 19:39 Source: patient Mode of arrival: ambulatory Limitations: no limitations History of Present Illness ED Provider: Dr. Lottie Carreon HPI narrative: Patient comes to the emergency room complaining of epigastric pain for 1 week. Patient states that sometimes he feels nauseous. At this time, he has no nausea vomiting or any abdominal pain. Patient states he has noticed it gets worse when he eats or drinks something, probably within 10-20 minutes after ingesting anything. Patient denies any fever chills, no chest pain or shortness of breath, no UTI or URI symptoms. Related Data Home Medications ?Medication ?Instructions ?Recorded ?Confirmed metformin 1,000 mg tablet 1,000 mg PO DAILY 03/01/20 01/11/23 insulin detemir U-100 100 unit/mL 55 unit subcut BEDTIME 12/05/20 01/11/23 subcutaneous solution (Levemir U-100 Insulin) insulin syringe-needle U-100 0.5 #10 ea 12/05/20 01/11/23 mL 30 gauge x 1/2 (BD Insulin Syringe Ultra-Fine) lisinopril 5 mg tablet 5 mg PO DAILY 12/05/20 01/11/23 rosuvastatin 40 mg tablet 40 mg PO BEDTIME 12/05/20 01/11/23 blood sugar diagnostic (FreeStyle #10 ea 02/14/21 01/11/23 Lite Strips) lancets 28 gauge (FreeStyle #100 ea 02/14/21 01/11/23 Lancets) dulaglutide 1.5 mg/0.5 mL 1.5 mg subcut TU 09/04/22 01/11/23 subcutaneous pen injector (Trulicity) dupilumab 300 mg/2 mL subcutaneous 300 mg subcut Q15D 09/04/22 01/11/23 pen injector (Dupixent) insulin lispro 100 unit/mL 45 unit subcut TID 09/04/22 01/11/23 subcutaneous solution (Humalog U-100 Insulin) omeprazole 20 mg capsule,delayed 20 mg PO DAILY@0630 09/04/22 01/11/23 release aspirin 81 mg chewable tablet 1 tab PO DAILY 09/15/22 01/11/23 Previous Rx's ?Medication ?Instructions ?Recorded oxycodone 5 mg tablet 5 mg PO Q6H PRN pain (scale score 09/05/22 7-10) #15 tabs finasteride 5 mg tablet (Proscar) 5 mg PO DAILY 90 days #90 tabs 03/02/24 tamsulosin 0.4 mg capsule 0.4 mg PO DAILY 90 days #90 caps 03/02/24 omeprazole 40 mg capsule,delayed 40 mg PO DAILY #90 caps 04/02/24 release Allergies Allergy/AdvReac Type Severity Reaction Status Date / Time No Known Allergies Allergy Verified 04/02/24 16:35 [No Known Allergies*] Review of Systems 2 Review of Systems: Constitutional : No Weight loss, No Fever, No Chills, No Night Sweats, No Fatigue, No Malaise ENT/Mouth : No Hearing loss, No Ear Pain, No Nasal Congestion, No Sinus Pain, No Hoarseness, No sore throat, No Rhinorrhea, No Swallowing Difficulty Eyes: No Eye Pain, No Swelling, No Redness, No Foreign Body, No Discharge, No Vision Changes Cardiovascular : No Chest Pain, No SOB, No Dyspnea on Exertion, No Orthopnea, No Edema, No Palpitations Respiratory : No Cough, No Sputum, No Wheezing, No Smoke Exposure, No Dyspnea Gastrointestinal : No Nausea, No Vomiting, No Diarrhea, No Constipation, complaining of mild intermittent epigastric pain worse with eating or drinking Genitourinary : no irregular bleeding, No Dysuria, No Urinary Frequency, No Hematuria, No Urinary Incontinence, No Urgency, No Flank Pain, No Urinary Flow Changes, No Hesitancy Musculoskeletal : No joint pain, No Myalgias, No Joint Swelling Skin : No Skin Lesions, No rash Neuro : No Weakness, No Numbness, No Paresthesias, No Loss of Consciousness, No Dizziness, No Headache Psych : No Anxiety/Panic, No Depression, No SI/HI/AH/VH, No Social Issues, Heme/Lymph: No Bruising, No Bleeding,No Lymphadenopathy Endocrine : No Polyuria, No Polydipsia, No Temperature Intolerance [facility] Past Medical History Medical History Abdominal pain, RLQ History of COVID-19 Anxiety Arthritis HTN (hypertension) High cholesterol Diabetes Surgical History History of testicular surgery H/O colonoscopy History of esophagogastroduodenoscopy (EGD) Family History Family History Father Brain cancer Mother Brain cancer Social History Social History Alcohol intake: never Patient Tobacco Use Status: Former Tobacco user Second Hand Smoke Exposure: No Advance Directives: No Advance Directives Information Provided: No Do you have a plan to hurt others: No Plan Current occupational status: disabled 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 Oriented X3. No acute distress. Eyes: Pupils equal, round and reactive to light. ENT: Pharynx normal. Neck: Normal inspection. Neck supple. No lymph nodes noted. No crepitus CVS: Normal heart rate and rhythm. Pulses normal. Normal S1 and S2 Respiratory: No respiratory distress. Breath sounds normal. No Wheezing. No rales Abdomen: Soft and nontender. No rigidity. No distention. Negative Harris's sign Skin: Skin warm and dry. Normal skin color. Normal skin turgor. Extremities: No lower extremity edema. No Lacerations. No Rash Neuro: Oriented X 3. No motor deficit. No sensory deficit. Moving all extremities. No slurred speech. CN 2 through 12 grossly intact Psych: calm, cooperative, normal affect Course Course Course Narrative: This is a rapid medical exam performed by Zoraida Lopez NP: Additional HPI, ROS, PE not included below will be deferred to primary provider. Patient is a 73-year-old male with history of BPH presenting with complaint of epigastric pain for the past week, when pain becomes severe he has excessive saliva. Denies nausea. Reports associated dizziness. Plan: EKG, CXR, labs Medical Decision Making Medical Decision Making MDM Narrative: Patient's physical exam was unremarkable. Patient did not have any abdominal pain at all on deep palpation in the epigastric right upper quadrant periumbilical area and in all quadrants. At this time, patient states that he is asymptomatic. My interpretation of labs: No acute abnormality in patient's hematology chemistry lipase troponin LFTs -chest x-ray does not show any acute abnormality, no free air under the diaphragm -patient was given viscous lidocaine, Maalox and omeprazole. I discussed with the patient that he likely has gastritis versus a peptic ulcer. Patient. Treatment tonight, discussed with the patient that this is a long-term treatment, he will need to make some diet changes as well. And also patient will need to follow-up with his primary care physician. It is possible that eventually patient may need an upper endoscopy if the treatment does not work I considered doing a CT scan of the abdomen. However, patient's physical exam was unremarkable especially in the abdomen and also patient is asymptomatic at this time. Differential Diagnosis Differential Diagnoses: The differential diagnosis associated with the presentation includes (As above) Lab Data MDM Lab Attestation statement: I reviewed the patient's lab results. 04/02/24 17:17 04/02/24 17:17 Labs: Lab Results 04/02/24 Range/Units 17:17 WBC 5.1 (4.8-10.8) X10*3/uL RBC 4.63 (4.60-5.80) X10*6/uL Hgb 13.9 L (14.0-18.0) g/dl Hct 40.5 L (42.0-52.0) % MCV 87.5 (80.0-98.0) fL MCH 30.0 (27.0-33.0) pg MCHC 34.3 (31.0-36.0) g/dl RDW 12.9 (11.0-16.0) % Plt Count 196 (160-400) X10*3/uL MPV 8.8 L (9.4-12.4) fL Immature Gran % (Auto) 0.2 (0.0-0.4) % Neut % (Auto) 49.8 (45-73) % Lymph % (Auto) 39.6 (20-40) % Rice % (Auto) 9.4 (2-11) % Eos % (Auto) 0.4 (0-4) % Baso % (Auto) 0.6 (0-2) % Lymph # (Auto) 2.0 (1.2-4.9) X10*3/uL Rice # (Auto) 0.5 (0.1-1.2) X10*3/uL Eos # (Auto) 0.0 (0.0-0.4) X10*3/uL Baso # (Auto) 0.0 (0.0-0.2) X10*3/uL Abs Immat Gran (auto) 0.01 (0.00-0.03) X10*3/uL Absolute Neuts (auto) 2.6 (2.0-8.3) x10*3/uL Absolute Nucleated RBC 0.000 (0.0-0.012) X10*3/uL Nucleated RBC % (auto) 0.0 (0.0-0.2) /100WBC PT 12.7 H (10.9-12.4) SEC INR 1.1 (0.9-1.1) Sodium 136 (135-145) mmol/L Potassium 4.5 (3.3-5.1) mmol/L Chloride 103 (96-108) mmol/L Carbon Dioxide 26 (22-29) mmol/L Anion Gap 12 (12-20) BUN 14 (9-16) mg/dL Creatinine 1.05 (0.5-1.4) mg/dL Estim Creat Clear Calc 62.9 Estimated GFR > 60 Random Glucose 219 H (60-115) mg/dL Calcium 9.2 (8.4-10.2) mg/dL Total Bilirubin 0.4 (0.0-1.0) mg/dL AST 21 (5-37) U/L ALT 12 (0-40) U/L Alkaline Phosphatase 100 (39-117) U/L Troponin I High Sens < 2.7 (<3.5-35.0) ng/L Total Protein 7.9 (6.5-8.0) g/dL Albumin 4.4 (3.5-5.0) g/dL Lipase 23 (8-78) U/L Discharge Plan Discharge Clinical Impression: Peptic ulcer disease Patient Disposition: Home, Self-Care Instructions: Peptic Ulcer (ED), Diet for Stomach Ulcers and Gastritis (ED) Additional Instructions: Please follow-up with your primary care physician tomorrow. If you have any worsening or new symptoms, please return to the emergency room or call 911 Prescriptions: New omeprazole 40 mg capsule,delayed release(DR/EC) 40 mg PO DAILY Qty: 90 0RF No Action omeprazole 20 mg capsule,delayed release(DR/EC) 20 mg PO DAILY@0630 Trulicity 1.5 mg/0.5 mL pen injector 1.5 mg subcut TU Dupixent Pen 300 mg/2 mL pen injector 300 mg subcut Q15D insulin lispro [Humalog U-100 Insulin] 100 unit/mL Solution 45 unit SUBCUT TID oxycodone 5 mg tablet 5 mg PO Q6H PRN (Reason: pain (scale score 7-10)) Qty: 15 0RF Rx Instructions: Partial Fill upon patient request. metformin 1,000 mg tablet 1,000 mg PO DAILY (DME) insulin syringe-needle U-100 [BD Insulin Syringe Ultra-Fine] 0.5 mL 30 gauge x 1/2 syringe See Rx Instructions .ROUTE .MEDSUPPLY Qty: 10 Rx Instructions: As directed Levemir U-100 Insulin 100 unit/mL solution 55 unit subcut BEDTIME rosuvastatin 40 mg tablet 40 mg PO BEDTIME lisinopril 5 mg tablet 5 mg PO DAILY (DME) lancets [FreeStyle Lancets] 28 gauge misc See Rx Instructions topical TID Qty: 100 Rx Instructions: As directed (DME) FreeStyle Lite Strips Strip See Rx Instructions Not Applicable TID Qty: 10 Rx Instructions: As directed aspirin 81 mg tablet,chewable 1 tab PO DAILY finasteride [Proscar] 5 mg tablet 5 mg PO DAILY 90 Days Qty: 90 3RF tamsulosin 0.4 mg capsule 0.4 mg PO DAILY 90 Days Qty: 90 3RF Print Language: Slovak
[2024-04-02 17:22] LABS: MANUAL DIFF FLAG NO
[2024-04-02 17:23] LABS: Basophils Percent Auto 0.6 % (0-2); Eosinophils Percent Auto 0.4 % (0-4); Hematocrit 40.5 % (42.0-52.0); Hemoglobin 13.9 g/dl (14.0-18.0); Imm Gran Abs Auto 0.01 X10*3/uL (0.00-0.03); Imm Gran Pct Auto 0.2 % (0.0-0.4); Lymphocytes Percent Auto 39.6 % (20-40); Mean Corpuscular HGB Conc 34.3 g/dl (31.0-36.0); Mean Corpuscular Volume 87.5 fL (80.0-98.0); Mean Platelet Volume 8.8 fL (9.4-12.4); Monocytes Absolute Auto 0.5 X10*3/uL (0.1-1.2); Monocytes Percent Auto 9.4 % (2-11); Neutrophils Absolute Auto 2.6 x10*3/uL (2.0-8.3); Neutrophils Percent Auto 49.8 % (45-73); Platelet Count 196 X10*3/uL (160-400); Red Blood Count 4.63 X10*6/uL (4.60-5.80); Red Cell Distribution Width 12.9 % (11.0-16.0); White Blood Count 5.1 X10*3/uL (4.8-10.8)
[2024-04-02 17:35] LABS: INTERNATIONAL NORM RATIO 1.1 (0.9-1.1); Prothrombin Time 12.7 SEC (10.9-12.4)
[2024-04-02 17:43] LABS: Alanine Aminotransferase 12 U/L (0-40); Albumin Level 4.4 g/dL (3.5-5.0); Alkaline Phosphatase 100 U/L (39-117); Anion Gap 12 (12-20); Aspartate Amino Transferase 21 U/L (5-37); Bilirubin Total 0.4 mg/dL (0.0-1.0); Blood Urea Nitrogen 14 mg/dL (9-16); Calcium 9.2 mg/dL (8.4-10.2); Carbon Dioxide 26 mmol/L (22-29); Chloride 103 mmol/L (96-108); Creatinine Clr Calc Pharmacy 62.9; Estimated Glomerular Filt Rate > 60; Glucose Random 219 mg/dL (60-115); Lipase 23 U/L (8-78); Potassium 4.5 mmol/L (3.3-5.1); Sodium 136 mmol/L (135-145); Total Protein 7.9 g/dL (6.5-8.0)
[2024-04-02 17:57] LABS: Troponin-I High Sensitivity < 2.7 ng/L (<3.5-35.0)
[2024-04-02 18:45] VITALS: BP 147/73; PULSE 87; RESP 18; TEMP 36.4; O2SAT 99
[2024-04-02] MEDS: Omeprazole 40 MG CAPSULE.DR PO (20:28)
[2024-04-02] MEDS: Magnesium Hydrox/Alum Hydrox 30 ML ORAL.SUSP PO (20:28)
[2024-04-02] MEDS: Lidocaine HCl Viscous 2 % 15 ML SOLUTION MUCOUS MEM (20:29)
[2024-04-02 20:30] VITALS: BP 147/73; PULSE 87; RESP 18; TEMP 36.4; O2SAT 99
== END 2024-04-02 20:32 | disposition home or self-care (01) ==
PROVIDERS: Registered Nurse Emergency; Emergency Provider Emergency Medicine
DX: K27.9 Peptic ulcer, site unspecified, unspecified as acute or chronic, without hemorrhage or perforation (principal); R10.2 Pelvic and perineal pain; R42 Dizziness and giddiness; R10.13 Epigastric pain; R11.2 Nausea with vomiting, unspecified; I10 Essential (primary) hypertension; Z79.899 Other long term (current) drug therapy
CPT/HCPCS: 36415; 71046; 80053; 83690; 84484; 85025; 85610; 93005; 99284

== ENCOUNTER → 2024-04-02 16:34 | Outpatient (BNV) | payer MEDICARE, MEDICAID, SELFPAY | PROVIDERS: Emergency Provider Emergency Medicine; Visit Provider Internal Medicine Cardiovascular Disease | DX: R42 Dizziness and giddiness (principal); R10.9 Unspecified abdominal pain | CPT/HCPCS: 93010 ==

== ENCOUNTER 2024-04-14 09:33 | Outpatient (AMB) | payer MEDICARE, MEDICAID, SELFPAY ==
--- NOTE | 2024-04-14 09:53 | HO.NEPHOV_ITS ---
Vital Signs 04/14/24 09:58 Height 5 ft 6 in Weight 162 lb 6 oz BMI 26.2 BP 110/60 Blood Pressure Location Lt brachial Position Sitting Pulse 92 Pulse Source Pulse Oximeter Pulse Oximetry (%) 94 Oxygen Delivery Method Room Air Intake Visit Reasons: Proteinuria/ 4 MO FU/LVM Grades 1 Through 6 Teacher Required: Yes Grades 1 Through 6 Teacher Language: Optician Services: Grades 1 Through 6 Teacher Offered & Declined [place] [place] Accompanied by: Daughter Allergies No Known Allergies [No Known Allergies*] Allergy (Verified 04/14/24 09:58) HPI Comments Details: Adan was seen in follow up for proteinuria and history of microscopic hematuria on a backdrop of longstanding diabetes. His blood sugar control had been suboptimal. He has been started on Trulicity and has lost some significant weight. He has not on Farxiga or Jardiance. He is tolerating lisinopril. He has no history of coronary artery disease, carotid stenosis, congestive heart failure, CVA, renal artery stenosis or peripheral arterial disease. He does not take any excessive nonsteroidal anti-inflammatories. He has no history of HIV or hepatitis. He has no history of drug use. He denies having epistaxis, sinusitis, sore throat, macroscopic hematuria, renal calculi, new bone or back pain. He had a cystoscopy which was unremarkable. He had CT scan of the abdomen which did not show any etiology to explain for his hematuria. His serum creatinine has been stable. He has no edema. 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 Review of Systems Const All systems reviewed & are unremarkable except as noted in HPI and below Physical Exam Vital Signs: Last Vital Signs Pulse 92 04/14/24 09:58 BP 110/60 04/14/24 09:58 Pulse Ox 94 04/14/24 09:58 Oxygen Delivery Method Room Air 04/14/24 09:58 BMI result Body Mass Index 26.2 Const General: comfortable and no acute distress Orientation/consciousness: patient oriented x3 HEENT Head: Yes normocephalic Mouth: Normal oral and palatal mucosa present Eyes EOM: EOMs intact bilaterally Neck Neck: Yes supple Resp Auscultation: clear to auscultation bilaterally Cardio Jugular venous distension: no JVD Rate: regular rate GI Palpation (GI): Soft to palpation Auscultation: normal bowel sounds General: Yes no CVA tenderness Back/Spine/Pelvis Back: no CVA tenderness Skin General skin exam: no rashes or lesions noted Neuro General: patient oriented x3 and moves all extremities Extrem General: Yes no pedal edema Results Reviewed Nephrology Results: Hgb 13.9 g/dl (14.0-18.0) L 04/02/24 WBC 5.1 X10*3/uL (4.8-10.8) 04/02/24 Plt Count 196 X10*3/uL (160-400) 04/02/24 Sodium 136 mmol/L (135-145) 04/02/24 Potassium 4.5 mmol/L (3.3-5.1) 04/02/24 Chloride 103 mmol/L (96-108) 04/02/24 Carbon Dioxide 26 mmol/L (22-29) 04/02/24 BUN 14 mg/dL (9-16) 04/02/24 Creatinine 1.05 mg/dL (0.5-1.4) 04/02/24 Calcium 9.2 mg/dL (8.4-10.2) 04/02/24 Assessment & Plan Assessment & Plan (1) Proteinuria: Code(s): R80.9 - Proteinuria, unspecified Category: Medical Qualifiers: Proteinuria type: other Qualified Code(s): R80.8 - Other proteinuria (2) HTN (hypertension): Code(s): I10 - Essential (primary) hypertension Category: Medical Qualifiers: Hypertension type: primary hypertension Qualified Code(s): I10 - Essential (primary) hypertension Plan Adan has history of longstanding diabetes( type 2 ). His diabetic control has been poor. He is on Trulicity but not on Jardiance or Farxiga. He is tolerating ANIKET inhibitor. I increased his lisinopril to 5 mg bid. He has history of microscopic hematuria for which he had undergone cystoscopy as well as imaging studies which were unyielding. His serum creatinine is stable. I have ordered repeat urine and blood work studies. There is no indication for any renal biopsy now. I plan to add SGLT2 i at next visit. He avoids nonsteroidal anti-inflammatories and maintain good hydration. I answered all his and his daughter's questions. Follow-up appointment given Orders: Orders Protein Creatinine Ratio, Ur 3 Months R80.8 - Other proteinuria Blood Urea Nitrogen 3 Months R80.8 - Other proteinuria Electrolytes 3 Months R80.8 - Other proteinuria Creatinine 3 Months R80.8 - Other proteinuria Medications: Changed From lisinopril 5 mg PO BID To lisinopril 5 mg PO BID 30 days 60 tabs 6RF Coding Level of Care Code Est Pt Level 4 (51568) Diagnoses Other proteinuria R80.8 Proteinuria type: other Primary hypertension I10 Hypertension type: primary hypertension
[2024-04-14 09:58] VITALS: BP 110/60; PULSE 92; O2SAT 94; BMI 26.2
== END 2024-04-14 10:30 | disposition home or self-care (01) ==
PROVIDERS: PCP Internal Medicine; Visit Provider Internal Medicine Nephrology
DX: R80.8 Other proteinuria (principal); I10 Essential (primary) hypertension
CPT/HCPCS: 99214

== ENCOUNTER → 2024-04-14 09:33 | Outpatient (BNVA) | payer MEDICARE, MEDICAID, SELFPAY | PROVIDERS: PCP Internal Medicine; Visit Provider Internal Medicine Nephrology | DX: R80.8 Other proteinuria (principal); I10 Essential (primary) hypertension | CPT/HCPCS: 99212 ==

== ENCOUNTER 2024-07-12 09:37 | Outpatient (AMB) | payer MEDICARE, MEDICAID, SELFPAY ==
--- NOTE | 2024-07-12 09:43 | A.OFFVIS_ITS ---
Vital Signs 07/12/24 09:59 Height 5 ft 6 in Weight 162 lb 7.691 oz BMI 26.2 BP 112/60 Blood Pressure Location Lt brachial Position Sitting Pulse 69 Pulse Source Pulse Oximeter Pulse Oximetry (%) 98 Oxygen Delivery Method Room Air Intake Visit Reasons: Arthritis Intake Note: Patient presents today for Arthritis. C/O pain on both hand and middle back. C/O lots of finger pain and stiffness. I been feeling pain and stiffness of the fingers for 5 years. I take Gabapentin and it doesn't work. Emergency Specialist Required: Yes Emergency Specialist Language: Food Operations Manager Services: Emergency Specialist Offered & Declined Emergency Specialist Name: Ezekiel Way Information Interpreted: clinical only (Ezekiel Sarmiento) Facility Service Associate: Facility Service Associate Present (Ezekiel) Accompanied by: Daughter Allergies No Known Allergies [No Known Allergies*] Allergy (Verified 07/12/24 09:56) Medication List - Last Reconciled 07/12/24 by Brie Coffey MD aspirin 1 tab PO DAILY blood sugar diagnostic (FreeStyle Lite Strips) As directed dulaglutide (Trulicity) 1.5 mg subcut TU dupilumab (Dupixent) 300 mg subcut Q15D insulin detemir U-100 (Levemir U-100 Insulin) 55 units subcut BEDTIME insulin lispro (Humalog U-100 Insulin) 45 units subcut TID insulin syringe-needle U-100 (BD Insulin Syringe Ultra-Fine) As directed lancets (FreeStyle Lancets) As directed lisinopril 5 mg PO BID 30 days metformin 1,000 mg PO DAILY omeprazole 20 mg PO DAILY@0630 rosuvastatin 40 mg PO BEDTIME sucralfate 1 g PO QID tamsulosin 0.4 mg PO DAILY 90 days HPI Comments Details: Patient is a 73-year-old male with diabetes, asthma, BPH, hypertension, hyperlipidemia and trigger thumb here today to reestablish care. Interval History: Patient last seen 03/01/[address] Kenny. At that time he was complaining of left thumb trigger finger. He received a cortisone injection at that time. Today patient is here re-establishing care for bilateral hand pain and knee pain. Still gets triggering of the thumb occasionally as well as other digits. Does not feel that the previous injection helped him a lot. Rheumatologic History: Left trigger finger of the thumb. 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 Review of Systems Const Details: Review of Systems Constitutional: Denies fever, chills, weight loss ENT: Denies vision changes, eye pain or eye redness, dental caries, dry mouth GI: Denies nausea, vomiting, diarrhea, abdominal pain, change in BM Pulm: Denies SOB, SÁNCHEZ, hemoptysis, wheezing Cards: Denies chest pain, palpitations Skin: Denies Raynaud's, rash, nail changes, photosensitivity, IRON POURER: Denies headaches, weakness, paresthesias, recurrent falls MSK: as per HPI All other systems reviewed and are unremarkable except noted above Physical Exam Vital Signs: Last Vital Signs Pulse 69 07/12/24 09:59 BP 112/60 07/12/24 09:59 Pulse Ox 98 07/12/24 09:59 Oxygen Delivery Method Room Air 07/12/24 09:59 BMI result Body Mass Index 26.2 Vital signs reviewed Physical Examination CONSTITUITIONAL Patient alert and cooperative. Well appearing and in no apparent painful distress HEENT Conjunctiva and sclera clear. ?Pupils equal round and reactive to light. ?No lymphadenopathy. ? CHEST/RESPIRATORY SYSTEM Normal respiratory effort and able to speak in complete sentences. ?Clear to auscultation bilaterally. ?No crackles, rales, rhonchi, wheezes heard. CARDIAC SYSTEM Regular rate and rhythm. ?S1 and S2 heard no murmurs. ?Radial pulses intact bilaterally MSK Hands: ?Good model builder strength bilaterally. No deformities noted. ?No synovitis noted to the MCPs, PIPs or DIPs. ?No tenderness to palpation of these joints. Tender A1 ericka nodule felt bilateral base of the thumb. Heberden's nodes noted throughout Wrists: ?Full range of motion at the wrists without pain. ?No tenderness to palpation or synovitis noted to the wrists. Elbows: Full range of motion without pain. No tenderness, weakness, swelling, increased warmth or erythema. Shoulders: Full range of motion without pain. No tenderness, weakness, swelling, increased warmth or erythema. Knees: ?Full range of motion. ?No tenderness, swelling, increased warmth or erythema.? Crepitations felt bilaterally Ankles: Full range of motion. ?No tenderness, swelling, increased warmth or erythema.? Feet: ?Negative squeeze test. ?No tenderness to palpation or swelling of the MTPs. Tender points:?No tenderness to palpation of the bilateral trapezius, supraspinatus, greater trochanters, anterior costochondral junctions, bilateral gluteal areas, bilateral suboccipital muscle insertions SKIN Skin intact without rashes. Results Reviewed Results Reviewed: Laboratory Tests 04/02/24 17:17 WBC 5.1 RBC 4.63 Hgb 13.9 L Hct 40.5 L Plt Count 196 Sodium 136 Potassium 4.5 Chloride 103 Carbon Dioxide 26 BUN 14 Creatinine 1.05 Calcium 9.2 Total Bilirubin 0.4 AST 21 ALT 12 Immunology labs 03/15/18 07/21/21 08:10 09:45 Rheumatoid Factor < 15.0 Cycl Citrul Peptide IgG <16 ANA LAURA Screen NEGATIVE Assessment & Plan Assessment & Plan (1) Generalized osteoarthritis: Code(s): M15.9 - Polyosteoarthritis, unspecified Plan: #Polyarticular OA Patient is a 73 y.o. male with polyarticular OA here today for re evaluation of bilateral hand pain and knee pain. Exam today consistent with osteoarthritis as well as triggering of his bilateral thumbs. Recommended topical diclofenac 4 times a day and paraffin wax for his hands Plan - Topical diclofenac 1% 4 times a day, hands and knees - Parrafin wax bath for the hands - RTC 6 months - Can consider trigger finger injections at that time if no improvement Plan I spent 32 minutes reviewing the record and labs, taking a history, examining the patient, discussing the treatment plan, ordering diagnostic work up and documenting in the medical record Medications: New diclofenac sodium 1% apply to single knee, ankle, foot; for foot includes sole/toes/top of foot 4 grams topical QID 100 grams 5RF M15.9 - Polyosteoarthritis, unspecified Coding Level of Care Code New Pt Level 3 (59849) Diagnoses Generalized osteoarthritis M15.9
[2024-07-12 09:59] VITALS: BP 112/60; PULSE 69; O2SAT 98; BMI 26.2
--- OUTSIDE RECORDS SUMMARY | 2024-07-12 10:50 | XMS_ITS | Clinical Summary ---
Author Organization [facility] ity Address [address] [place] [address] Care Team Providers Care Steam Plant Control Room Operator Name Role Phone Unavailable Primary Care Provider Unavailabl e Social History Tobacco Use Types Packs/Day Years Used Date Smoking Tobacco: Never Assessed Sex and Gender Information Value Date Recorded Sex Assigned at Not on file Legal Sex Male 3:31 PM EST Gender Identity Not on file Sexual Orientation Not on file Plan of Treatment Health Maintenance Due Date Last Done Comments DTaP,Tdap,and Td Vaccines (1 - Tdap) 10/07/1971 Pneumococcal Vaccine: 50+ Ye ars (1 of 1 - PCV) 2002 Zoster Vaccines (1 of 2) 2002 COVID-19 Vaccine ( - 2023-2 5 season) 2023 Influenza Vaccine (Season Ended) 2024 RSV Immunization Adult Patie nts (1 - 1-dose 75+ series) 10/07/2027 HIB Vaccines Aged Out No longer eligi ble based on patient's age to complete this topic HPV Vaccines Aged Out No longer eligi ble based on patient's age to complete this topic Hepatitis A Vaccines Aged Out No long er eligible based on patient's age to complete this topic Hepatitis B Vaccines Aged Out No long er eligible based on patient's age to complete this topic IPV Vaccines Aged Out No longer eligi ble based on patient's age to complete this topic MMR Vaccines Aged Out No longer eligi ble based on patient's age to complete this topic Meningococcal ACWY Vaccine Aged Out N o longer eligible based on patient's age to complete this topic Meningococcal B Vacine Aged Out No lo nger eligible based on patient's age to complete this topic RSV Immunization Patients Un tran 20 months Aged Out No longer eligible b ased on patient's age to complete this topic Varicella Vaccines Aged Out No longer eligible based on patient's age to complete this topic
--- OUTSIDE RECORDS SUMMARY | 2024-07-12 10:50 | XMS_ITS | Patient Health Record ---
Author Organization [facility] Address [address] [place] [address] Care Team Providers Care Dub Room Engineer Name Role Phone aCrine Chamberlain Primary Care Provider Unavailab Christian Garcia Unavailable [phone] Randy Ellis Unavailable Unavailable Allergies No Known Allergies Reason For Referral No Information Medications Medication SIG (Take, Route, Fr equency, Duration) Notes Start Date End Date Status Dupixent 300 MG/2ML Subcutaneous for 28 Active Jardiance 25 MG TAKE ONE TABLET BY M OUTH EVERY MORNING Oral for 90 Active Levemir 100 UNIT/ML Subcutaneous for 54 Active HumaLOG Active Sertraline HCl Activ e Lisinopril Active Aspirin 81 MG CHEW AND SWALLOW ONE TABLET BY MOUTH EVERY DAY Oral for 30 Active metFORMIN HCl Active Tamsulosin HCl 0.4 MG Oral for 90 Active Trulicity 1.5 MG/0.5ML INJECT SUBCUTANEO USLY 1 PEN ONCE A WEEK. Subcutaneous for 28 Active clonazePAM Active Gabapentin Active Problems Problem Type SNOMED Code ICD Code Onset Dates Problem Status W/U Status Risk Notes Problem 086237695 Gastro-esophagea l reflux disease without esophagitis (K21.9) Active confirmed Problem 800185581 Encounter for screening for malignant neoplasm of colon (Z12.11) Active confirmed Problem Screening for malignant neoplasm of rectum (764748196) Encounter for screening for malignant neoplasm of rectum (Z12.12) Active confirmed Problem 45645527 Preprocedural examination (Z01.818) Active confirmed Problem 611780557 Anemia, unspecified type (D64.9) Active confirmed Problem 732618686 Abdominal pain, periumbilic (R10.33) Active confirmed Plan Of Treatment Pending Test Test Name Order Date CBC w DIFF 10/08/2022 Future Test Test Name Order Date COLONOSCOPY 08/27/2015 Next Appt Details Provider Name:Christian Nielson , 08/10/2024 11:00:00 AM, [address], [address], [place], [address], Insurance Providers Payer Name Payer Address Payer Phone Subscriber Number Group Number Insured Name Patient Relationship to Insured Coverage Start Date Coverage End Date [place] OF [place] [address] [place] [id number] DERIK FARRELL Self - patient is the insured MEDICAID OF [facility] [employer] [address] [place] [address] [phone] [id number] DERIK FARRELL Self - patient is the insured Medical (General) History Medical History History ICD Code EGD 10-31-2008--small HH, no esophagitis, no Dunham's Colonoscopy 10-09-2005--neg. except for hyperplastic polyps,diverticulosis, internal hemorrhoids IDDM Hypertension Hyperlipidemia Panic attacks and depression Denies HI,CVA,Lung disease,renal disease LE neuropathy from DM Negtaive screening colonoscopy in 2015 COVID in 2020 for which he was at [facility] for 2 weeks Surgical History Surgery Date(Month/Year) Hydrocele 2021
--- OUTSIDE RECORDS SUMMARY | 2024-07-12 10:50 | XMS_ITS ---
Author Organization [facility] Address [address] [place] [address] Care Team Providers Care Cob Sawyer Name Role Phone Carine Chamberlain Primary Care Provider Unavailab Christian Garcia Unavailable [phone] Randy Ellis Unavailable Unavailable REASON FOR VISIT abd pain Encounters Encounter Location Date Provider Diagnosis [facility] [address] [place] [address] 02/10/2023 Christian Nielson Plan Of Treatment Next Appt Details Provider Name:Christian Nielson , 08/10/2024 11:00:00 AM, [address], [address], [place], [address], Progress Notes * IZABELLA LANDRYOB: (73 yo M)Acc No.[id number]:02/10/2023 Progress Notes Patient:?KENDALL LANDRY Provider:?Christian Nielson MD :1950???Age:72 Y???Sex:Male Deonte e:02/10/2023 Address:[address] [place], [place] [id number] Pcp:Carine Chamberlain Subjective: * Chief Complaints: * ???1. Abd pain. * Medical History:? Objective: * Vitals:? Assessment: Plan: * Treatment: * * The named appointment provid er may or may not be the originator of this progress note, and it is not deemed complete until electronically signed by the appointment provider. Sign off status: Pending * Provider:?Christian Nielson MD Date:? 023 Generated for Karen amaral/Rosy/James on:?07/12/2024 10:50 AM EDT
== END 2024-07-12 10:26 | disposition home or self-care (01) ==
LOC: HO.RHE 09:38
PROVIDERS: PCP Internal Medicine; Visit Provider Student in an Organized Health Care Education/Training Program
DX: M15.9 Polyosteoarthritis, unspecified (principal)
CPT/HCPCS: 99203

== ENCOUNTER → 2024-07-12 09:37 | Outpatient (BNVA) | payer MEDICARE, SELFPAY | PROVIDERS: PCP Internal Medicine; Visit Provider Student in an Organized Health Care Education/Training Program | DX: M15.9 Polyosteoarthritis, unspecified (principal) | CPT/HCPCS: 99202 ==

== ENCOUNTER 2024-07-25 16:16 | Emergency (ER) | payer MEDICARE, SELFPAY ==
--- NOTE | ~2024-07-25 | XR_ITS ---
CLINICAL HISTORY: pain 1 view abdomen Comparison: None available Findings: Mild atelectasis of the imaged lung bases. No small bowel dilatation in the imaged abdomen. Moderate to severe stool burden present. Moderate osteoarthritis of the both hips. Degenerative changes also include the partially imaged spine Mild pelvis deformities including pubic rami appear old. Sclerosis of the proximal left femur appears non aggressive and measures 1.7 cm. IMPRESSION: 1. No small bowel obstruction. 2. Moderate to severe stool burden. This document has been electronically signed by: Bruce Blanchard MD on 07/25/2024 20:06:29
[2024-07-25 16:30] VITALS: BP 142/63; PULSE 81; RESP 16; TEMP 36.5; O2SAT 98; BMI 25.3
[2024-07-25 16:46] LABS: MANUAL DIFF FLAG NO
[2024-07-25 16:47] LABS: Appearance Urine Clear; Color Urine Yellow; Glucose Urine UA >=1000 mg/dL (Negative); Leukocyte Esterase Urine Negative (Negative); Nitrite Urine Negative (Negative); PH 6.5 (5.0-9.0); Specific Gravity - Urine >= 1.030 (1.005-1.025); UMIC TRIGGER UACC YES; Urine Blood Negative (Negative); Urine Ketones Negative (Negative); Urine Protein 30 (1+) mg/dL (Neg-Trace)
[2024-07-25 16:52] LABS: Bacteria Urine None Seen (None Seen); Hyaline Casts Urine 0-2 /LPF (0-2); RBC Urine 0-2 /HPF (0-2); Squamous Epithelial Cell Urine 0-2 /HPF (0-2); WBC Urine 0-5 /HPF (0-5)
[2024-07-25 16:59] LABS: Basophils Percent Auto 0.4 % (0-2); Eosinophils Percent Auto 0.6 % (0-4); Imm Gran Abs Auto 0.01 X10*3/uL (0.00-0.03); Imm Gran Pct Auto 0.2 % (0.0-0.4); Lymphocytes Absolute Auto 2.4 X10*3/uL (1.2-4.9); Lymphocytes Percent Auto 51.3 % (20-40); Mean Corpuscular HGB Conc 34.1 g/dl (31.0-36.0); Mean Corpuscular Hemoglobin 29.9 pg (27.0-33.0); Mean Corpuscular Volume 87.6 fL (80.0-98.0); Mean Platelet Volume 9.5 fL (9.4-12.4); Monocytes Absolute Auto 0.4 X10*3/uL (0.1-1.2); Monocytes Percent Auto 9.3 % (2-11); Neutrophils Absolute Auto 1.8 x10*3/uL (2.0-8.3); Neutrophils Percent Auto 38.2 % (45-73); Platelet Count 196 X10*3/uL (160-400); Red Blood Count 4.68 X10*6/uL (4.60-5.80); Red Cell Distribution Width 13.2 % (11.0-16.0); White Blood Count 4.6 X10*3/uL (4.8-10.8)
[2024-07-25 17:04] LABS: Alanine Aminotransferase 13 U/L (0-40); Anion Gap 12 (12-20); Aspartate Amino Transferase 22 U/L (5-37); Bilirubin Total 0.3 mg/dL (0.0-1.0); Blood Urea Nitrogen 15 mg/dL (9-16); Calcium 9.5 mg/dL (8.4-10.2); Carbon Dioxide 28 mmol/L (22-29); Chloride 101 mmol/L (96-108); Creatinine Clr Calc Pharmacy 68.8; Estimated Glomerular Filt Rate > 60; Glucose Random 289 mg/dL (60-115); Potassium 4.1 mmol/L (3.3-5.1); Sodium 137 mmol/L (135-145); Total Protein 7.5 g/dL (6.5-8.0)
[2024-07-25 17:18] LABS: Alkaline Phosphatase 98 U/L (39-117)
[2024-07-25 18:43] VITALS: BP 149/72; PULSE 69; RESP 18; TEMP 36.6; O2SAT 97
--- NOTE | 2024-07-25 19:39 | ED.GENADULT ---
HPI - General Adult General Chief complaint: Abdominal Pain Stated complaint: Lower abd pain, radiating pain to testicles Time Seen by Provider: 07/25/24 18:49 Source: patient and family Limitations: language barrier History of Present Illness ED Provider: Kim Arevalo PA-C HPI narrative: 73-year-old male with a history of hypertension, BPH, diabetes, hyperlipidemia, GERD who presents with ?bladder pain times 2-3 days. Patient describes his pain as strong, and that he has to strain to urinate. Denies dysuria, hematuria, fever. Denies nausea vomiting diarrhea. Denies abdominal distention, inability to pass flatus, or constipation. Related Data Home Medications ?Medication ?Instructions ?Recorded ?Confirmed metformin 1,000 mg tablet 1,000 mg PO DAILY 03/01/20 07/12/24 insulin detemir U-100 100 unit/mL 55 unit subcut BEDTIME 12/05/20 07/12/24 subcutaneous solution (Levemir U-100 Insulin) insulin syringe-needle U-100 0.5 #10 ea 12/05/20 07/12/24 mL 30 gauge x 1/2 (BD Insulin Syringe Ultra-Fine) rosuvastatin 40 mg tablet 40 mg PO BEDTIME 12/05/20 07/12/24 blood sugar diagnostic (FreeStyle #10 ea 02/14/21 07/12/24 Lite Strips) lancets 28 gauge (FreeStyle #100 ea 02/14/21 07/12/24 Lancets) dulaglutide 1.5 mg/0.5 mL 1.5 mg subcut TU 09/04/22 07/12/24 subcutaneous pen injector (Trulicity) dupilumab 300 mg/2 mL subcutaneous 300 mg subcut Q15D 09/04/22 07/12/24 pen injector (Dupixent) insulin lispro 100 unit/mL 45 unit subcut TID 09/04/22 07/12/24 subcutaneous solution (Humalog U-100 Insulin) omeprazole 20 mg capsule,delayed 20 mg PO DAILY@0630 09/04/22 07/12/24 release aspirin 81 mg chewable tablet 1 tab PO DAILY 09/15/22 07/12/24 sucralfate 1 gram tablet 1 g PO QID 04/14/24 07/12/24 Previous Rx's ?Medication ?Instructions ?Recorded tamsulosin 0.4 mg capsule 0.4 mg PO DAILY 90 days #90 caps 03/02/24 lisinopril 5 mg tablet 5 mg PO BID 30 days #60 tabs 04/14/24 diclofenac sodium 1 % topical gel 4 g topical QID #100 grams 07/12/24 Allergies Allergy/AdvReac Type Severity Reaction Status Date / Time No Known Allergies Allergy Verified 07/25/24 16:30 [No Known Allergies*] Review of Systems Review of Systems: Yes all other systems are reviewed and are negative Constitutional: Constitutional: Denies fatigue and Denies fever(s) Cardiovascular: Cardiovascular: Denies chest pain and Denies dyspnea Respiratory: Respiratory: Denies cough and Denies dyspnea Gastrointestinal: Gastrointestinal: Reports abdominal pain, Denies constipation, Denies diarrhea, Denies nausea and Denies vomiting Genitourinary: Genitourinary: Denies hematuria, Denies dysuria, Denies flank pain and Reports urinary hesitancy Endocrine: Endocrine: Denies fatigue PMFSH Past Medical History Attestation statement: The following information was validated with the patient. 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 Physical Exam ED Vital Signs: Vital Signs - 24 hr 07/25/24 16:30 07/25/24 18:43 Temperature 97.7 F 97.9 F Pulse Rate 81 69 Respiratory Rate 16 18 Blood Pressure 142/63 H 149/72 H Pulse Oximetry 98 97 Oxygen Delivery Method Room Air Room Air BMI result Body Mass Index 25.3 Const Other: Alert well-appearing Orientation/consciousness: patient oriented x3 Resp Effort & Inspection: normal respiratory effort Cardio Other: Normal peripheral perfusion GI Other: Abdomen is nontender nondistended no guarding Skin Other: Warm dry no rash Neuro General: patient oriented x3, gait normal, no focal motor deficits and CN's II-XI intact bilaterally Psych Other: Cooperative Medical Decision Making Medical Decision Making MDM Narrative: 73-year-old male with a history of hypertension, BPH, diabetes, hyperlipidemia, GERD who presents with ?bladder pain times 2-3 days. Patient describes his pain as strong, and that he has to strain to urinate. Denies dysuria, hematuria, fever. Denies nausea vomiting diarrhea. Denies back pain, abdominal distention, inability to pass flatus, or constipation. Problem: BPH, diabetes History: Per patient I have considered the following differential diagnoses: UTI, pyelonephritis, renal colic, constipation, bowel obstruction, worsening prostate hypertrophy Plan: Screening labs including a urinalysis were already obtained from triage. The patient has no back or abdominal pain to suggest renal colic, he has no active nausea vomiting or fever to suggest pyelonephritis. And his urine is not infected. He may be constipated, his the stool burden may be compressing the bladder, we will obtain a KUB. He has no obstructive symptoms at this time. He has a underlying BPH, I had asked him this, he was not aware of what I was talking about. This could simply be his BPH. I have independently reviewed the following tests: Labs: No leukocytosis, not anemic, no electrolyte abnormality, urine not infected KUB:constipated Lab Data 07/25/24 16:41 07/25/24 16:41 Labs: Lab Results 07/25/24 Range/Units 16:41 WBC 4.6 L (4.8-10.8) X10*3/uL RBC 4.68 (4.60-5.80) X10*6/uL Hgb 14.0 (14.0-18.0) g/dl Hct 41.0 L (42.0-52.0) % MCV 87.6 (80.0-98.0) fL MCH 29.9 (27.0-33.0) pg MCHC 34.1 (31.0-36.0) g/dl RDW 13.2 (11.0-16.0) % Plt Count 196 (160-400) X10*3/uL MPV 9.5 (9.4-12.4) fL Immature Gran % (Auto) 0.2 (0.0-0.4) % Neut % (Auto) 38.2 L (45-73) % Lymph % (Auto) 51.3 H (20-40) % [place] % (Auto) 9.3 (2-11) % Eos % (Auto) 0.6 (0-4) % Baso % (Auto) 0.4 (0-2) % Lymph # (Auto) 2.4 (1.2-4.9) X10*3/uL [place] # (Auto) 0.4 (0.1-1.2) X10*3/uL Eos # (Auto) 0.0 (0.0-0.4) X10*3/uL Baso # (Auto) 0.0 (0.0-0.2) X10*3/uL Abs Immat Gran (auto) 0.01 (0.00-0.03) X10*3/uL Absolute Neuts (auto) 1.8 L (2.0-8.3) x10*3/uL Absolute Nucleated RBC 0.000 (0.0-0.012) X10*3/uL Nucleated RBC % (auto) 0.0 (0.0-0.2) /100WBC Sodium 137 (135-145) mmol/L Potassium 4.1 (3.3-5.1) mmol/L Chloride 101 (96-108) mmol/L Carbon Dioxide 28 (22-29) mmol/L Anion Gap 12 (12-20) BUN 15 (9-16) mg/dL Creatinine 0.92 (0.5-1.4) mg/dL Estim Creat Clear Calc 68.8 Estimated GFR > 60 Random Glucose 289 H (60-115) mg/dL Calcium 9.5 (8.4-10.2) mg/dL Total Bilirubin 0.3 (0.0-1.0) mg/dL AST 22 (5-37) U/L ALT 13 (0-40) U/L Alkaline Phosphatase 98 (39-117) U/L Total Protein 7.5 (6.5-8.0) g/dL Albumin 4.0 (3.5-5.0) g/dL Urine Color Yellow Urine Appearance Clear Urine pH 6.5 (5.0-9.0) Ur Specific [place] >= 1.030 H (1.005-1.025) Urine Protein 30 (1+) H (Neg-Trace) mg/dL Urine Glucose (UA) >=1000 H (Negative) mg/dL Urine Ketones Negative (Negative) mg/dL Urine Blood Negative (Negative) Urine Nitrite Negative (Negative) Ur Leukocyte Esterase Negative (Negative) Urine RBC 0-2 (0-2) /HPF Urine WBC 0-5 (0-5) /HPF Ur Squamous Epith Cells 0-2 (0-2) /HPF Urine Bacteria None Seen (None Seen) Hyaline Casts 0-2 (0-2) /LPF Discharge Plan Discharge Clinical Impression: Constipation, BPH (benign prostatic hyperplasia) Patient Disposition: Home, Self-Care Instructions: Enlarged Prostate (BPH) (ED), Constipation (ED) Additional Instructions: You were found to be considerably constipated. The rest of your labs were normal. See home care instructions. Use [id number] Colace, this is a stool softener twice a day. In addition purchase [id number] MiraLax, take it 3 to 4 times a day, until you begin having multiple large volume bowel movements. You need to stay on some kind of bowel regimen to help prevent further constipation; after stool burden alleviated, use colace and mirilax daily. You also have underlying enlarged prostate, you have this has 1 of your diagnoses, you take a medication called Flomax, to help with your urine flow. This is also contributory with your weak urine stream. Follow up with your primary care provider in a week. Prescriptions: No Action omeprazole 20 mg capsule,delayed release(DR/EC) 20 mg PO DAILY@0630 Trulicity 1.5 mg/0.5 mL pen injector 1.5 mg subcut TU Dupixent Pen 300 mg/2 mL pen injector 300 mg subcut Q15D insulin lispro [Humalog U-100 Insulin] 100 unit/mL Solution 45 unit SUBCUT TID metformin 1,000 mg tablet 1,000 mg PO DAILY (DME) insulin syringe-needle U-100 [BD Insulin Syringe Ultra-Fine] 0.5 mL 30 gauge x 1/2 syringe See Rx Instructions .ROUTE .MEDSUPPLY Qty: 10 Rx Instructions: As directed Levemir U-100 Insulin 100 unit/mL solution 55 unit subcut BEDTIME rosuvastatin 40 mg tablet 40 mg PO BEDTIME (DME) lancets [FreeStyle Lancets] 28 gauge misc See Rx Instructions topical TID Qty: 100 Rx Instructions: As directed (DME) FreeStyle Lite Strips Strip See Rx Instructions Not Applicable TID Qty: 10 Rx Instructions: As directed aspirin 81 mg tablet,chewable 1 tab PO DAILY sucralfate 1 gram tablet 1 g PO QID lisinopril 5 mg tablet 5 mg PO BID 30 Days Qty: 60 6RF tamsulosin 0.4 mg capsule 0.4 mg PO DAILY 90 Days Qty: 90 3RF diclofenac sodium 1 % gel 4 g topical QID Qty: 100 5RF Rx Instructions: apply to single knee, ankle, foot; for foot includes sole/toes/top of foot Print Language: Jordanian
[2024-07-25 19:55] VITALS: BP 149/72; PULSE 69; RESP 18; TEMP 36.6; O2SAT 97
== END 2024-07-25 19:56 | disposition home or self-care (01) ==
PROVIDERS: Emergency Provider Emergency Medicine; PCP Internal Medicine
DX: K59.00 Constipation, unspecified (principal); N40.0 Benign prostatic hyperplasia without lower urinary tract symptoms; I10 Essential (primary) hypertension; E11.9 Type 2 diabetes mellitus without complications; E78.5 Hyperlipidemia, unspecified; K21.9 Gastro-esophageal reflux disease without esophagitis
CPT/HCPCS: 36415; 74018; 80053; 81001; 85025; 99283

== ENCOUNTER → 2024-07-25 18:57 | Outpatient (BNV) | payer MEDICARE, SELFPAY | PROVIDERS: Emergency Provider Emergency Medicine; PCP Internal Medicine; Visit Provider Radiology Neuroradiology | DX: R10.30 Lower abdominal pain, unspecified (principal); K59.00 Constipation, unspecified | CPT/HCPCS: 74018 ==

== ENCOUNTER 2024-10-02 07:28 | Outpatient (REF) | payer MEDICARE, SELFPAY ==
--- OUTSIDE RECORDS SUMMARY | 2024-10-02 07:33 | XMS_ITS | Clinical Summary ---
Author Organization [facility] ity Address [address] [place] [address] Care Team Providers Care Health And Wellness Sales Consultant Name Role Phone Unavailable Primary Care Provider [...] age to complete this topic Meningococcal B Vaccine Aged Out No l onger eligible based on patient's age to complete this topic RSV Immunization Patients Un tran 20 months Aged Out No longer eligible b ased on patient's age to complete this topic Varicella Vaccines Aged Out No longer eligible based on patient's age to complete this topic
[2024-10-02 08:29] LABS: Anion Gap 11 (12-20); Blood Urea Nitrogen 11 mg/dL (9-16); Carbon Dioxide 27 mmol/L (22-29); Chloride 105 mmol/L (96-108); Estimated Glomerular Filt Rate > 60; Sodium 139 mmol/L (135-145)
[2024-10-02 08:52] LABS: PSA,Total (Free>4and<10) 0.94 ng/mL (0.00-4.00)
[2024-10-02 08:55] LABS: Creatinine Urine 110.59 mg/dL; Protein/Creatinine Ratio, Ur 0.33 (<0.2); Total Protein Urine Random 36 mg/dL (<12)
== END 2024-10-02 07:29 | disposition home or self-care (01) ==
LOC: HO.LAB 07:28
PROVIDERS: Urology; PCP Internal Medicine; Visit Provider Internal Medicine Nephrology
DX: Z12.5 Encounter for screening for malignant neoplasm of prostate (principal); R97.20 Elevated prostate specific antigen [PSA]; R80.8 Other proteinuria
CPT/HCPCS: 36415; 80051; 82565; 82570; 84153; 84156; 84520

== ENCOUNTER 2024-10-06 09:36 | Outpatient (AMB) | payer MEDICARE, MEDICAID, SELFPAY ==
[2024-10-06 09:38] VITALS: BP 117/60; PULSE 69; O2SAT 98; BMI 25.1
--- NOTE | 2024-10-06 09:38 | HO.NEPHOV ---
Vital Signs 10/06/24 09:38 Height 5 ft 7 in Weight 160 lb BMI 25.1 BP 117/60 Blood Pressure Location Rt brachial Position Sitting Pulse 69 Pulse Source Pulse Oximeter Pulse Oximetry (%) 98 Oxygen Delivery Method Room Air Intake Visit Reasons: Proteinuria-Conf w/daughter Storm Window Installer Required: No Accompanied by: Daughter Allergies No Known Allergies (No Known Allergies*) Allergy (Verified 10/06/24 09:41) Do you need a note to return to daycare/school/sports/work: No HPI Comments Details: Adan was seen in follow up for proteinuria and history of microscopic hematuria on a backdrop of longstanding diabetes. His blood sugar control had been suboptimal. He has been started on Trulicity and has lost some significant weight. He has not on Farxiga or Jardiance. He is tolerating lisinopril. He has no history of coronary artery disease, carotid stenosis, congestive heart failure, CVA, renal artery stenosis or peripheral arterial disease. He does not take any excessive nonsteroidal anti-inflammatories. He has no history of HIV or hepatitis. He has no history of drug use. He denies having epistaxis, sinusitis, sore throat, macroscopic hematuria, renal calculi, new bone or back pain. He had a cystoscopy which was unremarkable. He had CT scan of the abdomen which did not show any etiology to explain for his hematuria. His serum creatinine has been stable. He has no edema. 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 Review of Systems Const All systems reviewed & are unremarkable except as noted in HPI and below Physical Exam Vital Signs: Last Vital Signs Pulse 69 10/06/24 09:38 BP 117/60 10/06/24 09:38 Pulse Ox 98 10/06/24 09:38 Oxygen Delivery Method Room Air 10/06/24 09:38 BMI result Body Mass Index 25.1 Const General: comfortable and no acute distress Orientation/consciousness: patient oriented x3 HEENT Head: Yes normocephalic Mouth: Normal oral and palatal mucosa present Eyes EOM: EOMs intact bilaterally Neck Neck: Yes supple Resp Auscultation: clear to auscultation bilaterally Cardio Jugular venous distension: no JVD Rate: regular rate GI Palpation (GI): Soft to palpation Auscultation: normal bowel sounds General: Yes no CVA tenderness Back/Spine/Pelvis Back: no CVA tenderness Skin General skin exam: no rashes or lesions noted Neuro General: patient oriented x3 and moves all extremities Extrem General: Yes no pedal edema Results Reviewed Nephrology Results: Hgb, (14.0-18.0) 14.0 g/dl 07/25/24 WBC, (4.8-10.8) 4.6 X10*3/uL L 07/25/24 Plt Count, (160-400) 196 X10*3/uL 07/25/24 Sodium, (135-145) 139 mmol/L 10/02/24 Potassium, (3.3-5.1) 4.0 mmol/L 10/02/24 Chloride, (96-108) 105 mmol/L 10/02/24 Carbon Dioxide, (22-29) 27 mmol/L 10/02/24 BUN, (9-16) 11 mg/dL 10/02/24 Creatinine, (0.5-1.4) 0.78 mg/dL 10/02/24 Calcium, (8.4-10.2) 9.5 mg/dL 07/25/24 Urine Protein, (Neg-Trace) 30 (1+) mg/dL H 07/25/24 Urine Creatinine 110.59 mg/dL 10/02/24 Protein/Creatinin Ratio, (<0.2) 0.33 H 10/02/24 Assessment & Plan Assessment & Plan (1) HTN (hypertension): Code(s): I10 - Essential (primary) hypertension Category: Medical Qualifiers: Hypertension type: primary hypertension Qualified Code(s): I10 - Essential (primary) hypertension (2) Proteinuria: Code(s): R80.9 - Proteinuria, unspecified Category: Medical Qualifiers: Proteinuria type: other Qualified Code(s): R80.8 - Other proteinuria (3) Microscopic hematuria: Code(s): R31.29 - Other microscopic hematuria Category: Medical Plan Adan has history of longstanding diabetes( type 2 ). His diabetic control has been poor. He is on Trulicity but not on Jardiance or Farxiga. He is tolerating ANIKET inhibitor. I increased his lisinopril to 5 mg bid. He has history of microscopic hematuria for which he had undergone cystoscopy as well as imaging studies which were unyielding. His serum creatinine is stable. I have ordered repeat urine and blood work studies. There is no indication for any renal biopsy now. I plan to add SGLT2 i at next visit after cutting back on metformin. He avoids nonsteroidal anti-inflammatories and maintain good hydration. I answered all his and his daughter's questions. Follow-up appointment given Orders: Orders Electrolytes 6 Months I10 - Essential (primary) hypertension, R80.8 - Other proteinuria Creatinine 6 Months I10 - Essential (primary) hypertension, R80.8 - Other proteinuria Protein Creatinine Ratio, Ur 6 Months I10 - Essential (primary) hypertension, R80.8 - Other proteinuria Blood Urea Nitrogen 6 Months I10 - Essential (primary) hypertension, R80.8 - Other proteinuria Coding Level of Care Code Est Pt Level 4 (26264) Diagnoses Primary hypertension I10 Hypertension type: primary hypertension Other proteinuria R80.8 Proteinuria type: other Microscopic hematuria R31.29
--- OUTSIDE RECORDS SUMMARY | 2024-10-06 10:06 | XMS_ITS | Clinical Summary ---
Author Organization [facility] ity Address [address] [place] [address] Care Team Providers Care Tipple Worker Name Role Phone Unavailable Primary Care Provider [...]
== END 2024-10-06 09:57 | disposition home or self-care (01) ==
LOC: HO.HKA 09:37
PROVIDERS: PCP Internal Medicine; Visit Provider Internal Medicine Nephrology
DX: I10 Essential (primary) hypertension (principal); R80.8 Other proteinuria; R31.29 Other microscopic hematuria
CPT/HCPCS: 99214

== ENCOUNTER → 2024-10-06 09:36 | Outpatient (BNVA) | payer MEDICARE, MEDICAID, SELFPAY | PROVIDERS: PCP Internal Medicine; Visit Provider Internal Medicine Nephrology | DX: R80.8 Other proteinuria (principal); I10 Essential (primary) hypertension; R31.29 Other microscopic hematuria | CPT/HCPCS: 99212 ==

== ENCOUNTER 2025-01-08 11:21 | Outpatient (REF) | payer MEDICARE, MEDICAID, SELFPAY ==
[2025-01-08 11:39] LABS: MANUAL DIFF FLAG NO
[2025-01-08 12:31] LABS: Hematocrit 42.9 % (42.0-52.0); Hemoglobin 14.6 g/dl (14.0-18.0); Imm Gran Pct Auto 0.2 % (0.0-0.4); Mean Corpuscular HGB Conc 34.0 g/dl (31.0-36.0); Mean Corpuscular Hemoglobin 30.4 pg (27.0-33.0); Mean Corpuscular Volume 89.2 fL (80.0-98.0); Platelet Count 224 X10*3/uL (160-400); Red Blood Count 4.81 X10*6/uL (4.60-5.80); White Blood Count 4.6 X10*3/uL (4.8-10.8)
[2025-01-08 12:32] LABS: Imm Gran Abs Auto 0.01 X10*3/uL (0.00-0.03); Lymphocytes Absolute Auto 1.8 X10*3/uL (1.2-4.9); NRBC Abs Auto 0.000 X10*3/uL (0.0-0.012); NRBC Pct Auto 0.0 /100WBC (0.0-0.2)
[2025-01-08 13:07] LABS: Alanine Aminotransferase 15 U/L (0-40); Albumin Level 4.2 g/dL (3.5-5.0); Alkaline Phosphatase 94 U/L (39-117); Anion Gap 10 (12-20); Aspartate Amino Transferase 28 U/L (5-37); Blood Urea Nitrogen 9 mg/dL (9-16); Calcium 9.5 mg/dL (8.4-10.2); Carbon Dioxide 31 mmol/L (22-29); Chloride 101 mmol/L (96-108); Cholesterol 208 mg/dL (<200); Estimated Glomerular Filt Rate > 60; HDL Cholesterol 35 mg/dL (>40); Potassium 4.4 mmol/L (3.3-5.1); Sodium 138 mmol/L (135-145); Total Protein 7.7 g/dL (6.5-8.0); Triglycerides 169 mg/dL (<150)
[2025-01-08 13:28] LABS: Thyroid Stimulating Hormone 2.96 uIU/mL (0.32-4.0)
== END 2025-01-08 11:22 | disposition home or self-care (01) ==
LOC: HO.LAB 11:21
PROVIDERS: PCP Internal Medicine; Visit Provider Internal Medicine
DX: E11.65 Type 2 diabetes mellitus with hyperglycemia (principal); F41.0 Panic disorder [episodic paroxysmal anxiety]; G25.0 Essential tremor; I10 Essential (primary) hypertension; N40.0 Benign prostatic hyperplasia without lower urinary tract symptoms
CPT/HCPCS: 36415; 80053; 80061; 83036; 84443; 85025

== ENCOUNTER 2025-03-16 07:01 | Day surgery (SDC) | payer OTHER, SELFPAY ==
--- OUTSIDE RECORDS SUMMARY | 2025-02-09 07:46 | XMS_ITS | Clinical Summary ---
Author Organization [facility] ity Address [address] [place] [address] Care Team Providers Care Director Radiation Oncology Name Role Phone Unavailable Primary Care Provider [...] 2002 Zoster Vaccines (1 of 2) 2002 Depression Screening 04/12/2024 COVID-19 Vaccine (1 - 2023-2 5 season) 2024 Influenza Vaccine (#1) 2024 RSV Immunization Adult Patie nts (1 [...]
--- NOTE | 2025-03-13 13:19 | HO.ANESPROP2 ---
Documented by User: Claire Roberts NP 03/13/25 13:20 HPI - Anesthesia Eval Consult details Narrative: 74yo M for Colonoscopy PMFSH Active Problems Active Problems: All Active Problems HTN (hypertension) (Acute) Elevated PSA (Acute) History of nicotine use (Acute) Proteinuria (Acute) Microscopic hematuria (Acute) BPH (benign prostatic hyperplasia) (Acute) Abdominal pain, RLQ (Acute) Trigger thumb of left hand (Acute) COVID-19 (Acute) COVID-19 (Acute) Hydrocele in adult (Acute) Past Medical History Medical History Neuropathy Panic attacks Depression Abdominal pain, RLQ History of COVID-19 Anxiety Arthritis HTN (hypertension) High cholesterol Diabetes Family History Family History Father Brain cancer Mother Brain cancer Surgical History Surgical History History of testicular surgery H/O colonoscopy History of esophagogastroduodenoscopy (EGD) Social History Social History Alcohol intake: never Patient Tobacco Use Status: Former Tobacco user Second Hand Smoke Exposure: No Use of substances other than those prescribed or required for medical reasons: No Are you DNR?: No Advance Directives: No Advance Directives Information Provided: Yes Current occupational status: disabled 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 Meds Allergies Allergy/AdvReac Type Severity Reaction Status Date / Time No Known Allergies (No Known Allergy Verified 10/06/24 09:41 Allergies*) Home Medications ?Medication ?Instructions ?Recorded ?Confirmed ?Last Taken ?Type metformin 1,000 mg tablet 1,000 mg PO DAILY 03/01/20 03/14/25 09/03/22 History insulin detemir U-100 100 unit/mL 55 unit subcut BEDTIME 12/05/20 07/12/24 09/03/22 History subcutaneous solution (Levemir U-100 Insulin) insulin syringe-needle U-100 0.5 #10 ea 12/05/20 07/12/24 Unknown History mL 30 gauge x 1/2 (BD Insulin Syringe Ultra-Fine) rosuvastatin 40 mg tablet 40 mg PO BEDTIME 12/05/20 03/14/25 09/03/22 History blood sugar diagnostic (FreeStyle #10 ea 02/14/21 07/12/24 Unknown History Lite Strips) lancets 28 gauge (FreeStyle #100 ea 02/14/21 07/12/24 Unknown History Lancets) dupilumab 300 mg/2 mL subcutaneous 300 mg subcut Q15D 09/04/22 03/14/25 08/25/22 History pen injector (Dupixent) insulin lispro 100 unit/mL 45 unit subcut TID 09/04/22 03/14/25 09/04/22 History subcutaneous solution (Humalog U-100 Insulin) omeprazole 20 mg capsule,delayed 20 mg PO DAILY@0630 09/04/22 03/14/25 09/03/22 History release aspirin 81 mg chewable tablet 1 tab PO DAILY 09/15/22 03/14/25 Unknown History clonazepam 03/14/25 Unknown History sertraline 50 mg tablet 50 mg PO DAILY 03/14/25 03/14/25 Unknown History Exam Pertinent Lab Results Pertinent Lab Results: Laboratory Tests 01/08/25 11:38 WBC 4.6 L Hgb 14.6 Hct 42.9 Plt Count 224 Sodium 138 Potassium 4.4 Chloride 101 Carbon Dioxide 31 H BUN 9 Creatinine 0.84 Assessment and Plan Assessment Anesthesia Assessment: Chart Reviewed Documented by User: Rebecca Gallagher MD 03/16/25 07:51 PMFSH Past Medical History Medical History Neuropathy Panic attacks Depression Abdominal pain, RLQ History of COVID-19 Anxiety Arthritis HTN (hypertension) High cholesterol Diabetes Family History Family History Father Brain cancer Mother Brain cancer Family history of problems with anesthesia: No Surgical History Surgical History History of testicular surgery H/O colonoscopy History of esophagogastroduodenoscopy (EGD) History of Problems with Anesthesia: No Social History Social History Alcohol intake: never Patient Tobacco Use Status: Former Tobacco user Second Hand Smoke Exposure: No Use of substances other than those prescribed or required for medical reasons: No Are you DNR?: No Advance Directives: No Advance Directives Information Provided: Yes Current occupational status: disabled 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 Meds Allergies Allergy/AdvReac Type Severity Reaction Status Date / Time No Known Allergies (No Known Allergy Verified 10/06/24 09:41 Allergies*) Home Medications ?Medication ?Instructions ?Recorded ?Confirmed ?Last Taken ?Type metformin 1,000 mg tablet 1,000 mg PO DAILY 03/01/20 03/14/25 09/03/22 History insulin detemir U-100 100 unit/mL 55 unit subcut BEDTIME 12/05/20 07/12/24 09/03/22 History subcutaneous solution (Levemir U-100 Insulin) insulin syringe-needle U-100 0.5 #10 ea 12/05/20 07/12/24 Unknown History mL 30 gauge x 1/2 (BD Insulin Syringe Ultra-Fine) rosuvastatin 40 mg tablet 40 mg PO BEDTIME 12/05/20 03/14/25 09/03/22 History blood sugar diagnostic (FreeStyle #10 ea 02/14/21 07/12/24 Unknown History Lite Strips) lancets 28 gauge (FreeStyle #100 ea 02/14/21 07/12/24 Unknown History Lancets) dupilumab 300 mg/2 mL subcutaneous 300 mg subcut Q15D 09/04/22 03/14/25 08/25/22 History pen injector (Dupixent) insulin lispro 100 unit/mL 45 unit subcut TID 09/04/22 03/14/25 09/04/22 History subcutaneous solution (Humalog U-100 Insulin) omeprazole 20 mg capsule,delayed 20 mg PO DAILY@0630 09/04/22 03/14/25 09/03/22 History release aspirin 81 mg chewable tablet 1 tab PO DAILY 09/15/22 03/14/25 Unknown History clonazepam 03/14/25 Unknown History sertraline 50 mg tablet 50 mg PO DAILY 03/14/25 03/14/25 Unknown History Exam Airway Mallampati Class: II TM Dist: >3cm Neck ROM: Full Heart: rrr Lungs: cta Assessment and Plan Assessment Anesthesia Assessment: Anesthesia Plan Discussed Final Anesthetic Review Family History of Problems with Anesthesia: No History of Problems with Anesthesia: No NPO: Yes ASA Class: III Final Preanesthetic Review: No Changes in Pt Med Stat, Meds/Allgs Chart Reviewed, Consent Obtained/Reviewed and Anes Risks/Benef Reviewed Patient Risk: Intermediate Procedure Risk: Low Anesthetic Plan Anesthetic Plan: MAC: and Agree w/ Assess. and Plan Disposition: Standard PACU
[2025-03-14 14:46] VITALS: BMI 26.0
[2025-03-16 07:38] VITALS: BMI 25.7
[2025-03-16 07:49] VITALS: BP 143/72; PULSE 86; RESP 16; TEMP 36.3; O2SAT 99
[2025-03-16 07:58] LABS: Glucose, Whole Blood 195 mg/dL (60-115)
[2025-03-16] MEDS: Lactated Ringers 1,000 ML 100 ML IVCONT (08:00)
[2025-03-16 09:50] VITALS: BP 108/58; PULSE 84; RESP 16; TEMP 36.1; O2SAT 95
--- NOTE | 2025-03-16 09:54 | PM.OP ---
Brief Operative Note Date of Service: 03/16/25 Pre-op diagnosis: Screening Post-op diagnosis: other (Polyp) Procedure: Colonoscopy to the cecum with bx/removal of polyp Surgeon: Christian Nielson MD Anesthesia: MAC Was an Gas Stove Servicer Helper used for this Procedure?: No Estimated blood loss (mL): 2.0 Pathology: other (A. Ascending colon polyp) Condition: stable Disposition: PACU
[2025-03-16 10:10] VITALS: BP 117/64; PULSE 90; RESP 16; TEMP 36.1; O2SAT 98
--- NOTE | 2025-03-16 10:38 | OP_ITS ---
DATE OF SERVICE: 03/16/2025 SURGEON: Christian Nielson MD INDICATIONS: The patient presents for evaluation of colorectal cancer screening. Full consent has been obtained from him for this, including risks of bleeding and perforation. PREOPERATIVE DIAGNOSIS: Colorectal cancer screening. POSTOPERATIVE DIAGNOSIS: Colorectal cancer screening, small colon polyp, diverticulosis, and internal hemorrhoids. PROCEDURE PERFORMED: Colonoscopy to the cecum with biopsy and removal of polyp. ESTIMATED BLOOD LOSS: COMPLICATIONS: ANESTHESIA: Medication used, monitored anesthesia care. ASSISTANTS: SPECIMENS: DESCRIPTION OF PROCEDURE: The patient was placed in the left lateral decubitus position. The digital rectal exam revealed no abnormalities. The Olympus video pediatric colonoscope was entered into the rectum and advanced easily to the cecum. Once in the cecum, I did identify normal-appearing cecal pouch with appendiceal orifice and a normal-appearing ileocecal valve. There was transillumination of light deep in the lower quadrant. The entire cecum and ileocecal valve appeared normal. The scope was slowly withdrawn assessing all mucosal surfaces carefully. Preparation was excellent. In the proximal ascending colon, there was a flat 3 to 4 mm polyp which was biopsied and completely removed with cold biopsy forceps. I did not visualize any other polyps, colitis, nor angiodysplasia. There was a moderate amount of sigmoid diverticulosis. In the rectum, scope was retroflexed visualizing internal hemorrhoids, but no other pathology. The rectal mucosa appeared normal. The scope was straightened and withdrawn from the patient. He tolerated the procedure well and was returned to the recovery area in stable condition. IMPRESSION: 1. Small colon polyp. 2. Diverticulosis. 3. Internal hemorrhoids. PLAN: The results of biopsy will be checked. Given this minimal finding, his age, 2 previous negative colonoscopies, and no family history of colon cancer, I do not think he needs any further screening colonoscopies even if the polyp today is a tubular adenoma. He will otherwise see me as needed. MD DEBORAH Biswas/JAIRO / [id number] MTDD
== END 2025-03-16 11:10 | disposition home or self-care (01) ==
PROVIDERS: PCP Internal Medicine; Visit Provider Internal Medicine
PROC: 0DJD8ZZ Inspection of Lower Intestinal Tract, Via Natural or Artificial Opening Endoscopic (ICD-10-PCS; CPT 45378; principal; 2025-03-16 08:30)
DX: Z12.11 Encounter for screening for malignant neoplasm of colon (principal); D12.2 Benign neoplasm of ascending colon; K57.30 Diverticulosis of large intestine without perforation or abscess without bleeding; K64.8 Other hemorrhoids; K21.9 Gastro-esophageal reflux disease without esophagitis; I10 Essential (primary) hypertension; E78.5 Hyperlipidemia, unspecified; E11.40 Type 2 diabetes mellitus with diabetic neuropathy, unspecified; Z79.4 Long term (current) use of insulin; Z79.84 Long term (current) use of oral hypoglycemic drugs; Z79.82 Long term (current) use of aspirin; Z79.899 Other long term (current) drug therapy
CPT/HCPCS: 45380; 82947; 88305; J2704